=== PATIENT | female | born 1935 | race Caucasian/White ===

== ENCOUNTER → 2018-02-06 07:14 | Outpatient (CLI) | payer MEDICARE, OTHER, SELFPAY ==
[2018-02-06 07:35] LABS: CREATININE FINGERSTICK 0.9 mg/dL (0.55-1.02); EGFR FINGERSTICK > 60.0000 mL/min (>60)
== END ==
PROVIDERS: Family Provider Student in an Organized Health Care Education/Training Program; PCP Student in an Organized Health Care Education/Training Program; Visit Provider Nurse Practitioner Family
DX: R07.9 Chest pain, unspecified (principal)
CPT/HCPCS: 71260; Q9967; A4216

== ENCOUNTER 2018-02-06 08:28 | Inpatient (IN) | payer MEDICARE, OTHER, SELFPAY ==
[2018-02-06] VITALS (12 sets, daily range): BP systolic 134–181; BP diastolic 58–95; PULSE 56–66; RESP 16–18; TEMP 36.1–36.7; O2SAT 94–98; BMI 30.3; BMI 29.9
--- NOTE | 2018-02-06 08:40 | EKG12_ITS ---
Test Reason : SOB Blood Pressure : / mmHG Vent. Rate : 064 BPM Atrial Rate : 064 BPM P-R Int : 160 ms QRS Dur : 078 ms QT Int : 426 ms P-R-T Axes : -59 036 056 degrees QTc Int : 439 ms Normal sinus rhythm Nonspecific ST and T wave abnormality Abnormal ECG Confirmed by SABINE ORTIZ ([id number]), science editor DOMINGA CURRAN ([id number] on 02/12/2018 1:52:58 PM Referred By: Jamal Elena Confirmed By:SABINE ORTIZ
[2018-02-06 09:02] LABS: Absolute Lymphocyte Count 1.21 X10^3/ul (0.83-4.51); Absolute Neutrophil Count 2.7 X10^3/uL (2.0-7.7); Basophil# 0.01 X10^3/uL; Basophil% 0.2 % (0-1); Eosinophil# 0.19 X10^3/uL; Eosinophils% 4.3 % (0-5); Hematocrit 39.3 % (37-47); Hemoglobin 12.3 g/dl (12.0-15.0); Lymphocyte # 1.21 X10^3/ul (4.0); Lymphocyte % 27.4 % (19-41); Mean Corp Hgb Conc 31.3 g/gl (32-36); Mean Corpuscular Hgb 28.1 pg (27.0-32.0); Mean Corpuscular Volume 89.7 fL (81-99); Mean Platelet Vol. 9.2 fl (6.2-12.0); Monocyte% 6.8 % (0-10); Neutrophil # 2.69 X10^3/uL (2.7-7.7); Neutrophil % 61.1 % (47-70); Platelet Count 160 K/mm3 (150-450); RBC Distribution Width CV 13.6 % (11.6-14.6); RBC Distribution Width SD 44.7 fl (35.1-43.9); Red Blood Count 4.38 M/mm3 (4.2-5.4); White Blood Count 4.4 K/mm3 (4.4-11.0)
[2018-02-06 09:04] LABS: POSITIVE COUNT NO; POSITIVE DIFFERENTIAL NO; POSITIVE MORPHOLOGY NO
[2018-02-06] MEDS: Aspirin 81 MG TAB.CHEW 324 MG PO (09:04)
[2018-02-06 09:20] LABS: Anion Gap 9 (5-15); BUN 17 mg/dL (7-18); BUN/Creat Ratio 16.3 RATIO (10-20); Calcium,Total 8.7 mg/dL (8.5-10.1); Chloride 106 mmol/L (98-107); Creatinine, Serum 1.04 mg/dL (0.55-1.02); EST Glomerular Filtration Rate 54 mL/min (>60); Est Glom Filt Rate - Afr Amer 65 mL/min (>60); Estimated Creatinine Clearance 34.12 ml/min; Glucose 89 mg/dL (74-106); Sodium Level 144 mmol/L (136-145)
--- NOTE | 2018-02-06 09:21 | ED.RN ---
LAB RESULTED TROP 3.410. PHYSICIAN NOTIFIED
--- NOTE | 2018-02-06 09:54 | NURSING ---
DR TL ZUNIGA
--- NOTE | 2018-02-06 09:58 | ED.VISSUMM ---
- ER Visit Summary Date of Service: 02/06/18 Chief Complaint: Abnormal CT History of Present Illness: The patient is a 82 F presenting from CAT scan with abnormal CT results. Patient states 2 nights ago she woke up with shortness of breath and diaphoresis. She denied chest pain. She went to see her master dyer today. She was sent for CT scan to check her aortic repair which was done in 2006. CT was found CT showed bilateral PE and she was sent to the ED for further evaluation. Physical Examination: Vitals are stable. Patient is afebrile. Alert no acute distress. HEENT exam is unremarkable. Neck is supple. Lungs are clear and equal bilaterally. Heart is regular rate and rhythm. Abdomen is soft nontender nondistended. Extremities are unremarkable. Skin is warm and dry. No focal neurologic deficit. Remainder of exam is unremarkable. Emergency Department Course and Treatment: EKG is sinus T-wave inverted in V2 is changed from previous EKG 2010. CT chest was reviewed and shows small bilateral PE. Essentially stable appearance of the thoracic aorta. CBC unremarkable. Creatinine 1.04. Troponin is 3.410. Discussed with Dr. Guzman who recommends IV heparin and admission for echocardiogram. Heparin was ordered. Discussed with Dr. Black for admission. Disposition: Admission Impression: Bilateral PE, elevated troponin This note was generated with Voxel dictation software. It may contain incorrect words, spelling, and punctuation that were not noted in review of the chart prior to signing ED Disposition - Plan for ED Patient: Chief Complaint: Shortness of Breath Referrals: Yohannes Acosta DO [Primary Care Provider] -
[2018-02-06] MEDS: Enoxaparin 80 MG/0.8 ML Syringe SC ×2 (12:41→22:15)
[2018-02-06] MEDS: Lisinopril 20 MG Tablet PO (12:42)
[2018-02-06] MEDS: Metoprolol(XL)Succ 100 MG Tablet PO (12:42)
--- NOTE | 2018-02-06 14:27 | NURSING ---
Read and reviewed SN Documentation
--- NOTE | 2018-02-06 16:17 | PCM.HP.STD ---
Problem List (1) Pulmonary emboli Status: Acute Qualifiers: Pulmonary embolism type: other Chronicity: acute (2) NSTEMI (non-ST elevated myocardial infarction) Status: Acute (3) Thyroid nodule Status: Acute (4) Aortic mural thrombus Status: Acute History of Present Illness Date of Admission: 02/06/18 Chief Complaint: shortness of breath. 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 The CAT scan showed a mass in the right thyroid measuring 2.2 x 2.7 cm, multiple small lymph nodes in the mediastinum, several nonobstructive intraluminal filling defects bilaterally consistent with pulmonary emboli. Also noted to have a mural thrombus seen in the proximal abdominal aorta. Patient states that she has had blood clots previously in her neck stent was on Coumadin. 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) Type 1 diabetes mellitus without complications (Chronic) Nonspecific abnormal unspecified cardiovascular function study (Chronic) Palpitations (Chronic) Atrial premature depolarization (Chronic) Ventricular premature depolarization (Chronic) Medical History: Medical History (Last Reviewed 02/06/18 @ 16:24 by Scottie Black DO) Hyperlipidemia (Chronic) E78.5 Hypertension (Chronic) I10 Atherosclerotic heart disease of [place] coronary artery without angina pectoris (Chronic) I25.10 half-way use of drug (Chronic) Z79.899 Type 1 diabetes mellitus without complications (Chronic) E10.9 Nonspecific abnormal unspecified cardiovascular function study (Chronic) R94.30 Palpitations (Chronic) R00.2 Atrial premature depolarization (Chronic) I49.1 Ventricular premature depolarization (Chronic) I49.3 Dizziness and giddiness R42 Precordial chest pain R07.2 Allergies paroxetine HCl [From Paxil] Allergy (Verified 02/06/18 08:30) Nausea rosuvastatin calcium [From Crestor] Allergy (Verified 02/06/18 08:30) Nausea simvastatin [From Zocor] Allergy (Verified 02/06/18 08:30) Nausea Home Medications: Ambulatory Orders Medication Instructions Recorded Aspirin [Aspirin, Baby] 81 mg PO DAILY@0800 10/01/14 Lisinopril [Zestril] 20 mg PO DAILY 10/01/14 Metoprolol(XL)Succ [Toprol Xl 100 mg PO DAILY 10/01/14 (Beta Lazara)] Oxycodone HCl/Acetaminophen 1 - 2 tab PO Q4H PRN PRN #30 tab 10/08/14 [Percocet 5/325] nitroglycerin 0.4 mg sublingual 0.4 mg SUBLINGUAL Q5M PRN 08/21/17 tablet Surgical History: Surgical History (Last Reviewed 02/06/18 @ 16:24 by Scottie Black DO) History of aortic aneurysm repair (Chronic) Onset Date: ~2008 Z98.890, Z86.79 History of bladder suspension procedure Z98.890, Z87.448 History of hernia repair Z98.890, Z87.19 History of partial hysterectomy Z90.711 Smoking Status: Never smoker Tobacco Use: Non-smoker Alcohol: None Drugs: None - *Family History Maternal Family History: Family History (Last Reviewed 02/06/18 @ 16:24 by Scottie Black DO) Brother Heart disease Father Myocardial infarction Review of Systems Constitutional: Denies: Anorexia, Chills, Fever Eyes: Denies: Blurred vision, Double vision HEENT: Denies: Head Aches, Sinus Congestion, Sinus Drainage Cardiovascular: Reports: Chest Pain. Denies: Edema Respiratory: Reports: Shortness of Breath. Denies: Cough Gastrointestinal: Denies: Abdominal Pain, Nausea, Vomiting Genitourinary: Denies: Dysuria Gynecological: Denies: Breast symptoms Musculoskeletal: Denies: Joint Pain, Joint Tenderness Skin: Denies: Rash, Wounds Neurological: Denies: Numbness, Tingling, Focal weakness Psychiatric: Denies: Anxiety, Depression Hematologic/ Lymphatic: Reports: Hx of blood clot. Denies: Easy Bruising, Easy Bleeding Comment: All review of systems are negative except as mentioned in the history of present illness and the other review of systems. VTE Information - Inpt Only VTE Present on Admission: No VTE Pharm Prophylaxis ordered?: Yes Patient Problems: Active and Suspected Problems (Last Updated 08/21/17 @ 11:08 by Diana Caballero) Pulmonary emboli (Acute) NSTEMI (non-ST elevated myocardial infarction) (Acute) Thyroid nodule (Acute) Aortic mural thrombus (Acute) - Physical Exam General: Alert, Cooperative, No apparent distress HEENT: Atraumatic, Normocephalic Oral: Moist Mucosa, No Gingival or Mucosal Lesions/ Ulcerations Neck: No Nodes, Thyroid Normal Size and Texture Lungs: Clear to auscultation, Normal air movement, No rhonchi, No wheeze Cardiovascular: Regular rate, Regular Rhythm, Normal S1, Normal S2, No murmurs Abdomen: Bowel Sounds Present, Soft, Non Tender, Non-Distended, No Hepato-splenomegaly Extremities: No edema, No Calf Tenderness Skin: No rashes, No breakdown Musculoskeletal: No Tenderness to Palpation of Joints or Extremities, No Muscle Wasting Neurological: Sensory exam intact to light touch and pain, - - No clonus. Psych/Mental Status: Normal Affect, Appropriate Vital Signs Temp Pulse Resp BP Pulse Ox 36.7 C 58 L 16 169/69 H 96 02/06/18 10:55 02/06/18 15:30 02/06/18 10:55 02/06/18 10:55 02/06/18 10:55 Oxygen Delivery Method Room Air Weight: 74.4 kg Body Mass Index (BMI) 29.9 Intake and Output for Last 24 Hours 02/04/18 02/05/18 02/06/18 23:59 23:59 23:59 Intake Total 240 / 240 Balance 240 / 240 Laboratory Tests Past 24 Hrs 02/06/18 02/06/18 12:00 14:45 Troponin I 3.220 H* 2.810 H* CT chest:There is inhomogeneous enlargement of the right lobe of the thyroid. There is a 2.2 cm x 2.7 cm low density mass in the its inferior pole. Minimal increased markings at the lung bases suggestive of scarring. There is no demonstrated pleural abnormality. Sternal cerclage wires are present from a prior sternotomy. There are multiple small lymph nodes within the mediastinum, which are normal in size and morphology most compatible with reactive lymph hyperplasia. Normal hilar regions. There are several nonobstructive intraluminal filling defects in the left intervertebral bore pulmonary artery and the branches in the left lower lobe. Small filling defects are also seen in branches of the right lower lobe pulmonary arteries as well as the right upper lobe pulmonary arteries. This is in keeping with the pulmonary embolism. They a descending thoracic aorta as a transverse dimension of 3.5 cm. Stable appearance of the descending thoracic aorta with evidence of ectasia and tortuosity at the diaphragmatic hiatus. Mural thrombus is seen in the proximal abdominal aorta. The transverse dimension of the proximal descending thoracic aorta just distal to the aortic arch measures 3.3 cm. There are multi-level degenerative changes of the thoracic spine. There is no demonstrated abnormality of the visualized upper abdomen. Assessment/Plan All Active Problems (Last Updated 08/21/17 @ 11:08 by Diana Caballero) Pulmonary emboli (Acute) NSTEMI (non-ST elevated myocardial infarction) (Acute) Thyroid nodule (Acute) Aortic mural thrombus (Acute) 1. Bilateral pulmonary emboli Suspect coming from the legs with patient is noted to have an abdominal aortic mural thrombus that could have been the source Currently on Lovenox, will plan is to change management administrator to oral agents on the I discussed the patient about the novel anticoagulants and Coumadin. Recommended the novel anticoagulants over Coumadin. Patient agrees. We will likely initiate on February 07. Will check echocardiogram to evaluate for RV strain Duplex of the lower extremities is not necessary as it will not change the patient's management Patient will need to be on anticoagulation for at least 6 months but it may be lifelong as this is an provoked clot and patient has a reported history of clots in her neck but I am not sure if those were DVTs or peripheral arterial disease 2. Non-STEMI Presumably type II due to RV strain from the pulmonary emboli However, on review of the images the clot burden is lower than I would expect with this kind of elevation of troponins Will consult cardiology for further input 3. Thyroid mass/nodule Measures 2.2 x 2.7 cm Will check TSH and thyroid ultrasound 4. Aortic mural thrombus Incidental finding on the CAT scan Patient be on anticoagulation Patient's son at bedside and all questions answered. Code Visit Inpatient E&M: 95033 Init Hosp L3
--- NOTE | 2018-02-06 19:12 | PCM.CONS.C ---
Problem List (1) Abnormal cardiac enzyme level Status: Acute (2) NSTEMI (non-ST elevated myocardial infarction) Status: Acute (3) Pulmonary emboli Status: Acute Qualifiers: Pulmonary embolism type: other Chronicity: acute (4) History of aortic aneurysm repair Status: Chronic (5) Atherosclerotic heart disease of [place] coronary artery without angina pectoris Status: Chronic Qualifiers: [place] vs. transplanted heart: three affiliated heart Qualified Code(s): I25.10 - Atherosclerotic heart disease of [place] coronary artery without angina pectoris (6) Hyperlipidemia Status: Chronic Qualifiers: Hyperlipidemia type: pure hypercholesterolemia Qualified Code(s): E78.00 - Pure hypercholesterolemia, unspecified; E78.0 - Pure hypercholesterolemia (7) Hypertension Status: Chronic Qualifiers: Hypertension type: essential hypertension Qualified Code(s): I10 - Essential (primary) hypertension Reason for Consult Date of Consultation: 02/06/18 History of Present Illness: The patient is a 82 year old white female with a past medical history which has included underlying thoracic aortic aneurysm status post repair-2006, [id number] significant, hyperlipidemia and hypertension who presents for evaluation of abnormal cardiac enzymes in the setting of acute pulmonary emboli. The patient states for several months now she has not felt well. However more recently she has noted concerns of shortness of breath and dyspnea associated with chest discomfort. These symptoms have waxed and waned. She has denied ongoing orthopnea or PND or peripheral pitting edema. There has been no clear-cut near syncopal or syncopal event that she admits to at this time. She was further evaluated by the outpatient staff with a follow-up chest CT scan. She was noted to have evidence on her report of a stable thoracic aortic repair and bilateral pulmonary emboli. She was evaluated in the emergency department for the aforementioned concerns. There she was found to have an abnormal troponin I level which has subsequently decreased. An ECG was reported which was reported as demonstrating sinus rhythm with a T-wave abnormality in lead V2 reportedly unchanged from prior ECG from 2010. (The ECG of today is currently unavailable at this time for review). The patient was subsequently placed in the PCU for further evaluation care and medical management including anticoagulant therapy. At the present time she states she is resting comfortably. She has had no obvious acute symptoms. She states she has not noted an elevated heart rate or elevated respiratory rate. She denies any recent history of prolonged immobility. She denies any recent surgical procedures. [] Past Medical History Allergies/Adverse Reactions: Allergies paroxetine HCl [From Paxil] Allergy (Verified 02/06/18 08:30) Nausea rosuvastatin calcium [From Crestor] Allergy (Verified 02/06/18 08:30) Nausea simvastatin [From Zocor] Allergy (Verified 02/06/18 08:30) Nausea Home Medications: Ambulatory Orders Medication Instructions Recorded Aspirin [Aspirin, Baby] 81 mg PO DAILY@0800 10/01/14 Lisinopril [Zestril] 20 mg PO DAILY 10/01/14 Metoprolol(XL)Succ [Toprol Xl 100 mg PO DAILY 10/01/14 (Beta Lazara)] Oxycodone HCl/Acetaminophen 1 - 2 tab PO Q4H PRN PRN #30 tab 10/08/14 [Percocet 5/325] nitroglycerin 0.4 mg sublingual 0.4 mg SUBLINGUAL Q5M PRN 08/21/17 tablet Past Medical History (Chronic Problems): Chronic Problems (Last Reviewed 02/06/18 @ 16:24 by Scottie Black DO) History of aortic aneurysm repair (Chronic ~2008) Hyperlipidemia (Chronic) Hypertension (Chronic) Atherosclerotic heart disease of [place] coronary artery without angina pectoris (Chronic) 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) Type 1 diabetes mellitus without complications (Chronic) Nonspecific abnormal unspecified cardiovascular function study (Chronic) Palpitations (Chronic) Atrial premature depolarization (Chronic) Ventricular premature depolarization (Chronic) - *Family History Maternal Family History: Family History (Last Reviewed 02/06/18 @ 16:24 by Scottie Black DO) Brother Heart disease Father Myocardial infarction Smoking Status: Never smoker Tobacco Use: Non-smoker Alcohol: None Drugs: None Review of Systems - Review of Systems General: Denies: Fever, Night Sweats, Fatigue Cardiovascular: Reports: Chest Discomfort, Shortness of Breath. Denies: Orthopnea, PND, Peripheral Edema, Palpitations, Lightheadedness, Dizziness, Near Syncope, Syncope Respiratory: Reports: Shortness of Breath. Denies: Cough, Sputum Production, Hemoptysis Gastrointestinal: Denies: Hematemesis, Hematochezia, Melena Genitourinary: Denies: Dysuria, Hematuria Skin: Denies: Rash Subjectve: This is an 82-year-old white female who appears to be resting comfortably at the moment in no acute distress. Objective: Vital Signs Temp Pulse Resp BP Pulse Ox 98.1 F 65 16 135/63 H 98 02/06/18 16:55 02/06/18 16:55 02/06/18 16:55 02/06/18 16:55 02/06/18 16:55 Oxygen Delivery Method Room Air Weight: 164 lb 0.383 oz Body Mass Index (BMI) 29.9 Intake and Output for Last 24 Hours 02/04/18 02/05/18 02/06/18 23:59 23:59 23:59 Intake Total 600 / 600 Balance 600 / 600 General: Awake, Alert, Oriented x 3, Cooperative, No Acute Distress HEENT: Atraumatic, Normocephalic, PERRL, EOMI, Sclera Non Icteric Oral: Moist Mucosa Neck: Supple, Good ROM, No JVD Lungs: Clear to auscultation Cardiovascular: Regular Rhythm, Normal S1, Physiologically Split S2 Vascular: No Carotid Bruits Abdomen: Bowel Sounds Present, Soft, Non Tender Extremities: No Cyanosis, No Clubbing, No edema Lymphatic: No Lymph Node Enlargement Neurological: No Focal Motor or Sensory Deficit Psych/Mental Status: Appropriate, Normal Affect 02/06/18 12:00: Troponin I 3.220 H* 02/06/18 14:45: Troponin I 2.810 H* Rhythm: Sinus rhythm EKG: As noted above ECHO: 09/15/2014: Left ventricle: Normal with an LVEF of 60%; mild MR; mild TR; mild TR; estimated RV systolic pressure of 34 mmHg Cardiac Cath: 06/06/2006: [facility]: Left ventricle normal with an LVEF 60%; left main coronary artery normal; LAD status post first diagonal branch with a an eccentric 25% stenosis; diagonal branch system with 10% stenosis; LCx with diffuse 10-25% stenosis; RCA with proximal 25% smooth eccentric appearing stenosis; aortic root aneurysmal CT Surgery: 06/22/2006: [facility]: Graft wrapping of the distal aortic suture line with the graft being a 33 mm tube graft Chest CT Scan: As noted above: Please see official report Assessment/Plan 1. Chest pain/shortness of breath The patient presents with chest pain/shortness of breath. There is concern this may be related to her underlying pulmonary emboli. However she has been found to have abnormal cardiac enzymes which may be related to her pulmonary emboli and right ventricular strain and a type II supply demand mismatch non-ST segment elevation ID type event. She is being monitored. Her cardiac enzymes are being followed and are decreasing. Her ECG will be followed. A transthoracic echocardiogram has been requested to evaluate her right and left ventricular size, wall motion, and systolic function. In the interim she is being treated with medical management. This has included anticoagulant therapy. 2. Abnormal cardiac enzymes Again she has abnormal cardiac enzymes. These may be related to her pulmonary emboli as described above. However she is also being evaluated for any obvious separate primary cardiovascular involvement. This will include her follow-up ECGs, echocardiogram, and she may need additional noninvasive or invasive studies as deemed appropriate. 3. Non-ST segment elevation ID At the present time the concern is her findings compatible with a non-ST segment elevation ID are compatible to her PE with right ventricular strain and supply demand mismatch. However she will be further evaluated. Her echocardiogram will be assessed for any obvious wall motion abnormalities that would suggest underlying progression of CAD and a separate myocardial related event. She may also need additional noninvasive or invasive studies to screen for or further dealing made any concerns of ongoing CAD/myocardial ischemia, etc. related events. In the interim she will continue medical management. This has included her history of antiplatelet therapy, nitrates as needed, her beta-blockers, her afterload reducing agents, lipid-lowering agents, etc. 4. Thoracic aortic aneurysm status post repair-remote The CT scan would suggest that this is stable with no acute findings 5. CAD In the past she has had non-angiographically significant CAD. She has not required repeat invasive study. Based upon the ongoing concerns she will undergo further evaluation care as described above. 6. Hyperlipidemia He should continue risk factor evaluation care as deemed appropriate. 7. Hypertension She will continue medical management as deemed appropriate. 8. Thoracic aortic aneurysm status post repair-remote CT scan would suggest that this is stable with no acute findings Comment: The above was discussed and reviewed with the patient and her family members present. The patient's case is also been previously discussed with the [facility] emergency department staff. This note was generated with transOMICation software. It may contain incorrect words, spelling, and punctuation that were not noted in checking the note before signing.
[2018-02-06] MEDS: 0.9% NaCl Peripheral Flush Adult/Peds IV (22:07)
[2018-02-07 03:00] VITALS: PULSE 59
[2018-02-07 04:00] VITALS: BP 158/58; PULSE 58; RESP 18; TEMP 36.7; O2SAT 95
[2018-02-07 05:06] LABS: Absolute Lymphocyte Count 1.38 X10^3/ul (0.83-4.51); Absolute Neutrophil Count 2.3 X10^3/uL (2.0-7.7); Basophil# 0.03 X10^3/uL; Basophil% 0.7 % (0-1); Eosinophil# 0.22 X10^3/uL; Hematocrit 38.5 % (37-47); Hemoglobin 12.1 g/dl (12.0-15.0); Lymphocyte # 1.38 X10^3/ul (4.0); Lymphocyte % 31.5 % (19-41); Mean Corp Hgb Conc 31.4 g/gl (32-36); Mean Corpuscular Volume 89.1 fL (81-99); Mean Platelet Vol. 9.4 fl (6.2-12.0); Monocyte% 9.1 % (0-10); Neutrophil # 2.34 X10^3/uL (2.7-7.7); Neutrophil % 53.5 % (47-70); Platelet Count 163 K/mm3 (150-450); RBC Distribution Width CV 13.4 % (11.6-14.6); RBC Distribution Width SD 43.6 fl (35.1-43.9); Red Blood Count 4.32 M/mm3 (4.2-5.4); White Blood Count 4.4 K/mm3 (4.4-11.0)
[2018-02-07 05:12] LABS: International Normalized Ratio 1.1
[2018-02-07 05:13] LABS: Partial Thromboplast Time 37.5 Seconds (24.1-36.2)
[2018-02-07 05:18] LABS: Anion Gap 8 (5-15); BUN 17 mg/dL (7-18); BUN/Creat Ratio 18.1 RATIO (10-20); Calcium,Total 8.7 mg/dL (8.5-10.1); Chloride 110 mmol/L (98-107); Creatinine, Serum 0.94 mg/dL (0.55-1.02); EST Glomerular Filtration Rate 61 mL/min (>60); Est Glom Filt Rate - Afr Amer 74 mL/min (>60); Estimated Creatinine Clearance 37.75 ml/min; Glucose 97 mg/dL (74-106); Sodium Level 145 mmol/L (136-145)
[2018-02-07 05:29] LABS: POSITIVE COUNT NO; POSITIVE DIFFERENTIAL NO; POSITIVE MORPHOLOGY NO
[2018-02-07 05:37] VITALS: BP 132/57; PULSE 56; RESP 18; TEMP 36.6; O2SAT 96
[2018-02-07] MEDS: Aspirin 81 MG TAB.CHEW PO (05:38)
[2018-02-07] MEDS: Lisinopril 20 MG Tablet PO (05:39)
[2018-02-07 05:45] LABS: Cholesterol 224 mg/dL (200); High Density Lipoprotein 36 mg/dL; Thyroid Stim Hormone (TSH) 0.67 uIU/mL (0.358-3.74); Triglycerides 134 mg/dL; Very Low Density Lipoprotein 27 mg/dL (5-40)
--- NOTE | 2018-02-07 05:55 | EKG12_ITS ---
Test Reason : AM EKG Blood Pressure : / mmHG Vent. Rate : 064 BPM Atrial Rate : 064 BPM P-R Int : 156 ms QRS Dur : 082 ms QT Int : 442 ms P-R-T Axes : 002 061 080 degrees QTc Int : 455 ms Normal sinus rhythm Nonspecific ST and T wave abnormality Abnormal ECG When compared with ECG of 06-FEB-2018 09:05, MANUAL COMPARISON REQUIRED, DATA IS UNCONFIRMED Confirmed by SABINE ORTIZ ([id number]), book or script editor DOMINGA CURRAN ([id number]) on 02/12/2018 3:16:43 PM Referred By: Jamal Elena Confirmed By:SABINE ORTIZ
--- NOTE | 2018-02-07 09:23 | STRESSREP ---
Stress Test Report Date: 02/07/2018 Procedure: Pharmacologic stress nuclear imaging study Indications: Chest pain; shortness of breath; abnormal cardiac enzymes; status post thoracic aortic aneurysm repair; bilateral pulmonary emboli Consent: Per the patient Procedure: The patient underwent pharmacologic (Regadenoson) evaluation with a peak heart rate of 83 beats per minute (59 predicted maximal heart rate) and a peak blood pressure of 130/76 mmHg. The baseline ECG demonstrated sinus bradycardia: Nonspecific T-wave abnormality. The peak pharmacologic ECG demonstrated no obvious ECG changes. There were no cardiac dysrhythmias pretest, during pharmacologic infusion, or recovery. There was no complaint of chest discomfort during pharmacologic infusion or recovery. The examination was discontinued secondary to completion of protocol. Impression: 1. Pharmacologic (Regadenoson) evaluation 2. Peak pharmacologic ECG with with continued nonspecific T-wave abnormality with no obvious ECG changes. 3. There were no cardiac dysrhythmias pretest, during pharmacologic infusion, or recovery 4. Nuclear images pending Myocardial perfusion imaging study: Technique: The patient was injected with 11.2 millicuries of technetium 99m Cardiolite and subsequently rest SPECT Cardiolite nuclear imaging was obtained in the horizontal long, vertical long, and short axis views. The patient underwent pharmacologic (Regadenoson) evaluation with a peak heart rate of 83 beats per minute (59 % percent predicted maximal heart rate) and a peak blood pressure of 130/76 mmHg. The patient was injected with 33.1 millicuries of technetium 99m Cardiolite and subsequently stress SPECT Cardiolite nuclear imaging was obtained in the horizontal long, vertical long, and short axis views. A gated Cardiolite study at peak stress was obtained. Interpretation: Rest and stress SPECT Cardiolite nuclear imaging status post realignment, normalization, and attenuation correction demonstrate relative uniform tracer uptake and myocardial perfusion appearing within normal limits. There is end systolic thickening and brightening. The gated Cardiolite study demonstrates myocardial thickening and inward wall motion. The reported LVEF is 69 %. Impression: 1. Rest and stress SPECT Cardiolite nuclear imaging demonstrate relative uniform tracer uptake and myocardial perfusion appearing within normal limits. 2. The gated Cardiolite study reports an LVEF of 69 %. This note was generated with KS12ation software. It may contain incorrect words, spelling, and punctuation that were not noted in checking the note before signing.
[2018-02-07 09:32] VITALS: BP 125/64; PULSE 65; RESP 16; TEMP 36.7; O2SAT 93
[2018-02-07 09:39] VITALS: PULSE 65
[2018-02-07] MEDS: Enoxaparin 80 MG/0.8 ML Syringe SC (09:39)
[2018-02-07] MEDS: Metoprolol(XL)Succ 100 MG Tablet PO (09:39)
[2018-02-07 11:00] VITALS: PULSE 68
--- NOTE | 2018-02-07 12:47 | CASEMGMT ---
RN CM Assessment complete. See Link. -Pt denies any dc needs. States she drives, is independent, no needs identified. Jhonatan HAZELN RN ACM
--- NOTE | 2018-02-07 13:22 | CASEMGMT ---
Social Work Met with patient in room as RN CM indicated that patient was interested in completing advance directives. This SW spent much time discussing/explaining advance directive documents. Patient would like to discuss this with her family before she completes the documents. This SW provided patient with advance directives forms and this SW card to take in case questions arise. SW to be available if additional needs/questions arise. SHWETA Dodge
--- NOTE | 2018-02-07 13:35 | PCM.DC ---
- Discharge Diagnoses Current Active Problems: Current Active and Chronic Problems (Last Reviewed 02/06/18 @ 16:24 by Scottie Black DO) Pulmonary emboli (Acute) NSTEMI (non-ST elevated myocardial infarction) (Acute) Thyroid nodule (Acute) Aortic mural thrombus (Acute) Abnormal cardiac enzyme level (Acute) You will use the following diet at home:: Cardiac - low cholesterol, low sodium Your food should be the consistency of: Regular Your liquids should be the consistency of: Regular/Thin Discharge Activity: Return to Normal Activity Additional Instructions: Please discuss the findings of your thyroid ulstrasound with your PCP. Allergies/Adverse Reactions: Allergies paroxetine HCl [From Paxil] Allergy (Verified 02/06/18 08:30) Nausea rosuvastatin calcium [From Crestor] Allergy (Verified 02/06/18 08:30) Nausea simvastatin [From Zocor] Allergy (Verified 02/06/18 08:30) Nausea Medications to take at Discharge Aspirin [Aspirin, Baby] 81 mg PO DAILY@0800 10/01/14 Lisinopril [Zestril] 20 mg PO DAILY 10/01/14 Metoprolol(XL)Succ [Toprol Xl (Beta Lazara)] 100 mg PO DAILY 10/01/14 Oxycodone HCl/Acetaminophen [Percocet 5-325] 1 - 2 tab PO Q4H PRN PRN #30 tab 10/08/14 nitroglycerin 0.4 mg sublingual tablet 0.4 mg SUBLINGUAL Q5M PRN 08/21/17 Rivaroxaban [Xarelto] 15 mg PO BID #42 tab 02/07/18 Rivaroxaban [Xarelto] 20 mg PO DAILY #30 tab 02/07/18 The following prescriptions were given: Rivaroxaban [Xarelto] 15 mg PO BID #42 tab Rivaroxaban [Xarelto] 20 mg PO DAILY #30 tab Primary Care Physician: Yohannes Acosta DO [Primary Care Provider] - Please follow up with your Primary Care Physician in: 1 week Test Results: Test results from this visit will be discussed in further detail at your follow-up appointment, if applicable. Proposed Discharge Date: 02/07/18
--- NOTE | 2018-02-07 14:31 | CASEMGMT ---
Per Magdaleno WINKLER, pt to be sent home on Xarelto and med was e-scribed to [facility] previously. Per pharmacist, pt's initial co-pay for the Xarelto 15mg twice daily will be $320 and the Xarelto 20mg daily will then be $47.00. Pt updated on all at this time and provided with Xarelto 30 free co-pay card at this time, voices understanding. Advised pt that she could also place call to [email or web address] to check on any discounts directly from them after using the coupon card, voices understanding. Advised pt to f/u with Cardiology and if there are future concerns with the bo of Xarelto to contact [facility], voices understanding. George DAIGEL CM
--- NOTE | 2018-02-07 15:32 | PCM.DC.SUM ---
<Reid Brothers - Last Filed: 02/07/18 15:32> Discharge Date and Diagnosis Date of Admission: 02/06/18 Date of Discharge: 02/07/18 - Primary Discharge Diagnosis Acute pulmonary emboli NSTEMI 2/2 above BL thyroid masses Hx aortic aneurysm repair HLD HTN - Secondary Discharge Diagnosis Chronic Problems (Last Reviewed 02/06/18 @ 16:24 by Scottie Black DO) History of aortic aneurysm repair (Chronic ~2008) Hyperlipidemia (Chronic) Hypertension (Chronic) Atherosclerotic heart disease of [place] coronary artery without angina pectoris (Chronic) care home use of drug (Chronic) Type 1 diabetes mellitus without complications (Chronic) Nonspecific abnormal unspecified cardiovascular function study (Chronic) Palpitations (Chronic) Atrial premature depolarization (Chronic) Ventricular premature depolarization (Chronic) Hospital Course and Treatment Imaging Results: Echo: Interpretation Summary The study was technically difficult. Left ventricular systolic function is normal. The estimated ejection fraction is 55 %. The left atrium is mildly enlarged. The right atrium is mildly enlarged. Mild (1+) mitral valve insufficiency. Mild to moderate (1-2+) tricuspid valve insufficiency. Mild (1+) pulmonic valve insufficiency. Epicardial fat. Right ventricular systolic pressure estimated to be 42 mmHg. Transmitral diastolic flow velocities suggest diastolic dysfunction (pseudonormal pattern). Stress Test: Impression: 1. Rest and stress SPECT Cardiolite nuclear imaging demonstrate relative uniform tracer uptake and myocardial perfusion appearing within normal limits. 2. The gated Cardiolite study reports an LVEF of 69 %. US/Thyroid IMPRESSION: Bilateral thyroid masses. Mildly prominent thyroid gland. Consults: [facility] - cardiology Operations: None Procedures: 2-D Echocardiogram, Stress test Summary of Care Provided: Physical exam on day of discharge: General: Resting comfortably NAD Psych: A/Ox3 normal affect HEENT: PEARRLA AT NC Neck: Supple NT CV: RRR no m/t/r/g/h Resp: CTA Abd: [id number] Soft NT no guarding or rigidity Ext: DP2+= no edema Skin: W/D normal turgor Lymph/Heme: No active bleeding or adenopathy Neuro: CN2-12 intact Hospital course: The patient is a 82 year old F with a history of blood clots in her neck, history of aortic aneurysm repair, hyperlipidemia, bilateral thyroid masses, hypertension, who presented to the emergency room with chief complaint of shortness of breath progressively worsening for several weeks. She had reported to her cardiology office and had a CT of the chest performed demonstrating a mass in the right thyroid measuring 2.2 x 2.7 cm, multiple small lymph nodes in the mediastinum, filling defects consistent with pulmonary emboli, and was sent to the hospital for admission. She had previously been on Coumadin for the clots in her neck, and their etiology is unclear. She was started on Xarelto. She is maintained on telemetry. She underwent a thyroid ultrasound which demonstrated 2 large thyroid masses however the patient stated that she was aware of these and had foregone biopsy in the past. TSH was normal. Echocardiogram was performed which demonstrated an EF of 55%, mild to moderate 1-2+ tricuspid valve insufficiency, RVSP of 42 mmHg, diastolic dysfunction. She does not require oxygen. She had markedly elevated cardiac enzymes with a troponin of 3.410 which trended down to 2.810 was felt to have non-ST segment elevation myocardial infarction secondary to demand ischemia from the PE. Cardiology was consulted and she underwent a stress test which was negative. LDL was checked and was elevated at 161 with an elevated total cholesterol 224, however the patient is statin intolerant. I advised a low-cholesterol diet and follow-up. I also advised her to discuss the findings of her thyroid ultrasound with her PCP to decide if there will be further work up. She was discharged home to continue Xarelto for her PEs. She will require follow-up with her PCP in 1-2 weeks. This patient was seen by Reid Brothers PA-C under the supervision of Doctor Wayne. [] Discharge Diet: Low fat/ Low Cholesterol, 2000 mg Sodium Diet Discharge Activity: Return to Normal Activity Home Medications: Medications to take at Discharge Aspirin [Aspirin, Baby] 81 mg PO DAILY@0800 10/01/14 Lisinopril [Zestril] 20 mg PO DAILY 10/01/14 Metoprolol(XL)Succ [Toprol Xl (Beta Lazara)] 100 mg PO DAILY 10/01/14 Oxycodone HCl/Acetaminophen [Percocet 5-325] 1 - 2 tab PO Q4H PRN PRN #30 tab 10/08/14 nitroglycerin 0.4 mg sublingual tablet 0.4 mg SUBLINGUAL Q5M PRN 08/21/17 Rivaroxaban [Xarelto] 15 mg PO BID #42 tab 02/07/18 Rivaroxaban [Xarelto] 20 mg PO DAILY #30 tab 02/07/18 Following Prescrptions Were Given to Patient: Rivaroxaban [Xarelto] 15 mg PO BID #42 tab Rivaroxaban [Xarelto] 20 mg PO DAILY #30 tab Primary Care Physician: Yohannes Acosta DO [Primary Care Provider] - Please follow up with your Primary Care Physician in: 1 week Disposition: Home Minutes spent on discharge:: 35 Patient Condition:: Stable Medical Necessity - Tobacco Use Smoking Status: Never smoker Tobacco Use: Non-smoker Meaningful Use Info Meaningful Use Diagnoses (Choose all that apply): None applicable <Scottie Black - Last Filed: 02/07/18 16:29> Discharge Date and Diagnosis - Secondary Discharge Diagnosis Chronic Problems (Last Reviewed 02/06/18 @ 16:24 by Scottie Black DO) History of aortic aneurysm repair (Chronic ~2008) Hyperlipidemia (Chronic) Hypertension (Chronic) Atherosclerotic heart disease of [place] coronary artery without angina pectoris (Chronic) care home use of drug (Chronic) Type 1 diabetes mellitus without complications (Chronic) Nonspecific abnormal unspecified cardiovascular function study (Chronic) Palpitations (Chronic) Atrial premature depolarization (Chronic) Ventricular premature depolarization (Chronic) Hospital Course and Treatment Operations: None Procedures: 2-D Echocardiogram, Stress test Summary of Care Provided: Patient seen and examined independently. Data reviewed. I agree with the above note by the physician educational assistant teacher. The patient is a 82 year old F presents with shortness of breath. Patient was found to have bilateral PE. Additionally patient did have a non-ST elevation myocardial infarction based on her cardiac enzymes. Patient was seen by cardiology and underwent an echocardiogram as well as a stress test. Stress test was normal. The non-ST vision myocardial infarction is a type II event related with the heart strain given the pulmonary emboli. Patient will continue with Xarelto. Patient will be on Xarelto for at least 6 months. Patient to follow-up with hematology in the interim to see if she may require lifelong anticoagulation. Additionally, patient was noted to have a thyroid masses in both lobes of her thyroid with the right being greater than the left. This was addressed to the patient and she expressed knowledge of this seen at the been present there for about 10 years. She does not know the size stated that about 10 years ago the were going to have a biopsy but she was simply found to have a carotid stenosis and that I did not occur at that time and it is unclear but may just been lost to follow-up as subsequently. It is unclear if these have increased in size over this time but I would further defer in regards to the patient getting a biopsy for her primary care physician. To review prior ultrasounds to see if there has been a change or not. If there is no change in the chance of this being malignancy is very low but if there has been subsequent change then biopsy would be recommended as the size is greater than 3 cm on the right. The report does not mention that they are cystic in nature. [] Discharge Diet: Low fat/ Low Cholesterol, 2000 mg Sodium Diet Discharge Activity: Return to Normal Activity Disposition: Home Minutes spent on discharge:: 35 Patient Condition:: Stable Meaningful Use Info Meaningful Use Diagnoses (Choose all that apply): VTE - VTE Anticoag overlap given w/in hospital stay or rx'd at dc?: No Pt receive overlap for 5 days?: No Reason overlap not ordered, prescribed, or given for 5 days: Procedure Not Indicated Code Visit OBSV E&M: 22338 Observation care discharge
--- NOTE | 2018-02-07 16:58 | PCM.PN.CARD ---
Subjectve: The patient was evaluated earlier this day. She appeared to be without acute symptoms or adverse events. Objective: Vital Signs Temp Pulse Resp BP Pulse Ox 98.0 F 68 16 125/64 H 93 02/07/18 09:32 02/07/18 11:00 02/07/18 09:32 02/07/18 09:32 02/07/18 09:32 Oxygen Delivery Method Room Air Weight: 164 lb 0.383 oz Body Mass Index (BMI) 29.9 Intake and Output for Last 24 Hours 02/05/18 02/06/18 02/07/18 23:59 23:59 23:59 Intake Total 600 / 600 620 / 620 Balance 600 / 600 620 / 620 General: Awake, Alert, Oriented x 3, Cooperative, No Acute Distress HEENT: Atraumatic, Normocephalic, PERRL, EOMI, Sclera Non Icteric Oral: Moist Mucosa Neck: Supple, Good ROM, No JVD Lungs: Clear to auscultation Cardiovascular: Regular Rhythm, Normal S1, Normal S2 Abdomen: Bowel Sounds Present, Soft, Non Tender Extremities: No Cyanosis, No Clubbing, No edema Neurological: No Focal Motor or Sensory Deficit Psych/Mental Status: Appropriate, Normal Affect 02/07/18 04:50: Triglycerides 134, Cholesterol 224 H, LDL Cholesterol 161 H, VLDL Cholesterol 27, HDL Cholesterol 36 L 02/07/18 04:50: WBC 4.4, RBC 4.32, Hgb 12.1, Hct 38.5, MCV 89.1, MCH 28.0, MCHC 31.4 L, RDW 13.4, RDW Differential 43.6, Plt Count 163, MPV 9.4, Immature Gran % (Auto) 0.200, Neut % (Auto) 53.5, Lymph % (Auto) 31.5, [place] % (Auto) 9.1, Eos % (Auto) 5.0, Baso % (Auto) 0.7, Absolute Neuts (auto) 2.3, Total Counted Not Reportable 02/07/18 04:50: PT 14.0, INR 1.1, APTT 37.5 H 02/07/18 04:50: Sodium 145, Potassium 4.0, Chloride 110 H, Carbon Dioxide 27.0, Anion Gap 8, BUN 17, Creatinine 0.94, Est GFR (MDRD) Af Amer 74, Est GFR (MDRD) Non-Af 61, BUN/Creatinine Ratio 18.1, Glucose 97, Calcium 8.7 Rhythm: Sinus rhythm ECHO: See official report Stress Test: See official report Medical Necessity - Tobacco Use Smoking Status: Never smoker Tobacco Use: Non-smoker Assessment/Plan 1. Chest pain/shortness of breath The patient presents with chest pain/shortness of breath. There is concern this may be related to her underlying pulmonary emboli. However she has been found to have abnormal cardiac enzymes which may be related to her pulmonary emboli and right ventricular strain and a type II supply demand mismatch non-ST segment elevation HI type event. Her cardiac enzymes are being followed and are decreasing. Her transthoracic echocardiogram demonstrated overall preserved left ventricular wall motion and systolic function. Her pharmacologic stress nuclear imaging study demonstrated myocardial perfusion appearing within normal limits. Thus it does not appear she has evidence for underlying acute coronary syndrome with respect to a type I event with ongoing myocardial ischemia or injury. Hopefully the studies are reassuring that her abnormal cardiac enzymes are related to her pulmonary emboli and right ventricular strain and a type II supply demand mismatch non-ST segment elevation HI event. 2. Abnormal cardiac enzymes Again she has abnormal cardiac enzymes. These may be related to her pulmonary emboli as described above. He has undergone evaluation and care as noted above. She will continue noncardiac evaluation and care of her pulmonary emboli. 3. Non-ST segment elevation HI At the present time the concern is her findings compatible with a non-ST segment elevation HI are compatible to her PE with right ventricular strain and supply demand mismatch. She has been assessed as noted above. The present time she will continue risk factor modification medical therapy as deemed appropriate and care for her pulmonary emboli. 4. Thoracic aortic aneurysm status post repair-remote The CT scan would suggest that this is stable with no acute findings 5. CAD In the past she has had non-angiographically significant CAD. She has not required repeat invasive study. 6. Hyperlipidemia He should continue risk factor evaluation care as deemed appropriate. 7. Hypertension She will continue medical management as deemed appropriate. 8. Thoracic aortic aneurysm status post repair-remote CT scan would suggest that this is stable with no acute findings Comment: The above was discussed and reviewed with the patient and her family members present. This note was generated with [employer] software. It may contain incorrect words, spelling, and punctuation that were not noted in checking the note before signing.
== END 2018-02-07 14:42 | disposition home or self-care (01) | DRG 175 ==
LOC: ED 08:53 → PCU 10:16
PROVIDERS: Internal Medicine Cardiovascular Disease; Emergency Provider Emergency Medicine; Family Provider Student in an Organized Health Care Education/Training Program; PCP Student in an Organized Health Care Education/Training Program
DX: I26.99 Other pulmonary embolism without acute cor pulmonale (principal); I21.A1 Myocardial infarction type 2; I25.10 Atherosclerotic heart disease of native coronary artery without angina pectoris; Z86.79 Personal history of other diseases of the circulatory system; E07.9 Disorder of thyroid, unspecified; Z79.899 Other long term (current) drug therapy; E78.5 Hyperlipidemia, unspecified; I10 Essential (primary) hypertension
CPT/HCPCS: 36415; 71260; 76536; 78452; 80048; 80061; 84443; 84484; 85025; 85610; 85730; 93005; 93017; 93306; 99285; A9500; Q9967; A4216; J2785

== ENCOUNTER → 2018-09-20 | Outpatient (CLI) | payer MEDICARE, OTHER, SELFPAY ==
[2018-09-02 11:18] VITALS: BMI 29.7
[2018-09-20 15:42] LABS: International Normalized Ratio 1.1; Prothrombin Time (Protime)PT. 13.8 SECONDS (11.7-14.9)
== END | disposition home or self-care (01) ==
LOC: LAB.FUTURE 13:26
PROVIDERS: Family Provider Student in an Organized Health Care Education/Training Program; PCP Student in an Organized Health Care Education/Training Program; Referring Provider Internal Medicine Cardiovascular Disease; Visit Provider Internal Medicine Cardiovascular Disease
DX: I26.99 Other pulmonary embolism without acute cor pulmonale (principal); I74.10 Embolism and thrombosis of unspecified parts of aorta; Z79.01 Long term (current) use of anticoagulants
CPT/HCPCS: 36415; 85610

== ENCOUNTER 2018-09-28 09:01 | Outpatient (RCR) | payer MEDICARE, OTHER, SELFPAY ==
[2018-09-02 11:18] VITALS: BMI 29.7
[2018-09-28 09:49] LABS: International Normalized Ratio 3.1; Prothrombin Time (Protime)PT. 32.4 SECONDS (11.7-14.9)
== END 2018-10-01 16:00 | disposition home or self-care (01) ==
LOC: LAB 09:01
PROVIDERS: Family Provider Student in an Organized Health Care Education/Training Program; PCP Student in an Organized Health Care Education/Training Program; Referring Provider Internal Medicine Cardiovascular Disease; Visit Provider Internal Medicine Cardiovascular Disease
DX: I26.99 Other pulmonary embolism without acute cor pulmonale (principal); I74.10 Embolism and thrombosis of unspecified parts of aorta; Z79.01 Long term (current) use of anticoagulants
CPT/HCPCS: 36415; 85610

== ENCOUNTER → 2018-10-04 | Outpatient (CLI) | payer MEDICARE, OTHER, SELFPAY ==
[2018-09-02 11:18] VITALS: BMI 29.7
--- NOTE | 2018-10-04 10:42 | BI_ITS ---
MAMMOGRAPHY - BILATERAL SCREENING 3-D TOMOSYNTHESIS REASON FOR EXAM: Female, 83 years old. Bilateral Screening 3-D tomosynthesis PERTINENT HISTORY: No significant family history. TECHNIQUE: 2-D mammograms and 3-D Tomosynthesis of the breast (s) were performed. CAD was performed. COMPARISON: July 31, 2016. FINDINGS: The breast composition is composed of scattered fibroglandular density. Scattered benign calcifications are seen. No dense spiculated masses or suspicious microcalcifications are identified. No architectural distortion is identified. There is no skin thickening or retraction. There has been no significant change since the prior study. BI/SCREEN MAMM (CAD) W/HELIO BILAT IMPRESSION: No mammographic signs of malignancy. Routine yearly mammograms recommended. ASSESSMENT CATEGORY: BIRADS Category 1: Negative. A letter regarding these results will be sent to the patient by the facility within 30 days. FOLLOW UP RECOMMENDATION: Yearly follow up mammogram recommended. (A) Approximately 10% of breast cancers are not detected by mammography. A normal mammogram should not delay biopsy of a clinically suspicious abnormality. Electronically Signed: Conrad Mosqueda MD at 13:26 EDT , Service support ,
== END | disposition home or self-care (01) ==
LOC: OPBI 10:37
PROVIDERS: Family Provider Student in an Organized Health Care Education/Training Program; PCP Student in an Organized Health Care Education/Training Program; Referring Provider Internal Medicine Hematology & Oncology; Visit Provider Internal Medicine Hematology & Oncology
DX: Z12.31 Encounter for screening mammogram for malignant neoplasm of breast (principal)
CPT/HCPCS: 77063; 77067

== ENCOUNTER 2018-10-29 13:21 | Outpatient (RCR) | payer MEDICARE, OTHER, SELFPAY ==
[2018-09-02 11:18] VITALS: BMI 29.7
[2018-10-07 11:59] LABS: Prothrombin Time (Protime)PT. 49.4 SECONDS (11.7-14.9)
[2018-10-07 12:06] LABS: International Normalized Ratio 5.3
[2018-10-09 14:10] LABS: International Normalized Ratio 2.9; Prothrombin Time (Protime)PT. 30.5 SECONDS (11.7-14.9)
[2018-10-16 16:45] LABS: International Normalized Ratio 2.8
[2018-10-29 14:04] LABS: International Normalized Ratio 2.3; Prothrombin Time (Protime)PT. 24.9 SECONDS (11.7-14.9)
== END 2018-10-29 14:21 | disposition home or self-care (01) ==
LOC: LAB 13:21
PROVIDERS: Family Provider Student in an Organized Health Care Education/Training Program; PCP Student in an Organized Health Care Education/Training Program; Referring Provider Internal Medicine Cardiovascular Disease; Visit Provider Internal Medicine Cardiovascular Disease
DX: I26.99 Other pulmonary embolism without acute cor pulmonale (principal); I74.10 Embolism and thrombosis of unspecified parts of aorta; Z79.01 Long term (current) use of anticoagulants
CPT/HCPCS: 36415; 85610

== ENCOUNTER 2018-11-11 15:59 | Outpatient (RCR) | payer MEDICARE, OTHER, SELFPAY ==
[2018-09-02 11:18] VITALS: BMI 29.7
[2018-11-04 13:48] VITALS: BMI 30.3
[2018-11-11 17:03] LABS: International Normalized Ratio 2.3; Prothrombin Time (Protime)PT. 25.7 SECONDS (11.7-14.9)
== END 2018-11-11 16:00 | disposition home or self-care (01) ==
LOC: LAB 15:59
PROVIDERS: Family Provider Student in an Organized Health Care Education/Training Program; PCP Student in an Organized Health Care Education/Training Program; Referring Provider Internal Medicine Cardiovascular Disease; Visit Provider Internal Medicine Cardiovascular Disease
DX: I26.99 Other pulmonary embolism without acute cor pulmonale (principal); I74.10 Embolism and thrombosis of unspecified parts of aorta; Z79.01 Long term (current) use of anticoagulants
CPT/HCPCS: 36415; 85610

== ENCOUNTER 2018-12-17 11:53 | Outpatient (RCR) | payer MEDICARE, OTHER, SELFPAY ==
[2018-11-26 12:49] VITALS: BMI 30.2
[2018-12-17 12:37] LABS: International Normalized Ratio 1.8; Prothrombin Time (Protime)PT. 21.1 SECONDS (11.7-14.9)
== END 2019-01-01 06:19 | disposition home or self-care (01) ==
LOC: LAB 11:53
PROVIDERS: Family Provider Student in an Organized Health Care Education/Training Program; PCP Student in an Organized Health Care Education/Training Program; Referring Provider Internal Medicine Cardiovascular Disease; Visit Provider Internal Medicine Cardiovascular Disease
DX: I26.99 Other pulmonary embolism without acute cor pulmonale (principal); I74.10 Embolism and thrombosis of unspecified parts of aorta; Z79.01 Long term (current) use of anticoagulants
CPT/HCPCS: 36415; 85610

== ENCOUNTER → 2018-12-17 | Outpatient (CLI) | payer MEDICARE, OTHER, SELFPAY ==
[2018-11-26 12:49] VITALS: BMI 30.2
--- NOTE | 2018-12-17 10:39 | CDU_ITS ---
Reason For Study: dizziness, TIA Rt. Velocities/BP Lt. Velocities/BP Prox CCA 61.7/14.7 cm/sec. Prox CCA 81.4/19.5 cm/sec. Mid CCA 60.4/14.7 cm/sec. Mid CCA 67.4/19.5. cm/sec. Dist CCA 63.0/14.7 cm/sec. Dist CCA 68.3/19.5 cm/sec. Prox ICA 57.8/14.7 cm/sec. Prox ICA 65.5/20.1 cm/sec. Mid ICA 73.4/23.9 cm/sec. Mid ICA 77.8/24.8 cm/sec. Dist ICA 83.8/21.3. cm/sec. Dist ICA 72.9/24.5 cm/sec. Rt. ICA/CCA = 1.4. Lt. ICA/CCA = 1.2. Prox ECA 90.4/10.8 cm/sec. Prox ECA 74.0/10.4 cm/sec. Rt. Vert. 30.8/8.1 cm/sec. Lt. Vert. 46.5/12.4 cm/sec. Right Extracranial There is homogeneous, smooth atherosclerotic plaque noted in the right common carotid artery. There is heterogeneous, irregular atherosclerotic plaque noted in the right internal carotid artery. There is homogeneous, smooth atherosclerotic plaque noted in the right external carotid artery. Antegrade flow is noted in the right vertebral artery. Left Extracranial There is homogeneous, smooth atherosclerotic plaque noted in the left common carotid artery. There is heterogeneous, irregular atherosclerotic plaque noted in the left internal carotid artery. There is intimal thickening but no significant atherosclerotic plaque noted in the left external carotid artery. Antegrade flow is noted in the left vertebral artery. Procedure Carotid Duplex [id number]. The exam was diagnostic. Exam performed in department. Interpretation Summary Minimal irregular plague at the proximal right internal carotid with <50% stenosis Smooth plague at the proximal right external carotid with <50% stenosis Minimal irregular plague at the proximal left internal carotid with <50% stenosis. Intimal thickening of the proximal left external carotid with <50% stenosis. Patent and antegrade bilateral vertebrals. Ordering Physician: Jamal Elena Performed By: Prieto Murrell RVT
== END | disposition home or self-care (01) ==
LOC: CVS 10:37
PROVIDERS: Family Provider Student in an Organized Health Care Education/Training Program; PCP Student in an Organized Health Care Education/Training Program; Referring Provider Nurse Practitioner Family; Visit Provider Nurse Practitioner Family
DX: I65.22 Occlusion and stenosis of left carotid artery (principal); R42 Dizziness and giddiness; I26.99 Other pulmonary embolism without acute cor pulmonale; I74.10 Embolism and thrombosis of unspecified parts of aorta; Z79.01 Long term (current) use of anticoagulants
CPT/HCPCS: 36415; 85610; 93880

== ENCOUNTER 2019-01-10 13:47 | Outpatient (RCR) | payer MEDICARE, OTHER, SELFPAY ==
[2018-11-26 12:49] VITALS: BMI 30.2
[2019-01-10 14:52] LABS: International Normalized Ratio 3.3; Prothrombin Time (Protime)PT. 34.1 SECONDS (11.7-14.9)
== END 2019-01-10 16:00 | disposition home or self-care (01) ==
LOC: LAB 13:47
PROVIDERS: Family Provider Student in an Organized Health Care Education/Training Program; PCP Student in an Organized Health Care Education/Training Program; Referring Provider Internal Medicine Cardiovascular Disease; Visit Provider Internal Medicine Cardiovascular Disease
DX: I26.99 Other pulmonary embolism without acute cor pulmonale (principal); I74.10 Embolism and thrombosis of unspecified parts of aorta; Z79.01 Long term (current) use of anticoagulants
CPT/HCPCS: 36415; 85610

== ENCOUNTER 2019-02-10 16:48 | Outpatient (RCR) | payer MEDICARE, OTHER, SELFPAY ==
[2018-11-26 12:49] VITALS: BMI 30.2
[2019-02-10 17:26] LABS: International Normalized Ratio 2.8; Prothrombin Time (Protime)PT. 29.7 SECONDS (11.7-14.9)
== END 2019-02-10 18:00 | disposition home or self-care (01) ==
LOC: LAB 16:48
PROVIDERS: Family Provider Student in an Organized Health Care Education/Training Program; PCP Student in an Organized Health Care Education/Training Program; Referring Provider Internal Medicine Cardiovascular Disease; Visit Provider Internal Medicine Cardiovascular Disease
DX: I26.99 Other pulmonary embolism without acute cor pulmonale (principal); I74.10 Embolism and thrombosis of unspecified parts of aorta; Z79.01 Long term (current) use of anticoagulants
CPT/HCPCS: 36415; 85610

== ENCOUNTER 2019-03-07 11:49 | Outpatient (RCR) | payer MEDICARE, OTHER, SELFPAY ==
[2018-11-26 12:49] VITALS: BMI 30.2
[2019-03-07 13:03] LABS: International Normalized Ratio 2.8; Prothrombin Time (Protime)PT. 29.4 SECONDS (11.7-14.9)
== END 2019-03-07 18:00 | disposition home or self-care (01) ==
LOC: LAB 11:49
PROVIDERS: Family Provider Student in an Organized Health Care Education/Training Program; PCP Student in an Organized Health Care Education/Training Program; Referring Provider Internal Medicine Cardiovascular Disease; Visit Provider Internal Medicine Cardiovascular Disease
DX: I26.99 Other pulmonary embolism without acute cor pulmonale (principal); I74.10 Embolism and thrombosis of unspecified parts of aorta; Z79.01 Long term (current) use of anticoagulants
CPT/HCPCS: 36415; 85610

== ENCOUNTER 2019-04-07 09:08 | Outpatient (RCR) | payer MEDICARE, OTHER, SELFPAY ==
[2019-03-24 10:50] VITALS: BMI 30.2
[2019-04-07 10:44] LABS: International Normalized Ratio 2.7; Prothrombin Time (Protime)PT. 28.8 SECONDS (11.7-14.9)
[2019-04-07 11:04] LABS: AST(SGOT) 22 U/L (15-37); Alanine Aminotransfer ALT/SGPT 20 U/L (13-56); Albumin, Serum 3.6 g/dL (3.2-5.0); Alkaline Phosphatase 75 U/L (45-117); Bilirubin, Direct 0.09 mg/dL (0.00-0.30); Cholesterol 257 mg/dL (200); Globulin 3.6 g/dL (2.2-4.2); High Density Lipoprotein 41 mg/dL; Protein, Total 7.2 g/dL (6.4-8.2); Triglycerides 163 mg/dL; Very Low Density Lipoprotein 33 mg/dL (5-40)
== END 2019-04-07 18:00 | disposition home or self-care (01) ==
LOC: LAB 09:08
PROVIDERS: Family Provider Student in an Organized Health Care Education/Training Program; PCP Student in an Organized Health Care Education/Training Program; Referring Provider Internal Medicine Cardiovascular Disease; Visit Provider Internal Medicine Cardiovascular Disease
DX: E78.00 Pure hypercholesterolemia, unspecified (principal); Z79.01 Long term (current) use of anticoagulants; Z86.711 Personal history of pulmonary embolism; Z86.718 Personal history of other venous thrombosis and embolism
CPT/HCPCS: 36415; 80061; 80076; 85610

== ENCOUNTER 2019-05-30 15:01 | Outpatient (RCR) | payer MEDICARE, OTHER, SELFPAY ==
[2019-03-24 10:50] VITALS: BMI 30.2
[2019-05-22 15:56] LABS: International Normalized Ratio 3.2; Prothrombin Time (Protime)PT. 32.9 SECONDS (11.7-14.9)
[2019-05-30 15:53] LABS: International Normalized Ratio 2.9; Prothrombin Time (Protime)PT. 30.5 SECONDS (11.7-14.9)
== END 2019-05-30 18:00 | disposition home or self-care (01) ==
LOC: LAB 15:01
PROVIDERS: Family Provider Student in an Organized Health Care Education/Training Program; PCP Student in an Organized Health Care Education/Training Program; Referring Provider Internal Medicine Cardiovascular Disease; Visit Provider Internal Medicine Cardiovascular Disease
DX: I26.99 Other pulmonary embolism without acute cor pulmonale (principal); I74.10 Embolism and thrombosis of unspecified parts of aorta; Z79.01 Long term (current) use of anticoagulants
CPT/HCPCS: 36415; 85610

== ENCOUNTER → 2019-10-07 | Outpatient (CLI) | payer MEDICARE, OTHER, SELFPAY ==
[2019-03-24 10:50] VITALS: BMI 30.2
[2019-10-01 13:59] VITALS: BMI 30.2
--- NOTE | 2019-10-07 10:11 | BI_ITS ---
MAMMOGRAPHY - BILATERAL SCREENING REASON FOR EXAM: Female, 84 years old. Routine annual screening examination. PERTINENT HISTORY: Non-contributory. Remote left excisional breast biopsy. TECHNIQUE: Digital bilateral breast helio (3D mammographic acquisition) in the CC and MLO projections. 2-D mediolateral oblique (MLO) and craniocaudad (CC) views of both breasts were obtained. CAD: Full Field Digital Mammography with Computer Added Detection was performed. COMPARISON: Comparison is made with prior study dated October 04, 2018. FINDINGS: Breast Composition: There are scattered areas of fibroglandular density. There are no dominant masses or suspicious calcifications. No other significant abnormalities are identified. There has been no significant change since the prior study. BI/SCREEN MAMM (CAD) W/HELIO BILAT IMPRESSION: Stable bilateral screening mammogram. Yearly follow-up mammogram recommended. (A) ASSESSMENT CATEGORY: BIRADS Category 1: Negative. A letter regarding these results will be sent to the patient by the facility within 30 days. Approximately 10% of breast cancers are not detected by mammography. A normal mammogram should not delay biopsy of a clinically suspicious abnormality. [id number] Electronically Signed: Compa Roach, at 12:05 EDT , Service support ,
== END | disposition home or self-care (01) ==
LOC: OPBI 10:11
PROVIDERS: PCP Student in an Organized Health Care Education/Training Program; Visit Provider Internal Medicine Hematology & Oncology
DX: Z12.31 Encounter for screening mammogram for malignant neoplasm of breast (principal)
CPT/HCPCS: 77063; 77067

== ENCOUNTER 2019-11-04 13:21 | Outpatient (RCR) | payer MEDICARE, OTHER, SELFPAY ==
[2019-03-24 10:50] VITALS: BMI 30.2
[2019-10-13 12:56] VITALS: BMI 28.5
[2019-11-04 13:57] LABS: Prothrombin Time (Protime)PT. 22.1 SECONDS (11.7-14.9)
[2019-11-04 14:13] LABS: AST(SGOT) 23 U/L (15-37); Alanine Aminotransfer ALT/SGPT 22 U/L (13-56); Albumin, Serum 3.6 g/dL (3.2-5.0); Alkaline Phosphatase 70 U/L (45-117); Bilirubin, Direct 0.14 mg/dL (0.00-0.30); Cholesterol 171 mg/dL (200); Globulin 3.5 g/dL (2.2-4.2); High Density Lipoprotein 39 mg/dL; Protein, Total 7.1 g/dL (6.4-8.2); Triglycerides 138 mg/dL; Very Low Density Lipoprotein 28 mg/dL (5-40)
== END 2019-11-04 18:00 | disposition home or self-care (01) ==
LOC: LAB 13:21
PROVIDERS: Family Provider Student in an Organized Health Care Education/Training Program; PCP Student in an Organized Health Care Education/Training Program; Referring Provider Internal Medicine Cardiovascular Disease; Visit Provider Internal Medicine Cardiovascular Disease
DX: I74.10 Embolism and thrombosis of unspecified parts of aorta (principal); Z79.01 Long term (current) use of anticoagulants
CPT/HCPCS: 36415; 80061; 80076; 85610

== ENCOUNTER 2019-12-04 18:05 | Observation (INO) | payer MEDICARE, OTHER, SELFPAY ==
[2019-10-13 12:56] VITALS: BMI 28.5
[2019-12-04] VITALS (8 sets, daily range): BP systolic 138–154; BP diastolic 61–98; PULSE 62–73; RESP 15–18; TEMP 36.5–36.9; O2SAT 97–99; BMI 28.8; BMI 28.6; BMI 28.7
--- NOTE | 2019-12-04 18:25 | EKG12_ITS ---
Test Reason : CP Blood Pressure : / mmHG Vent. Rate : 072 BPM Atrial Rate : 072 BPM P-R Int : 134 ms QRS Dur : 084 ms QT Int : 396 ms P-R-T Axes : -13 053 065 degrees QTc Int : 433 ms Normal sinus rhythm Nonspecific ST and T wave abnormality Abnormal ECG Confirmed by SABINE ORTIZ ([id number]), makeup editor LEANDRO BARCENAS ([id number]) on 12/08/2019 2:20:22 PM Referred By: KATERIN/TL Confirmed By:SABINE ORTIZ
--- NOTE | 2019-12-04 19:00 | RAD_ITS ---
STUDY: X-RAY - RIGHT SHOULDER REASON FOR EXAM: Female, 84 years old. FALL ONE MONTH AGO WITH EXTENSIVE BRUISING. PT STATES PAIN IN RIGHT SHOULDER WELL PAIN IN CHEST, UNSURE IF RELATED TO FALL. HX OF RT SHOULDER DISLOCATION. TECHNIQUE: 3 view(s) of the shoulder. COMPARISON: July 20, 2010 FINDINGS: The right shoulder is intact and located with chronic healed deformity of the right humeral head. Mineralization is diffusely decreased. Visualized upper ribs are intact. RAD/Shoulder min 2 Views IMPRESSION: No acute osseous injury. Remote healed trauma of the humeral head. Osteoporosis. Electronically Signed: Mitchell Gold, at 19:33 EDT Tel , Service support ,
--- NOTE | 2019-12-04 19:00 | RAD_ITS ---
STUDY: X-RAY CHEST REASON FOR EXAM: Female, 84 years old. FALL ONE MONTH AGO WITH EXTENSIVE BRUISING. PT STATES PAIN IN RIGHT SHOULDER WELL PAIN IN CHEST, UNSURE IF RELATED TO FALL. TECHNIQUE: Frontal view of the chest COMPARISON: February 06, 2018 FINDINGS: Sternotomy wires and coronary bypass clips are present. The lungs are clear and expanded. There is no demonstrated pleural abnormality. Normal size heart. Normal mediastinum and jonatan. Normal visualized pulmonary arteries. Normal visualized aortic arch and descending thoracic aorta. Normal visualized thoracic spine. Normal visualized ribs, clavicles, and shoulders. There is no demonstrated abnormality of the visualized soft tissue structures of the upper abdomen. RAD/Chest 1 View (Portable) IMPRESSION: Normal x-ray examination of the chest. Electronically Signed: Mitchell Gold, at 19:32 EDT Tel , Service support ,
[2019-12-04 19:06] LABS: Absolute Lymphocyte Count 1.43 X10^3/uL (0.83-4.51); Absolute Neutrophil Count 3.1 X10^3/uL (2.0-7.7); Basophil# 0.03 X10^3/uL; Basophil% 0.6 % (0-1); Eosinophil# 0.29 X10^3/uL; Eosinophils% 5.4 % (0-5); Hemoglobin 10.9 g/dL (12.0-15.0); Lymphocyte # 1.43 X10^3/ul (4.0); Lymphocyte % 26.7 % (19-41); Mean Corp Hgb Conc 32.1 g/dL (32-36); Mean Corpuscular Hgb 29.7 pg (27.0-32.0); Mean Corpuscular Volume 92.6 fL (81-99); Mean Platelet Vol. 9.8 fl (6.2-12.0); Monocyte# 0.45 X10^3/uL; Monocyte% 8.4 % (0-10); NRBC Flagged by Analyzer 0 % (0-5); Neutrophil # 3.13 X10^3/uL (2.7-7.7); Neutrophil % 58.5 % (47-70); Platelet Count 196 K/mm3 (150-450); RBC Distribution Width CV 13.1 % (11.6-14.6); RBC Distribution Width SD 44.2 fl (35.1-43.9); Red Blood Count 3.67 M/mm3 (4.2-5.4); White Blood Count 5.4 K/mm3 (4.4-11.0)
[2019-12-04 19:21] LABS: International Normalized Ratio 1.9; Prothrombin Time (Protime)PT. 20.8 SECONDS (11.7-14.9)
[2019-12-04 19:30] LABS: Anion Gap 1 (5-15); BUN 27 mg/dL (7-18); Calcium,Total 8.8 mg/dL (8.5-10.1); Chloride 109 mmol/L (98-107); Creatinine, Serum 1.23 mg/dL (0.55-1.02); EST Glomerular Filtration Rate 44 mL/min (>60); Est Glom Filt Rate - Afr Amer 54 mL/min (>60); Estimated Creatinine Clearance 27.89 ml/min; Glucose 102 mg/dL (74-106); Potassium 4.3 mmol/L (3.5-5.1); Sodium Level 141 mmol/L (136-145)
--- NOTE | 2019-12-04 19:56 | HP.PCM_ITS ---
Problem List (1) Chest pain Status: Acute (2) Elevated troponin Status: Acute (3) Contusion of right shoulder Status: Acute (4) History of thoracic aortic aneurysm repair Status: Chronic Comment: Graft wrapping of the distal aortic suture line with the graft being 33mm tube graft 06/22/06 (5) Essential hypertension Status: Chronic (6) penitentiary current use of anticoagulant Status: Chronic (7) Pulmonary emboli Status: Chronic Qualifiers: Pulmonary embolism type: unspecified Chronicity: unspecified Acute cor pulmonale presence: without acute cor pulmonale Qualified Code(s): I26.99 - Other pulmonary embolism without acute cor pulmonale (8) Thyroid nodule Status: Chronic (9) Aortic mural thrombus Status: Chronic (10) Hyperlipidemia Status: Chronic Qualifiers: Hyperlipidemia type: unspecified Qualified Code(s): E78.5 - Hyperlipidemia, unspecified (11) 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 (13) Type 1 diabetes mellitus without complications Status: Chronic (14) Nonspecific abnormal unspecified cardiovascular function study Status: Chronic (15) Palpitations Status: Chronic (16) Atrial premature depolarization Status: Chronic (17) Ventricular premature depolarization Status: Chronic History of Present Illness Date of Admission: 12/04/19 Chief Complaint: chest pain The patient is a 84 year old F with a significant history of aortic aneurysm status post repair; aortic mural thrombosis; pulmonary embolism; and thrombus in neck vessel who presents to emergency department with 2 weeks of episodic chest pain at night. She describes her pain as twitches and sharp. The pain lasts for about 2 seconds. She has about 2 episodes of this chest pain per nights. She denies any aggravating or ameliorating factors to the pain. The pain severity is 4 out of 10. She denies any associated nausea, vomiting, shortness of breath or diaphoresis. The last time she had this pain was the night before presentation. Patient was supposed to follow-up with a PCP because of pain in her right shoulder from a fall. Patient mentioned chest pain to her PCP and patient was instructed to come to the emergency department. In regard to her right shoulder pain, patient reports falling about a month ago and thereafter developing pain in her right shoulder. The pain at her right shoulder began about a week after her fall. She described the right shoulder pain as of severity 5 out of 10. The pain is dull and it radiates to her right neck. The shoulder pain and neck pain pain does not increase in intensity when she is having her chest pain. Past Medical History Past Medical History (Chronic Problems): Chronic Problems (Last Reviewed 12/04/19 @ 20:[address] Joni Slater MD) History of thoracic aortic aneurysm repair (Chronic ~06/22/06) Graft wrapping of the distal aortic suture line with the graft being 33mm tube graft 06/22/06 Essential hypertension (Chronic) penitentiary current use of anticoagulant (Chronic) Pulmonary emboli (Chronic) Thyroid nodule (Chronic) Aortic mural thrombus (Chronic) Hyperlipidemia (Chronic) Atherosclerotic heart disease of teller coronary artery without angina pectoris (Chronic) penitentiary use of drug (Chronic) Type 1 diabetes mellitus without complications (Chronic) Nonspecific abnormal unspecified cardiovascular function study (Chronic) Palpitations (Chronic) Atrial premature depolarization (Chronic) Ventricular premature depolarization (Chronic) Medical History: Medical History (Last Reviewed 12/04/19 @ 21:[address] Joni Slater MD) Essential hypertension (Chronic) I10 Old myocardial infarction (Inactive) I25.2 penitentiary current use of anticoagulant (Chronic) Z79.01 Pulmonary emboli (Chronic) I26.99 Thyroid nodule (Chronic) E04.1 Aortic mural thrombus (Chronic) I74.10 Hyperlipidemia (Chronic) E78.5 Atherosclerotic heart disease of teller coronary artery without angina pectoris (Chronic) I25.10 penitentiary use of drug (Chronic) Z79.899 Type 1 diabetes mellitus without complications (Chronic) E10.9 Nonspecific abnormal unspecified cardiovascular function study (Chronic) R94.30 Palpitations (Chronic) R00.2 Atrial premature depolarization (Chronic) I49.1 Ventricular premature depolarization (Chronic) I49.3 Dizziness and giddiness R42 NSTEMI (non-ST elevated myocardial infarction) I21.4 Precordial chest pain R07.2 Abnormal cardiac enzyme level R74.8 Allergies paroxetine HCl [From Paxil] Adverse Reaction (Mild, Verified 12/04/19 18:09) Nausea rosuvastatin calcium [From Crestor] Adverse Reaction (Mild, Verified 12/04/19 18:09) Nausea simvastatin [From Zocor] Adverse Reaction (Mild, Verified 12/04/19 18:09) Nausea Home Medications: Ambulatory Orders Medication Instructions Recorded Aspirin [Aspirin, Baby] 81 mg PO DAILY@0800 10/01/14 Calcium Carbonate [Calcium] 600 mg PO DAILY 09/02/18 Multivitamin [One Daily 1 ea PO DAILY 09/02/18 Multivitamin] traMADol [Ultram (G)] 50 mg PO Q6H PRN PRN 09/02/18 metoprolol succinate 50 mg 50 mg PO BID 11/04/18 tablet,extended release 24 hr lisinopril 20 mg tablet 20 mg PO BID #180 tab 03/24/19 pravastatin 20 mg tablet 20 mg PO DAILY #90 tab 08/25/19 warfarin 4 mg tablet 4 mg PO DAILY #90 tab 10/02/19 Surgical History: Surgical History (Last Reviewed 12/04/19 @ 21:[address] Joni Slater MD) History of thoracic aortic aneurysm repair (Chronic) Onset Date: ~06/22/06 Z98.890, Z86.79 Graft wrapping of the distal aortic suture line with the graft being 33mm tube graft 06/22/06 History of bladder suspension procedure Z98.890, Z87.448 History of hernia repair Z98.890, Z87.19 History of partial hysterectomy Z90.711 Smoking Status: Never smoker - *Family History Maternal Family History: Family History (Last Reviewed 12/04/19 @ 20:[address] Joni Slater MD) Brother Heart disease Father Myocardial infarction Other Clotting disorder Review of Systems Constitutional: Denies: Chills, Fever, Weight Change HEENT: Denies: Head Aches, Sinus Congestion, Sinus Drainage Cardiovascular: Reports: Chest Pain. Denies: Palpitations Respiratory: Denies: Cough, Shortness of breath at rest, Sputum production Gastrointestinal: Denies: Abdominal Pain, Nausea, Vomiting Genitourinary: Denies: Dysuria Musculoskeletal: Reports: Neck Pain, Shoulder Pain. Denies: Joint Pain, Joint Tenderness Skin: Denies: Rash, Wounds Neurological: Denies: Numbness, Tingling, Focal weakness Psychiatric: Denies: Anxiety, Depression, Homicidal Ideations, Suicidal Ideations Hematologic/ Lymphatic: Denies: Easy Bruising, Easy Bleeding VTE Information - Inpt Only VTE Present on Admission: No VTE Mechan Device Prophylaxis: None VTE Pharm Prophylaxis ordered?: No Reason prophylaxis not ordered:: Treatment Not Indicated - On home Coumadin for multiple emboli. Started on heparin drip inpatient. Patient Problems: Active and Suspected Problems (Last Reviewed 12/04/19 @ 20:[address] Joni Slater MD) Chest pain (Acute) Elevated troponin (Acute) Contusion of right shoulder (Acute) - Physical Exam Vitals/I&O's: Vital Signs Temp Pulse Resp BP Pulse Ox 97.7 F L 73 18 148/78 H 97 12/04/19 18:07 12/04/19 18:07 12/04/19 18:07 12/04/19 18:07 12/04/19 18:07 Oxygen Flow Rate (L/min) 99 Oxygen Delivery Method Room Air Weight: 71.6 kg Body Mass Index (BMI) 28.8 General: Alert, Oriented x3, Cooperative HEENT: Atraumatic, PERRLA, EOMI, Normocephalic Neck: Supple, No JVD, Negative Carotid Bruits Lungs: Clear to auscultation, Normal air movement, No rhonchi, No wheeze, No rales Cardiovascular: Regular rate, Regular Rhythm, Normal S1, Normal S2, No murmurs Abdomen: Bowel Sounds Present, Soft, Non Tender Extremities: No edema, Capillary Refill Less than 3 Seconds, - - Strength in right upper extremity 4 out of 5. Strength in left upper extremity 5 out of 5. Skin: No rashes, No breakdown Musculoskeletal: No Tenderness to Palpation of Joints or Extremities Neurological: Cranial nerves II-XII grossly intact Psych/Mental Status: Normal Affect, Appropriate Laboratory Results 12/04/19 18:43: WBC 5.4, RBC 3.67 L, Hgb 10.9 L, Hct 34.0 L, MCV 92.6, MCH 29.7, MCHC 32.1, RDW Std Deviation 44.2 H, RDW Coeff of Beena 13.1, Plt Count 196, MPV 9.8, Immature Gran % (Auto) 0.400, Neut % (Auto) 58.5, Lymph % (Auto) 26.7, [place] % (Auto) 8.4, Eos % (Auto) 5.4 H, Baso % (Auto) 0.6, Absolute Neuts (auto) 3.1, Absolute Lymphs (auto) 1.43, Nucleated RBC % 0 12/04/19 18:43: Sodium 141, Potassium 4.3, Chloride 109 H, Carbon Dioxide 31.0, Anion Gap 1 L, BUN 27 H, Creatinine 1.23 H, Estim Creat Clear Calc 27.89, Est GFR (MDRD) Af Amer 54 L, Est GFR (MDRD) Non-Af 44 L, BUN/Creatinine Ratio 22.0 H , Glucose 102, Calcium 8.8, Troponin I 0.051 H 12/04/19 18:43: PT 20.8 H, INR 1.9 Assessment/Plan All Active Problems (Last Reviewed 12/04/19 @ 20:[address] Joni Slater MD) Chest pain (Acute) Elevated troponin (Acute) Contusion of right shoulder (Acute) The patient is a 84 year old F with a significant history of aortic aneurysm status post repair; aortic mural thrombosis; pulmonary embolism; and thrombus in neck vessel who presents to emergency department with 2 weeks of episodic chest pain at night. Chest pain Insert chest pain admission Place on a monitored bed at PCU Actual CXR image was independently visualized. No acute cardiopulmonary process was noted. Actual EKG tracing was independently visualized. EKG tracing was nonrevealing. Received aspirin 324 mg at emergency department. Daily baby aspirin continued. SL NTG 0.4 mg prn as needed for chest pain ordered Will check lipid panel. Initial cardiac enzymes was unremarkable. Serial cardiac enzymes ordered Stat EKG as needed for chest pain Stress test in the AM if the cardiac enzymes is stable In the setting of being on warfarin for history of multiple embolism and subtherapeutic INR will start patient on heparin drip. Review of old records shows that patient was admitted on 02/06/2018 and discharged on 02/07/2018. At that time patient had acute pulmonary emboli and found to have elevated troponin. Cardiac work-up was unremarkable. Elevated troponin was attributed to acute pulmonary emboli. Hypertension On presentation blood pressure was stable in regard to her age. Lisinopril and metoprolol continued Trend blood pressure and adjust blood pressure medications. PE/aortic mural thrombus/neck vein thrombus Patient on home warfarin. INR is subtherapeutic at 1.9. Hold warfarin for chest pain work-up. Start patient on heparin drip. Trend INR Right shoulder pain Shoulder x-ray showed remote healed trauma of the humeral head. Exercise with PT and OT while inpatient; and outpatient. Continue home tramadol. DVT prophylaxis Patient has been placed on heparin drip for history of PE and subtherapeutic INR. Coumadin on hold at this time. OBSV E&M: [id number] Initial observation care L3
[2019-12-04] MEDS: Aspirin 81 MG TAB.CHEW 324 MG PO (20:02)
--- NOTE | 2019-12-04 20:16 | ED.VIS.GEN ---
History of Present Illness Chief Complaint: Chest Pain Informant: Patient Onset: Weeks Narrative: Patient presents after discussing with her PCP today to come in ED for evaluation of intermittent chest pains for the past 2 weeks. States symptoms be sharp in nature when she gets ready for bed however goes away. No dyspnea. No cough. No history of NC. Stress test years ago. History of hypertension hypercholesterolemia. Denies tobacco history. No history of heart cath. Reports had a fall about a month ago there was significant right shoulder bruising that is improving however still mild pain in the right shoulder. She is on warfarin for history of PEs in the past. Denies head injury, denies any headache since the fall. She does not ambulate with any assistance. She lives at a nursing home. No nausea or vomiting. No lower extremity pain. No back or abdominal pain. Past Medical History - Allergies and Home Meds Allergies/Adverse Reactions: Allergies paroxetine HCl [From Paxil] Adverse Reaction (Mild, Verified 12/04/19 18:09) Nausea rosuvastatin calcium [From Crestor] Adverse Reaction (Mild, Verified 12/04/19 18:09) Nausea simvastatin [From Zocor] Adverse Reaction (Mild, Verified 12/04/19 18:09) Nausea Past Medical History: - - Hypertension, hyperlipidemia, PE Smoking Status: Never smoker Review of Systems General: Denies: Chills, Fever, Sweats Eyes: Denies: Visual changes - bilaterally, Diplopia ENT: Denies: Rhinorrhea, Sore throat Cardiovascular: Reports: Chest pain. Denies: Palpitations Respiratory: Denies: Dyspnea, Cough, Dyspnea on exertion Gastrointestinal: Denies: Abdominal pain, Nausea, Vomiting, Diarrhea, Melena, Hematochezia Genitourinary: Denies: Dysuria, Hematuria, Frequency Musculoskeletal: Reports: Arthralgias. Denies: Back pain, Extremity Pain Skin: Denies: Rash, Wounds Neurological: Denies: Headache, Weakness, Numbness Physical Exam Vital Signs/Narrative: Vital Signs Temp Pulse Resp BP Pulse Ox 12/04/19 20:02 66 15 138/61 H 97 12/04/19 18:07 97.7 F L 73 18 148/78 H 97 General: Well nourished, Well developed, No Acute Distress Head: Normocephalic, Atraumatic Eyes: Perrl, EOMI ENT: Moist mucous membranes, No rhinorrhea Neck: Supple, Nontender Cardiovascular: Regular rate, Regular rhythm, No murmurs Respiratory: No distress, CTA bilaterally, Chest nontender Abdomen: Soft, Nontender, Nondistended, Normal bowel sounds Back: Nontender, Normal Inspection Extremities: No edema, - - Right upper extremity mild pain proximal shoulder with no deformities. There is some healing ecchymosis arm and forearm, skin intact. No erythema. Neurovascular intact distally. Skin: No rash, - - See above Neurological: Alert, Oriented x3, Cranial nerves II-XII grossly intact, Normal Strength, Normal Sensation Psychological: Normal affect, Normal Mood Diagnostic/Tx/Re-eval Clinical Impression(s) from Imaging Studies Chest X-Ray 12/04/19 19:00 IMPRESSION: Normal x-ray examination of the chest. Electronically Signed: Mitchell Gold, at 19:32 EDT Tel , Service support , Shoulder X-Ray 12/04/19 19:00 IMPRESSION: No acute osseous injury. Remote healed trauma of the humeral head. Osteoporosis. Electronically Signed: Mitchell Gold, at 19:33 EDT Tel , Service support , Abnormal Lab Results 12/04/19 12/04/19 12/04/19 18:43 18:43 18:43 WBC 5.4 RBC 3.67 L Hgb 10.9 L Hct 34.0 L MCV 92.6 MCH 29.7 MCHC 32.1 RDW Std Deviation 44.2 H RDW Coeff of Beena 13.1 Plt Count 196 MPV 9.8 Immature Gran % (Auto) 0.400 Neut % (Auto) 58.5 Lymph % (Auto) 26.7 [place] % (Auto) 8.4 Eos % (Auto) 5.4 H Baso % (Auto) 0.6 Absolute Neuts (auto) 3.1 Absolute Lymphs (auto) 1.43 Nucleated RBC % 0 PT 20.8 H INR 1.9 Sodium 141 Potassium 4.3 Chloride 109 H Carbon Dioxide 31.0 Anion Gap 1 L BUN 27 H Creatinine 1.23 H Estim Creat Clear Calc 27.89 Est GFR (MDRD) Af Amer 54 L Est GFR (MDRD) Non-Af 44 L BUN/Creatinine Ratio 22.0 H Glucose 102 Calcium 8.8 Troponin I 0.051 H - EKG Initial EKG Interpretation: Sinus Rhythm - Sinus rate of 72, no ST or T wave changes. - Medical Decision Making EKG normal, patient currently symptom-free/symptoms was last evening. She is on warfarin, cardiac work-up normal chest x-ray, however troponin returned at 0.051. She remained symptom-free. Right shoulder x-ray due to injury shows remote fracture that is healed. INR at 1.9. Patient heart score is a 5. Discussed with hospitalist for admission. ED Disposition - Plan for ED Patient: Disposition: Acute Care [facility] Diagnosis: Chest pain, Elevated troponin, Contusion of right shoulder
--- NOTE | 2019-12-04 20:32 | EKG12_ITS ---
Test Reason : CP ADMISSION Blood Pressure : / mmHG Vent. Rate : 066 BPM Atrial Rate : 066 BPM P-R Int : 150 ms QRS Dur : 078 ms QT Int : 416 ms P-R-T Axes : 000 057 068 degrees QTc Int : 436 ms Normal sinus rhythm Confirmed by RISA NEWMAN, KINGS ([id number]), writer editor LISBETH PATEL ([id number]) on 12/10/2019 10:42:34 AM Referred By: SUMAN Confirmed By:KINGS LORD MD
[2019-12-04 21:34] LABS: Partial Thromboplast Time 35.5 Seconds (24.1-36.2)
[2019-12-04] MEDS: HEPARIN/D5w 25,000 UNITS 25,000 UNITS/250 ML IV.SOLN. 11 UNITS IV (22:10)
[2019-12-04] MEDS: Heparin Injection (Vial) 5,000 UNIT/ML VIAL 5000 UNIT IV (22:10)
[2019-12-04] MEDS: Metoprolol(XL)Succ 50 MG Tablet PO (22:16)
[2019-12-04] MEDS: Lisinopril 20 MG Tablet PO (22:17)
[2019-12-04] MEDS: Pravastatin 20 MG Tablet PO (22:17)
[2019-12-05 02:58] VITALS: PULSE 55
[2019-12-05 04:02] VITALS: BP 131/63; PULSE 57; RESP 17; TEMP 36.4; O2SAT 98
[2019-12-05 04:35] LABS: Absolute Lymphocyte Count 1.59 X10^3/uL (0.83-4.51); Absolute Neutrophil Count 2.9 X10^3/uL (2.0-7.7); Basophil# 0.03 X10^3/uL; Basophil% 0.6 % (0-1); Eosinophil# 0.35 X10^3/uL; Eosinophils% 6.7 % (0-5); Hematocrit 33.6 % (37-47); Hemoglobin 10.6 g/dL (12.0-15.0); Lymphocyte # 1.59 X10^3/ul (4.0); Lymphocyte % 30.3 % (19-41); Mean Corp Hgb Conc 31.5 g/dL (32-36); Mean Corpuscular Hgb 29.3 pg (27.0-32.0); Mean Corpuscular Volume 92.8 fL (81-99); Mean Platelet Vol. 9.5 fl (6.2-12.0); Monocyte# 0.35 X10^3/uL; Monocyte% 6.7 % (0-10); NRBC Flagged by Analyzer 0 % (0-5); Neutrophil % 55.3 % (47-70); Platelet Count 165 K/mm3 (150-450); RBC Distribution Width CV 13.1 % (11.6-14.6); RBC Distribution Width SD 44.4 fl (35.1-43.9); Red Blood Count 3.62 M/mm3 (4.2-5.4); White Blood Count 5.2 K/mm3 (4.4-11.0)
[2019-12-05 04:54] LABS: Anion Gap 5 (5-15); BUN 25 mg/dL (7-18); BUN/Creat Ratio 22.9 RATIO (10-20); Calcium,Total 8.6 mg/dL (8.5-10.1); Chloride 109 mmol/L (98-107); Cholesterol 155 mg/dL (200); Creatinine, Serum 1.09 mg/dL (0.55-1.02); EST Glomerular Filtration Rate 51 mL/min (>60); Est Glom Filt Rate - Afr Amer 62 mL/min (>60); Estimated Creatinine Clearance 31.47 ml/min; Glucose 100 mg/dL (74-106); High Density Lipoprotein 35 mg/dL; Potassium 3.9 mmol/L (3.5-5.1); Sodium Level 143 mmol/L (136-145); Triglycerides 123 mg/dL; Very Low Density Lipoprotein 25 mg/dL (5-40)
[2019-12-05 05:10] LABS: International Normalized Ratio 2.2; Prothrombin Time (Protime)PT. 23.5 SECONDS (11.7-14.9)
[2019-12-05 05:53] LABS: Partial Thromboplast Time > 250.0 Seconds (24.1-36.2)
--- NOTE | 2019-12-05 06:25 | ECHOD_ITS ---
Reason For Study: Chest pain Procedure This was a 2D Doppler, Color Flow transthoracic echocardiogram. Exam performed in department. Left Ventricle Normal size and thickness. The estimated ejection fraction is 65 %. Stage 2 diastolic dysfunction. No regional wall motion abnormalities noted. Right Ventricle Normal size and thickness. Normal systolic function. Atria Normal left atrium. Normal right atrium. Normal atrial septum. Mitral Valve The mitral valve is structurally normal. No prolapse or stenosis seen. Trivial mitral valve insufficiency. Tricuspid Valve Normal tricuspid valve. Mild (1+) tricuspid valve insufficiency. Right ventricular systolic pressure estimated to be 34 mmHg. Aortic Valve Trisinus/trileaflet aortic valve. Trivial aortic valve insufficiency. Pulmonic Valve Normal pulmonic valve. Trivial eccentric pulmonic valve insufficiency. Great Vessels Normal aortic root. Pericardium/Pleural No pericardial effusion. MMode/2D Measurements & Calculations LVIDd: 3.5 cm IVSd: 1.2 cm Ao root diam: 3.4 cm LVIDs: 2.3 cm LVPWd: 0.98 cm RVDd: 3.5 cm FS: 35.2 % LAV(MOD-bp): 47.2 ml LA A4 area: 18.8 cm2 LA dimension(2D): 3.8 cm LAV(MOD-bp) Indexed: 27.5 ml/m2 LAV(MOD-sp2): 40.7 ml LAV(MOD-sp4): 51.0 ml RA A4 area: 13.8 cm2 Doppler Measurements & Calculations MV E max leif: 83.1 cm/sec Lat Peak E' Leif: 9.4 cm/sec Med Peak E' Leif: 5.9 cm/sec MV A max leif: 85.0 cm/sec E/E' lat: 8.8 E/E' med: 14.1 MV E/A: 0.98 Ao V2 max: 118.3 cm/sec LV V1 max: 94.4 cm/sec PA V2 max: 106.8 cm/sec Ao max P.6 mmHg LV V1 max P.6 mmHg TR max leif: 260.4 cm/sec TR max P.2 mmHg Interpretation Summary The estimated ejection fraction is 65 %. Stage 2 diastolic dysfunction. Trivial mitral valve insufficiency. Mild (1+) tricuspid valve insufficiency. Right ventricular systolic pressure estimated to be 34 mmHg. Trivial aortic valve insufficiency. Compared to echo report dated 02/06/2018, LV function has remained the same, and RVSP has improved from 42 to 34 mmHg. Ordering Physician: Joni Slater Referring Physician: Yohannes Acosta Performed By: Alma Elliott RDCS
--- NOTE | 2019-12-05 06:25 | STE_ITS ---
Reason For Study: Chest Pain Stress Results Protocol: Dobutamine Stress Echo Maximum Predicted HR: 138 bpm Target HR: 117 bpm % Maximum Predicted HR: 104 % DurationHeart Rate Stage (mm:ss) (bpm) BP Comment Baseline 57 147/75No Chest Pain DSE 10 MCG 3:17 56 139/59No Chest Pain DSE 20 MCG 3:00 69 144/62No Chest Pain DSE 30 MCG 3:00 96 135/52No Chest Pain DSE 40 MCG 2:58 144 117/44No Chest Pain; Atropine 0.25 MG IVP Recovery 85 116/70No Chest Pain Stress Duration: 12:15 mm:ss Maximum Stress HR: 144 bpm METS: 1 Baseline Echocardiogram Findings The estimated ejection fraction is 65 %. Stress Echo Wall motion Data Resting WM Intermediate WM Stress WM Resting Wall Motion Wall Motion Stress No regional wall motion No regional wall motion abnormalities noted. abnormalities noted. EKG Data The baseline ECG displays normal sinus rhythm. The patient was titrated from 10 mcg to a maximum of 40 mcg of dobutamine during the stress. The maximum heart rate attained was 144 beats per minute. This was 104% of maximum predicted heart rate. At peak infusion, upsloping ST changes only were noted, which did not meet the criteria for ischemia. No clinical angina was noted. Interpretation Summary The estimated ejection fraction is 65 %. Normal, adequate, dobutamine echocardiogram. Negative for ischemia by EKG and echocardiographic criteria. No anginal symptoms noted. Rare PAC and PVC noted. Appropriate blood pressure response to dobutamine. Test terminated due to attainment target heart rate. Final LVEF is 75%. Patient tolerated procedure well. No complications. Ordering Physician: Joni Slater Referring Physician: Seferino Rojas Performed By: Alma Elliott RDCS
[2019-12-05 06:48] VITALS: PULSE 60
[2019-12-05 07:20] VITALS: O2SAT 97
[2019-12-05] MEDS: Aspirin 81 MG TAB.CHEW PO (08:04)
[2019-12-05] MEDS: Lisinopril 20 MG Tablet PO (08:04)
[2019-12-05 10:00] VITALS: BP 133/58; PULSE 65; RESP 18; TEMP 36.7; O2SAT 99
[2019-12-05 10:07] VITALS: PULSE 65
[2019-12-05] MEDS: Metoprolol(XL)Succ 50 MG Tablet PO (10:07)
[2019-12-05] MEDS: Multivitamins,Therapeutic Tablet 1 TABLET PO (10:07)
[2019-12-05] MEDS: Calcium (Elemental) 500 MG Tablet PO (10:07)
[2019-12-05 11:11] LABS: Color, Urine Yellow (Yellow); Glucose, Dipstick Normal (Normal); Ketone-Dipstick Negative (Negative); Leukocyte Esterase-Dipstick 500 /ul (Negative); Nitrite-Dipstick Negative (Negative); Occult Blood-Urine 25 /ul (Negative); Protein-Dipstick Negative (Negative); Urine Bilirubin Dipstick Negative (Negative); Urine Clarity Sl. Cloudy (Clear); Urine Urobilinogen Normal (Normal)
[2019-12-05 11:27] LABS: CRP < 2.90 mg/L (0.0-3.0)
[2019-12-05 11:35] LABS: Erythrocyte Sedimentation Rate 12 mm/hr (0-30)
--- NOTE | 2019-12-05 11:50 | DCINST_ITS ---
- Discharge Diagnoses Current Active Problems: Current Active and Chronic Problems (Last Reviewed 12/04/19 @ 21:[address] Joni Slater MD) Chest pain (Acute) Elevated troponin (Acute) Contusion of right shoulder (Acute) You will use the following diet at home:: Cardiac Discharge Activity: Return to Normal Activity Call your doctor if you observe: Shortness of breath, Dizziness, Fainting spells, Chest pain Allergies/Adverse Reactions: Allergies paroxetine HCl [From Paxil] Adverse Reaction (Mild, Verified 12/04/19 18:09) Nausea rosuvastatin calcium [From Crestor] Adverse Reaction (Mild, Verified 12/04/19 18:09) Nausea simvastatin [From Zocor] Adverse Reaction (Mild, Verified 12/04/19 18:09) Nausea Medications to take at Discharge Aspirin [Aspirin, Baby] 81 mg PO DAILY@0800 10/01/14 Calcium Carbonate [Calcium] 600 mg PO DAILY 09/02/18 Multivitamin [One Daily Multivitamin] 1 ea PO DAILY 09/02/18 traMADol [Ultram] 50 mg PO Q6H PRN PRN 09/02/18 metoprolol succinate 50 mg tablet,extended release 24 hr 50 mg PO BID 11/04/18 lisinopril 20 mg tablet 20 mg PO BID #180 tab 03/24/19 pravastatin 20 mg tablet 20 mg PO DAILY #90 tab 08/25/19 warfarin 4 mg tablet 4 mg PO DAILY #90 tab 10/02/19 Primary Care Physician: Yohannes Acosta DO [Primary Care Provider] - Please follow up with your Primary Care Physician in: 1 Week Test Results: Test results from this visit will be discussed in further detail at your follow- up appointment, if applicable. Please Follow Up With: Jason Guzman MD When: As scheduled Proposed Discharge Date: 12/05/19
--- NOTE | 2019-12-05 13:19 | PCM.DC.SUM ---
<Zoey Ovalles - Last Filed: 12/05/19 13:31> Discharge Date and Diagnosis Date of Admission: 12/04/19 Date of Discharge: 12/05/19 - Primary Discharge Diagnosis Acute Problems: Active Problems (Last Reviewed 12/04/19 @ 21:[address] Joni Slater MD) 1. Chest pain with abnormal troponin, ACS ruled out 2. History of thoracic aortic aneurysm status post repair in 2006 3. CAD 4. Hypertension 5. History of PE/aortic mural thrombus 6. Hyperlipidemia 7. Chronic kidney disease stage III 8. Acute uncomplicated UTI - Secondary Discharge Diagnosis Chronic Problems: Chronic Problems (Last Reviewed 12/04/19 @ 21:[address] Joni Slater MD) History of thoracic aortic aneurysm repair (Chronic ~06/22/06) Graft wrapping of the distal aortic suture line with the graft being 33mm tube graft 06/22/06 Essential hypertension (Chronic) shelter current use of anticoagulant (Chronic) Pulmonary emboli (Chronic) Thyroid nodule (Chronic) Aortic mural thrombus (Chronic) Hyperlipidemia (Chronic) Atherosclerotic heart disease of [place] coronary artery without angina pectoris (Chronic) long term use of drug (Chronic) Type 1 diabetes mellitus without complications (Chronic) Nonspecific abnormal unspecified cardiovascular function study (Chronic) Palpitations (Chronic) Atrial premature depolarization (Chronic) Ventricular premature depolarization (Chronic) Hospital Course and Treatment Imaging Results: Diagnostic Data Chest X-Ray 12/04/19 19:00 IMPRESSION: Normal x-ray examination of the chest. Electronically Signed: Mitchell Gold at 19:32 EDT Tel , Service support , Shoulder X-Ray 12/04/19 19:00 IMPRESSION: No acute osseous injury. Remote healed trauma of the humeral head. Osteoporosis. Electronically Signed: Mitchell Gold at 19:33 EDT Tel , Service support , Operations: None Procedures: 2-D Echocardiogram, Stress test Summary of Care Provided: The patient is a 84 year old F admitted 12/04/2019 due to chest pain. 1. Chest pain with abnormal troponin, ACS ruled out-indeterminate troponin, did not trend. Patient underwent stress echo which was negative for ischemia. Echocardiogram demonstrates an EF of 65%, stage II diastolic dysfunction, mild tricuspid valve insufficiency, RVSP estimated to be 34 mmHg. ESR and CRP normal. Chest x-ray unremarkable. Patient reports she has a sharp pain which lasted briefly when she lies on her side at night. Suspect musculoskeletal in nature. She also reports ongoing right shoulder pain and this may be referred pain related to this. Follow-up with primary care physician in 1 week. Follow-up with cardiology as scheduled. 2. History of thoracic aortic aneurysm status post repair in 2006 3. CAD, mild-continue aspirin, statin, metoprolol, lisinopril. 4. Hypertension-stable, continue current regimen. 5. History of PE/aortic mural thrombus-on anticoagulation with Coumadin. Heparin drip during admission due to subtherapeutic INR. INR at discharge 2.2. 6. Hyperlipidemia-continue statin regimen. 7. Chronic kidney disease stage III-at baseline. 8. Acute UTI-patient reports dysuria. Urine with 500 leukocytes. Culture pending. Initiated on Duricef 500 twice daily for 7 days. Patient seen and examined prior to discharge. Physical assessment as noted below. Patient is stable for discharge with follow up recommendations as noted above. This patient was seen by RADHA Siddiqi under the supervision of Dr. Small. - Physical Exam Vitals/I&O's: Vital Signs Temp Pulse Resp BP Pulse Ox 98.1 F 65 18 133/58 H 99 12/05/19 10:00 12/05/19 10:07 12/05/19 10:00 12/05/19 10:00 12/05/19 10:00 Oxygen Flow Rate (L/min) 99 Oxygen Delivery Method Room Air Weight: 156 lb 11.979 oz Body Mass Index (BMI) 28.6 Intake and Output for Last 24 Hours 12/03/19 12/04/19 12/05/19 23:59 23:59 23:59 Intake Total 119.98 / 119.98 267.67 / 267.67 Balance 119.98 / 119.98 267.67 / 267.67 General: Alert, Oriented x3, Cooperative HEENT: Atraumatic, PERRLA, EOMI, Normocephalic Neck: Supple, No JVD, Negative Carotid Bruits Lungs: Clear to auscultation, Normal air movement Cardiovascular: Regular rate, No murmurs Abdomen: Bowel Sounds Present, Soft, Non Tender Extremities: No edema, Capillary Refill Less than 3 Seconds Skin: No rashes, No breakdown Musculoskeletal: No Tenderness to Palpation of Joints or Extremities Neurological: Cranial nerves II-XII grossly intact, Neuro grossly intact Psych/Mental Status: Normal Affect, Appropriate Laboratory Results 12/04/19 18:43: WBC 5.4, RBC 3.67 L, Hgb 10.9 L, Hct 34.0 L, MCV 92.6, MCH 29.7, MCHC 32.1, RDW Std Deviation 44.2 H, RDW Coeff of Beena 13.1, Plt Count 196, MPV 9.8, Immature Gran % (Auto) 0.400, Neut % (Auto) 58.5, Lymph % (Auto) 26.7, [place] % (Auto) 8.4, Eos % (Auto) 5.4 H, Baso % (Auto) 0.6, Absolute Neuts (auto) 3.1, Absolute Lymphs (auto) 1.43, Nucleated RBC % 0 12/04/19 18:43: Sodium 141, Potassium 4.3, Chloride 109 H, Carbon Dioxide 31.0, Anion Gap 1 L, BUN 27 H, Creatinine 1.23 H, Estim Creat Clear Calc 27.89, Est GFR (MDRD) Af Amer 54 L, Est GFR (MDRD) Non-Af 44 L, BUN/Creatinine Ratio 22.0 H, Glucose 102, Calcium 8.8, Troponin I 0.051 H 12/04/19 18:43: PT 20.8 H, INR 1.9 12/04/19 20:49: APTT 35.5 12/04/19 20:49: Troponin I 0.060 H 12/05/19 00:30: Troponin I 0.071 H 12/05/19 04:24: WBC 5.2, RBC 3.62 L, Hgb 10.6 L, Hct 33.6 L, MCV 92.8, MCH 29.3, MCHC 31.5 L, RDW Std Deviation 44.4 H, RDW Coeff of Beena 13.1, Plt Count 165, MPV 9.5, Immature Gran % (Auto) 0.400, Neut % (Auto) 55.3, Lymph % (Auto) 30.3, [place] % (Auto) 6.7, Eos % (Auto) 6.7 H, Baso % (Auto) 0.6, Absolute Neuts (auto) 2.9, Absolute Lymphs (auto) 1.59, Nucleated RBC % 0 12/05/19 04:24: Sodium 143, Potassium 3.9, Chloride 109 H, Carbon Dioxide 29.0, Anion Gap 5, BUN 25 H, Creatinine 1.09 H, Estim Creat Clear Calc 31.47, Est GFR (MDRD) Af Amer 62, Est GFR (MDRD) Non-Af 51 L, BUN/Creatinine Ratio 22.9 H, Glucose 100, Calcium 8.6, Triglycerides 123, Cholesterol 155, LDL Cholesterol 95, VLDL Cholesterol 25, HDL Cholesterol 35 L 12/05/19 04:24: PT 23.5 H, INR 2.2, APTT > 250.0 H* 12/05/19 04:24: ESR 12 12/05/19 06:07: Troponin I 0.065 H 12/05/19 06:07: C-React Prot Ext Range < 2.90 12/05/19 10:30: Urine Color Yellow, Urine Clarity Sl. Cloudy, Urine pH 7.0, Ur Specific [place] 1.010, Urine Protein Negative, Urine Glucose (UA) Normal, Urine Ketones Negative, Urine Occult Blood 25 H, Urine Nitrite Negative, Urine Bilirubin Negative, Urine Urobilinogen Normal, Ur Leukocyte Esterase 500 H Current Medications Acetaminophen (Tylenol) 650 mg PO Q6H PRN PRN PRN Reason: Pain Score 1-10/Temp > 100.7 F Aspirin (Aspirin, Baby) 81 mg PO DAILY@0800 [facility] Last Admin: 12/05/19 08:04 Dose: 81 mg Documented by: Calcium Carbonate (Os-Jr 500) 500 mg PO DAILY [facility] Last Admin: 12/05/19 10:07 Dose: 500 mg Documented by: Dextrose (D50w Syringe) 0 gm IV X1 PRN; Protocol PRN Reason: Hypoglycemia Glucagon () 1 mg IM .X1 PRN PRN Reason: Hypoglycemia Heparin Sodium (Porcine) (Heparin Na) 0 unit IV UD PRN; Protocol Sodium Chloride () 250 mls @ 15 mls/hr IV .[id number] PRN PRN Reason: Saline Flush Sodium Chloride () 250 mls @ 15 mls/hr IV .[id number] PRN PRN Reason: Additional IVPB Infusion Lisinopril (Zestril) 20 mg PO BID [facility] Last Admin: 12/05/19 08:04 Dose: 20 mg Documented by: Metoprolol Succinate (Toprol Xl (Beta Lazara)) 50 mg PO BID [facility] Last Admin: 12/05/19 10:07 Dose: 50 mg Documented by: Multivitamins (Multivitamin) 1 tablet PO DAILY@0800 [facility] Last Admin: 12/05/19 10:07 Dose: 1 tablet Documented by: Nitroglycerin (Nitrostat) 0.4 mg SUBLINGUAL Q5M PRN PRN Reason: CARDIAC/CHEST PAIN Ondansetron HCl (Zofran) 4 mg IV Q8H PRN PRN PRN Reason: NAUSEA/VOMITING Pravastatin Sodium (Pravachol) 20 mg PO QHS [facility] Last Admin: 12/04/19 22:17 Dose: 20 mg Documented by: Senna/Docusate Sodium (Senokot-S, Cindy-Colace) 2 tablet PO BID PRN PRN PRN Reason: Constipation Sodium Chloride () 10 - 40 ml IV UD PRN PRN Reason: SALINE FLUSH Tramadol HCl (Ultram) 50 mg PO Q6H PRN PRN PRN Reason: Pain Score 1-10/10 Discharge Diet: Low fat/ Low Cholesterol Discharge Activity: Return to Normal Activity Call your doctor if you observe: Shortness of breath, Dizziness, Fainting spells, Chest pain Home Medications: Medications to take at Discharge Aspirin [Aspirin, Baby] 81 mg PO DAILY@0800 10/01/14 Calcium Carbonate [Calcium] 600 mg PO DAILY 09/02/18 Multivitamin [One Daily Multivitamin] 1 ea PO DAILY 09/02/18 traMADol [Ultram] 50 mg PO Q6H PRN PRN 09/02/18 metoprolol succinate 50 mg tablet,extended release 24 hr 50 mg PO BID 11/04/18 lisinopril 20 mg tablet 20 mg PO BID #180 tab 03/24/19 pravastatin 20 mg tablet 20 mg PO DAILY #90 tab 08/25/19 warfarin 4 mg tablet 4 mg PO DAILY #90 tab 10/02/19 Cefadroxil Hydrate [Duricef] 500 mg PO BID #14 cap 12/05/19 Following Prescrptions Were Given to Patient: Cefadroxil Hydrate [Duricef] 500 mg PO BID #14 cap Transmission Status: Received by [facility] Primary Care Physician: Yohannes Acosta DO [Primary Care Provider] - Please follow up with your Primary Care Physician in: 1 Week Please Follow Up With: Jason Guzman MD When: As scheduled Disposition: Home Minutes spent on discharge:: 35 Patient Condition:: Stable Medical Necessity - Tobacco Use Smoking Status: Never smoker Meaningful Use Info Meaningful Use Diagnoses (Choose all that apply): None applicable <Rolly Small - Last Filed: 12/05/19 15:19> Discharge Date and Diagnosis - Secondary Discharge Diagnosis Chronic Problems: Chronic Problems (Last Reviewed 12/04/19 @ 21:[address] Joni Slater MD) History of thoracic aortic aneurysm repair (Chronic ~06/22/06) Graft wrapping of the distal aortic suture line with the graft being 33mm tube graft 06/22/06 Essential hypertension (Chronic) long term current use of anticoagulant (Chronic) Pulmonary emboli (Chronic) Thyroid nodule (Chronic) Aortic mural thrombus (Chronic) Hyperlipidemia (Chronic) Atherosclerotic heart disease of [place] coronary artery without angina pectoris (Chronic) long term use of drug (Chronic) Type 1 diabetes mellitus without complications (Chronic) Nonspecific abnormal unspecified cardiovascular function study (Chronic) Palpitations (Chronic) Atrial premature depolarization (Chronic) Ventricular premature depolarization (Chronic) Hospital Course and Treatment Imaging Results: 12/05/19 06:25 Echo Complete [ECHO] Routine Stress Test Echo w/o Contrast [ECHO] Routine Summary of Care Provided: [] This patient was seen in conjunction with BAILING MACHINE OPERATORZoey. I have independently interviewed and examined the patient and reviewed pertinent history, examination findings, laboratory and plan of management. I have reviewed the note and agree with the documented findings with the few additional points. In brief, patient is 84-year-old female was admitted with chest pain. Patient had mildly elevated troponin in the range of 0.05 2.07. Patient had a stress echo done. It was negative for ischemia as per EKG and echo criteria. Echo shows EF 65% with stage II diastolic dysfunction, mild tricuspid insufficiency, RVSP 34 mmHg. CRP normal. Chest x-ray no acute cardiopulmonary process. It seems the patient has pain secondary to costochondritis or musculoskeletal pain. Patient has history of thoracic aortic aneurysm repair with aortic mural thrombus. Also has PE on Coumadin. Other comorbidities include coronary artery disease, dyslipidemia, hypertension, chronic kidney disease stage III Mild UTI: Patient is discharged on Duricef. I have discussed my assessment with BAILING MACHINE OPERATORZoey and orders have been reviewed. Objective: Seen and examined. Patient had intermittent chest pain at night while laying down for about 2 weeks. Currently chest pain-free. This is not associated with dizziness, shortness of breath, palpitation or diaphoresis. - Physical Exam Vitals/I&O's: Vital Signs Temp Pulse Resp BP Pulse Ox 98.1 F 65 18 133/58 H 99 12/05/19 10:00 12/05/19 10:07 12/05/19 10:00 12/05/19 10:00 12/05/19 10:00 Oxygen Flow Rate (L/min) 99 Oxygen Delivery Method Room Air Weight: 156 lb 11.979 oz Body Mass Index (BMI) 28.6 Intake and Output for Last 24 Hours 12/03/19 12/04/19 12/05/19 23:59 23:59 23:59 Intake Total 119.98 / 119.98 267.67 / 267.67 Balance 119.98 / 119.98 267.67 / 267.67 General: Alert, Oriented x3, Cooperative HEENT: Atraumatic, PERRLA, EOMI, Normocephalic Neck: Supple, No JVD, Negative Carotid Bruits Lungs: Clear to auscultation, Normal air movement, No rhonchi, No wheeze, No rales Cardiovascular: Regular rate, Regular Rhythm, Normal S1, Normal S2, No murmurs Abdomen: Bowel Sounds Present, Soft, Non Tender, Non-Distended Extremities: No edema, Capillary Refill Less than 3 Seconds Skin: No rashes, No breakdown Musculoskeletal: No Tenderness to Palpation of Joints or Extremities, Arthritic Changes Neurological: Cranial nerves II-XII grossly intact, Deep Tendon Reflexes 2+/4 and Symmetrical, Neuro grossly intact, Motor Exam 5/5 strength throughout Psych/Mental Status: Normal Affect, Appropriate Laboratory Results 12/04/19 18:43: WBC 5.4, RBC 3.67 L, Hgb 10.9 L, Hct 34.0 L, MCV 92.6, MCH 29.7, MCHC 32.1, RDW Std Deviation 44.2 H, RDW Coeff of Beena 13.1, Plt Count 196, MPV 9.8, Immature Gran % (Auto) 0.400, Neut % (Auto) 58.5, Lymph % (Auto) 26.7, [place] % (Auto) 8.4, Eos % (Auto) 5.4 H, Baso % (Auto) 0.6, Absolute Neuts (auto) 3.1, Absolute Lymphs (auto) 1.43, Nucleated RBC % 0 12/04/19 18:43: Sodium 141, Potassium 4.3, Chloride 109 H, Carbon Dioxide 31.0, Anion Gap 1 L, BUN 27 H, Creatinine 1.23 H, Estim Creat Clear Calc 27.89, Est GFR (MDRD) Af Amer 54 L, Est GFR (MDRD) Non-Af 44 L, BUN/Creatinine Ratio 22.0 H, Glucose 102, Calcium 8.8, Troponin I 0.051 H 12/04/19 18:43: PT 20.8 H, INR 1.9 12/04/19 20:49: APTT 35.5 12/04/19 20:49: Troponin I 0.060 H 12/05/19 00:30: Troponin I 0.071 H 12/05/19 04:24: WBC 5.2, RBC 3.62 L, Hgb 10.6 L, Hct 33.6 L, MCV 92.8, MCH 29.3, MCHC 31.5 L, RDW Std Deviation 44.4 H, RDW Coeff of Beena 13.1, Plt Count 165, MPV 9.5, Immature Gran % (Auto) 0.400, Neut % (Auto) 55.3, Lymph % (Auto) 30.3, [place] % (Auto) 6.7, Eos % (Auto) 6.7 H, Baso % (Auto) 0.6, Absolute Neuts (auto) 2.9, Absolute Lymphs (auto) 1.59, Nucleated RBC % 0 12/05/19 04:24: Sodium 143, Potassium 3.9, Chloride 109 H, Carbon Dioxide 29.0, Anion Gap 5, BUN 25 H, Creatinine 1.09 H, Estim Creat Clear Calc 31.47, Est GFR (MDRD) Af Amer 62, Est GFR (MDRD) Non-Af 51 L, BUN/Creatinine Ratio 22.9 H, Glucose 100, Calcium 8.6, Triglycerides 123, Cholesterol 155, LDL Cholesterol 95, VLDL Cholesterol 25, HDL Cholesterol 35 L 12/05/19 04:24: PT 23.5 H, INR 2.2, APTT > 250.0 H* 12/05/19 04:24: ESR 12 12/05/19 06:07: Troponin I 0.065 H 12/05/19 06:07: C-React Prot Ext Range < 2.90 12/05/19 10:30: Urine Color Yellow, Urine Clarity Sl. Cloudy, Urine pH 7.0, Ur Specific [place] 1.010, Urine Protein Negative, Urine Glucose (UA) Normal, Urine Ketones Negative, Urine Occult Blood 25 H, Urine Nitrite Negative, Urine Bilirubin Negative, Urine Urobilinogen Normal, Ur Leukocyte Esterase 500 H OBSV E&M: [id number] Observation care discharge
== END 2019-12-05 11:50 | disposition home or self-care (01) ==
LOC: ED 18:58 → PCU 20:20
PROVIDERS: Nurse Practitioner Family; Admitting Provider Hospitalist; Emergency Provider Emergency Medicine; PCP Student in an Organized Health Care Education/Training Program; Visit Provider Internal Medicine
DX: R07.89 Other chest pain (principal); I25.10 Atherosclerotic heart disease of native coronary artery without angina pectoris; I12.9 Hypertensive chronic kidney disease with stage 1 through stage 4 chronic kidney disease, or unspecified chronic kidney disease; N18.3 Chronic kidney disease, stage 3 (moderate); N39.0 Urinary tract infection, site not specified; E78.5 Hyperlipidemia, unspecified; E10.22 Type 1 diabetes mellitus with diabetic chronic kidney disease; M25.511 Pain in right shoulder; I25.2 Old myocardial infarction; Z86.711 Personal history of pulmonary embolism; Z79.899 Other long term (current) drug therapy; Z79.01 Long term (current) use of anticoagulants; Z79.82 Long term (current) use of aspirin
CPT/HCPCS: 36415; 71045; 73030; 80048; 80061; 81002; 84484; 85025; 85610; 85652; 85730; 86140; 87086; 87088; 87186; 93005; 93017; 93306; 93350; 96365; 96366; 96376; 97161; 97165; 99218; 99285; J7040; A4216; G0378

== ENCOUNTER → 2020-04-05 | Outpatient (CLI) | payer MEDICARE, OTHER, SELFPAY ==
[2020-04-05 08:03] VITALS: BMI 29.0
--- NOTE | 2020-04-05 08:52 | RAD_ITS ---
HISTORY: Abdominal pain. 3 images of the abdomen. No previous x-rays of the abdomen. Previous x-ray of the chest and upper abdomen is from December 04, 2019. Previous CT scan of the chest, which extends down to below the spleen is from February 06, 2018. Sternal wires remain. Degenerative disc disease is present. Enthesophytes present about the pelvis. Surgical clips are present at the level of the pubic symphysis. Bowel gas pattern is normal. Lung bases are clear. The stomach is not distended. Laminectomy at L5. RAD/Abd Inc Decub and/or Erect IMPRESSION: No acute disease perceived. at 0509 Reported and signed by: Milad Melo MD Electronically Signed: Milad Melo MD at 5:08 EST Tel , Service support ,
== END | disposition home or self-care (01) ==
LOC: RAD 08:50
PROVIDERS: PCP Student in an Organized Health Care Education/Training Program; Referring Provider Surgery; Visit Provider Surgery
DX: R10.9 Unspecified abdominal pain (principal)
CPT/HCPCS: 74019

== ENCOUNTER → 2020-10-08 12:24 | Outpatient (CLI) | payer MEDICARE, OTHER, SELFPAY ==
--- NOTE | 2020-10-08 12:30 | BI_ITS ---
MAMMOGRAPHY - BILATERAL SCREENING REASON FOR EXAM: Female, 85 years old. Routine annual screening examination. PERTINENT HISTORY: Non-contributory. Remote left excisional breast biopsy. TECHNIQUE: Digital bilateral breast helio (3D mammographic acquisition) in the CC and MLO projections. 2-D mediolateral oblique (MLO) and craniocaudad (CC) views of both breasts were obtained. CAD: Full Field Digital Mammography with Computer Added Detection was performed. COMPARISON: Comparison is made with prior study dated 10/07/2019 and 10/04/2018. FINDINGS: Breast Composition: There are scattered areas of fibroglandular density. There are no dominant masses or suspicious calcifications. No other significant abnormalities are identified. There has been no significant change since the prior study. BI/SCRN MAMM (CAD)W/HELIO BILAT IMPRESSION: Stable bilateral screening mammogram. Yearly follow-up mammogram recommended. (A) ASSESSMENT CATEGORY: BIRADS Category 1: Negative. A letter regarding these results will be sent to the patient by the facility within 30 days. Approximately 10% of breast cancers are not detected by mammography. A normal mammogram should not delay biopsy of a clinically suspicious abnormality. [id number] Electronically Signed: Compa Roach MD at 13:43 EDT , Service support ,
== END ==
PROVIDERS: PCP Student in an Organized Health Care Education/Training Program; Referring Provider Internal Medicine Hematology & Oncology; Visit Provider Internal Medicine Hematology & Oncology
DX: Z12.31 Encounter for screening mammogram for malignant neoplasm of breast (principal)
CPT/HCPCS: 77063; 77067

== ENCOUNTER → 2021-05-24 15:32 | Outpatient (CLI) | payer MEDICARE, MEDICAID, SELFPAY ==
[2021-05-24 17:24] LABS: BNP,B-Type NATRIURETIC PEPTIDE 125.4 pg/mL (0-100)
[2021-05-24 17:27] LABS: Anion Gap 6 (5-15); BUN 29 mg/dL (7-18); BUN/Creat Ratio 19.3 RATIO (10-20); Calcium,Total 9.2 mg/dL (8.5-10.1); Chloride 104 mmol/L (98-107); EST Glomerular Filtration Rate 35 mL/min (>60); Est Glom Filt Rate - Afr Amer 43 mL/min (>60); Glucose 93 mg/dL (74-106); Potassium 4.7 mmol/L (3.5-5.1); Sodium Level 139 mmol/L (136-145)
== END ==
PROVIDERS: PCP Student in an Organized Health Care Education/Training Program; Visit Provider Nurse Practitioner Gerontology
DX: R06.00 Dyspnea, unspecified (principal)
CPT/HCPCS: 36415; 80048; 83880

== ENCOUNTER → 2021-09-28 | Outpatient (CLI) | payer MEDICARE, MEDICAID, SELFPAY ==
--- NOTE | 2021-09-28 10:10 | STRESSREP ---
Stress Test Report Date: 09-28-2021 Procedure: Pharmacologic stress nuclear imaging study Indications: Chest pain; PACs/PVCs; thoracic aortic aneurysm; hyperlipidemia; hypertension Consent: Per the patient Procedure: The patient underwent pharmacologic (Regadenoson 0.4mg ) evaluation with a peak heart rate of 82 beats per minute (60%predicted maximal heart rate) and a peak blood pressure of 130/62 mmHg. The baseline ECG demonstrated normal sinus rhythm. The peak pharmacologic ECG demonstrated no obvious ECG changes. There were no cardiac dysrhythmias pretest, during pharmacologic infusion, or recovery. There was no complaint of chest discomfort during pharmacologic infusion or recovery. The examination was discontinued secondary to completion of protocol. Impression: 1. Pharmacologic (Regadenoson) evaluation 2. Peak pharmacologic ECG with no obvious ECG changes. 3. There were no cardiac dysrhythmias pretest, during pharmacologic infusion, or recovery. 4. Nuclear images pending Myocardial perfusion imaging study: Technique: The patient was injected with 11.3 millicuries of technetium 99m Cardiolite and subsequently rest SPECT Cardiolite nuclear imaging was obtained in the horizontal long, vertical long, and short axis views. The patient underwent pharmacologic (Regadenoson) evaluation with a peak heart rate of 82 beats per minute (60% percent predicted maximal heart rate) and a peak blood pressure of 130/62 mmHg. The patient was injected with 34.2 millicuries of technetium 99m Cardiolite and subsequently stress SPECT Cardiolite nuclear imaging was obtained in the horizontal long, vertical long, and short axis views. A gated Cardiolite study at peak stress was obtained. Interpretation: Rest and stress SPECT Cardiolite nuclear imaging status post realignment, normalization, and attenuation correction demonstrate relative uniform tracer uptake and myocardial perfusion appearing within normal limits. There is end systolic thickening and brightening. The gated Cardiolite study demonstrates myocardial thickening and inward wall motion. The reported LVEF is 80%. Impression: 1. Rest and stress SPECT Cardiolite nuclear imaging demonstrate relative uniform tracer uptake and myocardial perfusion appearing within normal limits. 2. The gated Cardiolite study reports an LVEF of 80%. This note was generated with [employer] software. It may contain incorrect words, spelling, and punctuation that were not noted in checking the note before signing.
== END | disposition home or self-care (01) ==
LOC: CVS 05:59
PROVIDERS: PCP Student in an Organized Health Care Education/Training Program; Referring Provider Nurse Practitioner Gerontology; Visit Provider Nurse Practitioner Gerontology
DX: R07.89 Other chest pain (principal)
CPT/HCPCS: 78452; 93017; A9500; A4216; J2785

== ENCOUNTER → 2022-01-30 | Outpatient (CLI) | payer MEDICARE, MEDICAID, SELFPAY ==
--- NOTE | 2022-01-30 08:41 | AAVD_ITS ---
Reason For Study: Aneurysm Aorta Measurements Aorta Doppler Measurements Proximal aorta measures1.40cm x 1.45cm. in cross- Peak systolic flow velocities within the proximal sectional axis. aorta measure 73 cm/sec. Proximal aorta measures1.86cm. in longitudinal Peak systolic flow velocities within the mid aorta axis. measure 71 cm/sec. Mid aorta measures1.86cm x 1.74cm. in cross- Peak systolic flow velocities within the distal sectional axis. aorta measure 107 cm/sec. Mid aorta measures1.65cm. in longitudinal axis. Distal aorta measures1.43cm x 1.46cm. in cross- sectional axis. Distal aorta measures1.56cm. in longitudinal axis. Left Iliac Artery Left iliac artery measures 0.99cm x 0.93 cm. in the cross-sectional axis. Left iliac artery measures 1.06 cm. in the longitudinal axis. Peak systolic velocity in the left iliac artery measures 114 cm/sec. Right Iliac Artery Right iliac artery measures 0.95cm x 0.97 cm. in the cross-sectional axis. Right iliac artery measures 0.90 cm. in the longitudinal axis. Peak systolic velocity in the right iliac artery measures 112 cm/sec. Procedure Aorta IVC Iliac vasculature or bypass grafts [id number]. Exam performed in department. VL/Abd Aortic/IVC Duplex scan Interpretation Summary Maximal mid aortic dimensions of 1.86 x 1.74 cm in diameter with a slight bulbo us area but not criteria to meet the definition of ectasia or aneurysm Normal aortic flow velocity Left common iliac normal at 0.99 x 0.93 cm in diameter Right common iliac normal at 0.95 x 0.97 cm in diameter Ordering Physician: Jason Guzman Referring Physician: Yohannes Acosta Performed By: Isabela Elena, ALFCS, RVT
== END | disposition home or self-care (01) ==
LOC: CVS 08:41
PROVIDERS: PCP Student in an Organized Health Care Education/Training Program; Referring Provider Internal Medicine Cardiovascular Disease; Visit Provider Internal Medicine Cardiovascular Disease
DX: I26.99 Other pulmonary embolism without acute cor pulmonale (principal)
CPT/HCPCS: 93978

== ENCOUNTER → 2022-07-24 | Outpatient (CLI) | payer MEDICARE, MEDICAID, SELFPAY ==
--- NOTE | 2022-07-24 07:56 | CT_ITS ---
STUDY: CTA CHEST REASON FOR EXAM: Female, 87 years old. Chest pain, known thoracic aortic aneurysm RADIATION DOSAGE (If Supplied By Facility): CTDIvol = ( 11.90 ) mGy, DLP = ( 433.03 ) mGycm TECHNIQUE: The examination was performed with the intravenous administration of IV 100mL Isovue-370. Post-processing of the angiographic images was performed, with multiplanar reformation and 3D reconstruction. Individualized dose optimization techniques were used for this CT. COMPARISON: 04/08/2022 FINDINGS: Stable enlargement of the thyroid gland with multiple bilateral low-density nodules noted. Normal enhancement of the main pulmonary artery and right and left pulmonary arteries. Normal enhancement of the bilateral peripheral pulmonary arteries. There is no demonstrated pulmonary embolism. Peripheral calcifications noted in the descending and descending thoracic aorta, there is stable aneurysmal dilatation of both the ascending and descending thoracic aorta. The ascending thoracic aorta measures approximately 4.75 cm in greatest dimension while the descending thoracic aorta measures 5.17 cm, no evidence of dissection or periaortic fluid. There has been a remote CABG. Normal mediastinum. Normal hilar regions. There is peribronchial thickening. The lungs are well expanded. Chronic interstitial changes in both lung fallon noted, no demonstrated effusion or atelectasis. Normal pleura. Normal chest wall structures. There are degenerative changes of thoracic spine. Limited cuts through the upper abdomen do not show a suspicious abnormality CT/CTA Chest W/WO Contrast IMPRESSION: Stable aneurysmal dilatation of both the ascending and descending thoracic aorta. Peripheral calcifications are present in the ascending and descending aorta without dissection No demonstrated PE Remote CABG Chronic interstitial changes in both lung fallon without a superimposed acute pulmonary process Stable enlarged thyroid with multiple bilateral nodules suggesting goiter Degenerative bony changes Electronically Signed: Lazaro Paz MD at 11:30 EST ,
[2022-07-24 08:36] LABS: CREATININE FINGERSTICK 1.4 mg/dL (0.55-1.02)
== END | disposition home or self-care (01) ==
PROVIDERS: PCP Student in an Organized Health Care Education/Training Program; Visit Provider Nurse Practitioner Family
DX: Z98.890 Other specified postprocedural states (principal); Z86.79 Personal history of other diseases of the circulatory system
CPT/HCPCS: 71275; Q9967

== ENCOUNTER 2022-09-24 04:29 | Observation (INO) | payer MEDICARE, MEDICAID, SELFPAY ==
[2022-09-24] VITALS (10 sets, daily range): BP systolic 100–142; BP diastolic 55–67; PULSE 72–97; RESP 16–18; TEMP 36.6–37.4; O2SAT 94–98; BMI 30.6; BMI 27.5
--- NOTE | 2022-09-24 04:36 | CT_ITS ---
INDICATION: polytrauma EXAMINATION: CT CERVICAL SPINE - CT Spine Cervical W/O Contrast Injection TECHNIQUE: Helically acquired images were obtained of the cervical spine. 2D reformatted images were reviewed. A radiation dose optimization technique was used for this scan. IV Contrast dosage and agent: None. RADIATION DOSAGE (If Supplied By Facility): CTDIvol = ( 19.46 ) mGy, DLP = ( 409.49 ) mGycm COMPARISON: MRI cervical spine 05/18/2014 and CTA chest 07/24/2022 FINDINGS: ALIGNMENT: Normal. VERTEBRAL BODIES: No fracture or acute abnormality. DISC SPACES: Multilevel degenerative changes with intervertebral disc space narrowing and disc osteophyte complex formation contributing to mild to moderate spinal canal and neuroforaminal narrowing worst on the right.. POSTERIOR ELEMENTS: Normal. SPINAL CANAL: Normal. PARASPINAL SOFT TISSUES: Normal. LUNG APICES: Visualized portions normal. 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 Thyroid nodularity measuring up to [address]/Spine Cervical without Contras IMPRESSION: No acute fracture or subluxation. 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 Electronically Signed: Farhat Faith MD at 5:22 EDT ,
--- NOTE | 2022-09-24 04:36 | CT_ITS ---
INDICATION: head injury EXAMINATION: CT BRAIN - CT Head or Brain W/O Contrast Injection TECHNIQUE: Multiple axial images were obtained of the head without intravenous contrast. A radiation dose optimization technique was used for this scan. IV Contrast dosage and agent: None. RADIATION DOSAGE (If Supplied By Facility): CTDIvol = ( 44.99 ) mGy, DLP = ( 796.11 ) mGycm COMPARISON: None FINDINGS: BRAIN: Normal chaney/white matter differentiation. VENTRICLES: No hydrocephalus. Bilateral periventricular hypoattenuation, nonspecific however likely represents chronic microvascular ischemic changes. EXTRA-AXIAL SPACES: No hemorrhages, fluid collections, or masses. CALVARIUM/SKULL BASE: Normal. FACE/SINUSES: Visualized portions normal. SOFT TISSUES: Left parietal scalp soft tissue swelling and laceration. OTHER: None. CT/Brain/Head without Contrast IMPRESSION: No intracranial hemorrhage or depressed calvarial fracture. Electronically Signed: Farhat Faith MD at 5:15 EDT ,
--- NOTE | 2022-09-24 04:50 | ED.VIS.FALL ---
HPI HPI - Fall History of Present Illness Chief Complaint: Fall Informant: patient and EMS Occured/Mechanism Occurred: Today Narrative Narrative: Brought in from [facility] assisted living by EMS fall with head injury. Reports returning from getting a bottle she stumbled falling onto the closet frame. Bleeding to the head controlled with pressure. Unclear on tetanus at this time. She is on warfarin history of pulmonary embolism from records. Denies any other pain or injuries. 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 Atrial premature depolarization Constipation COVID-19 Dementia Dizziness and giddiness Epigastric pain Essential hypertension Hyperlipidemia alf current use of anticoagulant terminal manager use of drug Nonspecific abnormal unspecified cardiovascular function study NSTEMI (non-ST elevated myocardial infarction) Old myocardial infarction Palpitations Precordial chest pain Pulmonary emboli Thyroid nodule Type 1 diabetes mellitus without complications Ventricular premature depolarization Home Medications lisinopril 20 mg tablet 20 mg PO BID #180 tabs 05/03/20 [Rx Last Taken Unknown] pravastatin 20 mg tablet 20 mg PO DAILY #60 tabs 08/26/20 [Rx Last Taken Unknown] cholecalciferol (vitamin D3) 1,250 mcg (50,000 unit) capsule 1,250 mcg PO QWEEK 09/30/21 [History Last Taken Unknown] cyanocobalamin (vitamin B-12) 1,000 mcg tablet 1,000 mcg PO DAILY 09/30/21 [History Last Taken Unknown] metoprolol tartrate 50 mg tablet 50 mg PO BID 09/30/21 [History Last Taken Unknown] omeprazole 40 mg capsule,delayed release 40 mg PO DAILY 09/30/21 [History Last Taken Unknown] oxybutynin chloride 10 mg tablet,extended release 24 hr 10 mg PO BID 09/30/21 [History Last Taken Unknown] acetaminophen 500 mg capsule 1,000 mg PO TID PRN pain 12/23/21 [History Last Taken Unknown] melatonin 3 mg tablet 6 mg PO HS PRN 12/23/21 [History Last Taken Unknown] amlodipine 5 mg tablet 10 mg PO DAILY 06/19/22 [History Last Taken Unknown] apixaban 2.5 mg tablet (Eliquis) 2.5 mg PO BID 06/19/22 [History Last Taken Unknown] sertraline 50 mg tablet 75 mg PO DAILY 06/19/22 [History Last Taken Unknown] Allergy/AdvReac Type Severity Reaction Status Date / Time paroxetine HCl [From Paxil] AdvReac Mild Nausea Verified 06/19/22 08:16 rosuvastatin calcium AdvReac Mild Nausea Verified 06/19/22 08:16 [From Crestor] simvastatin [From Zocor] AdvReac Mild Nausea Verified 06/19/22 08:16 Family History Brother Heart disease Father Myocardial infarction Other Clotting disorder Surgical History History of bladder suspension procedure History of hernia repair History of partial hysterectomy History of thoracic aortic aneurysm repair (~06/22/06) Social History housing: assisted living facility Smoking Status: Never smoker second hand exposure: No alcohol intake: never substance use type: does not use caffeine: Yes Type: carbonated beverages Number of servings: 2 dia/restorationist: Spiritism seatbelt use: always do you feel safe at home: Yes ROS ROS ED Constitutional Constitutional ED: Denies chills, fever(s) or sweats Eyes Eyes: Denies change in vision ENT ENT ED: Denies dysphagia or sore throat Cardiovascular Cardiovascular: Denies chest pain, leg edema, palpitations or racing heartbeat Respiratory/Chest Respiratory/Chest: Denies cough, dyspnea or dyspnea on exertion Gastrointestinal Gastrointestinal: Denies abdominal pain, diarrhea, nausea or vomiting Genitourinary Genitourinary ED: Denies dysuria, hematuria or urinary frequency Musculoskeletal Musculoskeletal: Denies back pain, extremity pain or neck pain Integumentary Reports wounds; Denies rash Neurologic Neurologic: Reports headache(s); Denies paresthesias or weakness EXAM Physical Exam Const Vital Signs: 09/24/22 04:31 09/24/22 04:38 09/24/22 06:30 Temperature 98.7 F Temperature Source Oral Pulse Rate 72 76 Respiratory Rate 16 16 Respiratory Effort Normal Respiratory Depth Normal Respiratory Pattern Normal Blood Pressure 139/55 H 105/58 L Blood Pressure Mean 83 73 Pulse Ox 98 95 94 Oxygen Delivery Method Room Air Room Air Room Air Positive well nourished and well developed General Appearance ED: well developed and NAD HEENT Reports TM's normal bilaterally and moist mucous membranes HEENT Narrative: No hemotympanums normocephalic Eyes PERRL, EOMs intact bilaterally and conjunctivae normal General Eye ED: Yes normal appearance of both eyes Neck full ROM, no lymphadenopathy and supple General: Negative for tenderness Chest Wall inspection of chest normal and palpation of chest normal Chest Narrative: Nontender Chest: Negative for tenderness Resp normal respiratory effort and normal air movement Resp Narrative: Symmetric breath sounds Effort and Inspection: symmetric chest movement; Negative for respiratory distress Cardio regular rate, regular rhythm and no murmurs Peripheral Pulses: pulses 2+ throughout GI normal to inspection, nondistended, normoactive bowel sounds and non-tender Palpation: Negative for guarding or rebound tenderness present Back/Spine no CVA tenderness and no thoracic nor lumbar tenderness Extremity normal to inspection Extremity Narrative: Moving all 4 extremities no pain. Negative logroll lower extremities. General Extremety ED: Negative for edema or tenderness General Extremity: Negative for edema Neuro CN's II-XII intact bilaterally and no sensory deficits noted Neuro Narrative: To person and place, cannot tell me the year however able to tell me the month which is September. Sensorium / Orientation: awake and alert Skin no rashes or lesions noted and no wounds MDM MDM MDM Narrative Medical decision making narrative: Interventions / MDM: Differential diagnosis: Head injury, intracranial hemorrhage, scalp laceration Diagnosis considered but do not suspect: N/A My EKG interpretation: N/A Imaging independently reviewed and interpreted by myself: CT brain/cervical spine: Soft tissue swelling on the crown, no skull fracture no intracranial hemorrhage. Degenerative change cervical spine no fracture or subluxation. Also read by radiology. External documents reviewed: N/A Test considered but not ordered:N/A ED course: Trauma scans head and neck were negative wound with cleansed and sick sierra placed with noted 5 cm laceration on the left crown. Wound care discussed with son. Calling facility there is no tetanus on record therefore tetanus updated in the ED. We did attempt to ambulate the patient with her walker however she cannot coordinate her legs there is no pain. She currently assisted living. Initially son states he can be there to take care of her and stating that they do have a skilled care signed over at the facility. Initial plan to discharge. However today is Sunday, nursing did call out to facility they will call nursing management to see if this can be coordinated on Sunday for increasing care prior to discharge otherwise may need admission to help with transition. Further discussion with son, she is recent transition over to Eliquis twice a day and not on Coumadin. Eliquis was noted on her recent medication. 0710: Currently still waiting callback from assisted living facility and transition to be made. 2 sons currently present, reiterate unable to take care of her at this date. Patient with no back pain or leg pain unable to coordinate with her gait. In the meantime we will check labs and add a urine further evaluation of her weakness. Previous labs had a creatinine 1.5 from records. I spoke with hospitalist Dr. Black, we will continue to observe in the ED and attempt to place with facility since his boat deckhand. If unable will call back for admission. Re-evaluation: stable Disposition discussed with patient/family/significant other: Son Case discussed with consulting clinician: N/A Lab Data Labs: Laboratory Results - last 24 hr 09/24/22 04:45 PT 14.7 INR 1.2 Radiography Diagnostic Testing: Clinical Impression(s) from Imaging Studies Brain CT 09/24/22 04:36 IMPRESSION: No intracranial hemorrhage or depressed calvarial fracture. Electronically Signed: Farhat Faith MD at 5:15 EDT , Cervical Spine CT 09/24/22 04:36 IMPRESSION: No acute fracture or subluxation. 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 Electronically Signed: Farhat Faith MD at 5:22 EDT , Discharge Plan Triage Chief Complaint: Fall ED Provider: Nino Pizarro Dx/Rx/DC Orders Clinical Impression: Fall, Laceration of scalp, Weakness, Tetanus toxoid vaccination administered at current visit Instructions: ED Head Injury (Adult), ED Laceration Scalp Stitches or Sierra Prescriptions: No Action melatonin 3 mg tablet 6 mg PO HS PRN sertraline 50 mg tablet 75 mg PO DAILY acetaminophen 500 mg capsule 1,000 mg PO TID PRN (Reason: pain) metoprolol tartrate 50 mg tablet 50 mg PO BID omeprazole 40 mg capsule,delayed release(DR/EC) 40 mg PO DAILY oxybutynin chloride 10 mg tablet extended release 24hr 10 mg PO BID cyanocobalamin (vitamin B-12) 1,000 mcg tablet 1,000 mcg PO DAILY cholecalciferol (vitamin D3) 1,250 mcg (50,000 unit) capsule 1,250 mcg PO QWEEK amlodipine 5 mg tablet 10 mg PO DAILY Eliquis 2.5 mg tablet 2.5 mg PO BID lisinopril 20 mg tablet 20 mg PO BID Qty: 180 3RF pravastatin 20 mg tablet 20 mg PO DAILY Qty: 60 12RF Primary Care Provider: Yohannes Acosta Referrals: Yohannes Acosta DO [Primary Care Provider] - 10 Day for suture removal Activity Restrictions/Additional Instructions: CT scan head and neck are negative. 10 sierra placed. Wound care as discussed. Sierra to be removed in 10 days.
[2022-09-24 05:01] LABS: International Normalized Ratio 1.2; Prothrombin Time (Protime)PT. 14.7 SECONDS (11.7-14.9)
--- NOTE | 2022-09-24 05:31 | ED.RN ---
Called [facility], spoke with Bhavani, they do not have patients last tetanus shot on file. Dr Johnson. While on the phone, this RN gave Bhavani report that patient will be returning with 6 ania in the back of her head and had clear scans done in the ED.
[2022-09-24] MEDS: Diphth,Pertuss(Acell),Tet Vac 0.5 ML Vial IM (05:57)
[2022-09-24 07:29] LABS: Absolute Lymphocyte Count 1.03 X10^3/uL (0.83-4.51); Absolute Neutrophil Count 6.4 X10^3/uL (2.0-7.7); Basophil# 0.03 X10^3/uL; Basophil% 0.4 % (0-1); Eosinophil# 0.17 X10^3/uL; Eosinophils% 2.1 % (0-5); Hematocrit 33.1 % (37-47); Hemoglobin 10.8 g/dL (12.0-15.0); Lymphocyte # 1.03 X10^3/ul (0.83-4.51); Lymphocyte % 12.6 % (19-41); Mean Corp Hgb Conc 32.6 g/dL (32-36); Mean Corpuscular Volume 91.9 fL (81-99); Mean Platelet Vol. 8.6 fl (6.2-12.0); Monocyte% 6.1 % (0-10); NRBC Flagged by Analyzer 0 % (0-5); Neutrophil % 78.2 % (47-70); Platelet Count 211 K/mm3 (150-450); RBC Distribution Width CV 13.1 % (11.6-14.6); RBC Distribution Width SD 44.1 fl (35.1-43.9); White Blood Count 8.2 K/mm3 (4.4-11.0)
[2022-09-24 07:43] LABS: Anion Gap 8 (5-15); BUN 32 mg/dL (7-18); BUN/Creat Ratio 20.3 RATIO (10-20); Calcium,Total 9.1 mg/dL (8.5-10.1); Chloride 102 mmol/L (98-107); Creatinine, Serum 1.58 mg/dL (0.55-1.02); EST Glomerular Filtration Rate 33 mL/min (>60); Est Glom Filt Rate - Afr Amer 40 mL/min (>60); Estimated Creatinine Clearance 20.59 ml/min; Glucose 107 mg/dL (74-106); Potassium 4.3 mmol/L (3.5-5.1); Sodium Level 134 mmol/L (136-145)
[2022-09-24 08:39] LABS: Mucous, Urine 0 SEEN /hpf (<or=2+); Red Blood Cells-Urine 0 SEEN /hpf (0-5); Squamous Epithelial Cells - UA 0 SEEN /hpf (5-10)
--- NOTE | 2022-09-24 08:47 | ED.RN ---
0849-THIS RN CONTACTED [facility], SPOKE WITH LALO NURSE TAKING CARE OF PT. THIS RN INQUIRING IF FACILITY HAD [place] TODAY, HOPE REPORTS SHE WILL CONTACT THE ROLLER SKATE ASSEMBLERRIBBON INKER AND HAVE THE ROLLER SKATE ASSEMBLERRIBBON INKER GIVE THIS RN A CALL BACK.
[2022-09-24 08:59] LABS: Color, Urine Yellow (Yellow); Glucose, Dipstick Normal (Normal); Ketone-Dipstick Negative (Negative); Leukocyte Esterase-Dipstick 500 /ul (Negative); Nitrite-Dipstick Negative (Negative); Occult Blood-Urine 10 /ul (Negative); Protein-Dipstick Negative (Negative); Urine Bilirubin Dipstick Negative (Negative); Urine Clarity Clear (Clear); Urine Urobilinogen Normal (Normal)
--- NOTE | 2022-09-24 09:19 | ED.RN ---
THIS RN SPOKE WITH LALO AT [facility], LALO REPORTS THAT THE DINING ROOM ATTENDANT AMMONIA DISTILLER STATES, THAT OUR SOCIAL WORK WILL NEED TO FAX THE REFERRAL. NO ED SOCIAL WORK TODAY, PER PUMP AND BLOWER OPERATOR, NO INPATIENT AMMONIA DISTILLER TODAY EITHER. DR. BOOTHE INFORMED VIA BACK LINE MESSAGE AT 0915.
[2022-09-24 09:23] LABS: Bacteria 1+ /hpf (None Seen)
[2022-09-24 09:25] LABS: White Blood Cells 10-25 SEEN /hpf (0-5)
--- NOTE | 2022-09-24 09:51 | HP.PCM.HOS_ITS ---
[facility] - [facility] General Date of Service: 09/24/22 Chief Complaint: fall [facility] Narrative JUNO STEPHENSON, is a 87 F who presents after fall at her assisted living. Patient was getting up to go the restroom and then fell. She fell in the closet frame hitting the left side of her head. Patient was brought to the emergency room and underwent imaging including cervical spine CT, head CT that were unremarkable. Patient had a laceration left side of her head that required 5 sierra. The try to get the patient up but she was unsteady on her feet. They reached out to [facility] to see if they can get more services for her but there is no clinical social work therapist case management on this weekend. The hospital service was contacted to bring the patient in. 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 Atrial premature depolarization Constipation COVID-19 Dementia Dizziness and giddiness Epigastric pain Essential hypertension Hyperlipidemia retirement current use of anticoagulant retirement use of drug Nonspecific abnormal unspecified cardiovascular function study NSTEMI (non-ST elevated myocardial infarction) Old myocardial infarction Palpitations Precordial chest pain Pulmonary emboli Thyroid nodule Type 1 diabetes mellitus without complications Ventricular premature depolarization Home Medications lisinopril 20 mg tablet 20 mg PO BID #180 tabs 05/03/20 [Rx Last Taken Unknown] pravastatin 20 mg tablet 20 mg PO DAILY #60 tabs 08/26/20 [Rx Last Taken Unknown] cholecalciferol (vitamin D3) 1,250 mcg (50,000 unit) capsule 1,250 mcg PO QWEEK 09/30/21 [History Last Taken Unknown] cyanocobalamin (vitamin B-12) 1,000 mcg tablet 1,000 mcg PO DAILY 09/30/21 [History Last Taken Unknown] metoprolol tartrate 50 mg tablet 50 mg PO BID 09/30/21 [History Last Taken Unknown] omeprazole 40 mg capsule,delayed release 40 mg PO DAILY 09/30/21 [History Last Taken Unknown] oxybutynin chloride 10 mg tablet,extended release 24 hr 10 mg PO BID 09/30/21 [History Last Taken Unknown] acetaminophen 500 mg capsule 1,000 mg PO TID PRN pain 12/23/21 [History Last Taken Unknown] melatonin 3 mg tablet 6 mg PO HS PRN 12/23/21 [History Last Taken Unknown] amlodipine 5 mg tablet 10 mg PO DAILY 06/19/22 [History Last Taken Unknown] apixaban 2.5 mg tablet (Eliquis) 2.5 mg PO BID 06/19/22 [History Last Taken Unknown] sertraline 50 mg tablet 75 mg PO DAILY 06/19/22 [History Last Taken Unknown] Allergy/AdvReac Type Severity Reaction Status Date / Time paroxetine HCl [From Paxil] AdvReac Mild Nausea Verified 06/19/22 08:16 rosuvastatin calcium AdvReac Mild Nausea Verified 06/19/22 08:16 [From Crestor] simvastatin [From Zocor] AdvReac Mild Nausea Verified 06/19/22 08:16 Family History Brother Heart disease Father Myocardial infarction Other Clotting disorder Surgical History History of bladder suspension procedure History of hernia repair History of partial hysterectomy History of thoracic aortic aneurysm repair (~06/22/06) Social History housing: assisted living facility Smoking Status: Never smoker second hand exposure: No alcohol intake: never substance use type: does not use caffeine: Yes Type: carbonated beverages Number of servings: 2 dia/anabaptism: Pentecostalism seatbelt use: always do you feel safe at home: Yes ROS ROS Narrative Patient gets dizzy when she stands up. States she has been eating and drinking well as of late. All review of systems were negative except as mentioned above in the history of present illness and the other review of systems. Vital Signs Vital Signs Vital Signs: 09/24/22 04:31 09/24/22 04:38 09/24/22 06:30 Temperature 37.1 C Temperature Source Oral Pulse Rate 72 76 Respiratory Rate 16 16 Respiratory Effort Normal Respiratory Depth Normal Respiratory Pattern Normal Blood Pressure 139/55 H 105/58 L Blood Pressure Mean 83 73 Pulse Ox 98 95 94 Oxygen Delivery Method Room Air Room Air Room Air 09/24/22 07:24 Temperature Temperature Source Pulse Rate Respiratory Rate 16 Respiratory Effort Respiratory Depth Respiratory Pattern Blood Pressure Blood Pressure Mean Pulse Ox Oxygen Delivery Method Weight Weight: 76 kg Body Mass Index (BMI) 30.6 Physical Exam Const alert and no apparent distress HEENT HEENT Narrative: Stapled laceration on the left side of her head. Resp normal respiratory effort, no retractions, no use of accessory muscles and clear to auscultation bilaterally Cardio regular rate, regular rhythm, S1 normal heart sound and S2 normal heart sound GI normal to inspection, nondistended, normoactive bowel sounds and soft to palpation Extremity normal to inspection and no clubbing, cyanosis or edema Results Lab / Micro Data Result Diagrams: 09/24/22 07:20 09/24/22 07:20 Labs: Laboratory Results - last 24 hr 09/24/22 04:45: PT 14.7, INR 1.2 09/24/22 07:20: WBC 8.2, RBC 3.60 L, Hgb 10.8 L, Hct 33.1 L, MCV 91.9, MCH 30.0, MCHC 32.6, RDW Std Deviation 44.1 H, RDW Coeff of [place]ena 13.1, Plt Count 211, MPV 8.6, Immature Gran % (Auto) 0.600, Neut % (Auto) 78.2 H, Lymph % (Auto) 12.6 L, [place] % (Auto) 6.1, Eos % (Auto) 2.1, Baso % (Auto) 0.4, Absolute Neuts (auto) 6 .4, Absolute Lymphs (auto) 1.03, Nucleated RBC % 0 09/24/22 07:20: Sodium 134 L, Potassium 4.3, Chloride 102, Carbon Dioxide 24.0, Anion Gap 8, BUN 32 H, Creatinine 1.58 H, Estim Creat Clear Calc 20.59, Est GFR (MDRD) Af Amer 40 L, Est GFR (MDRD) Non-Af 33 L, BUN/Creatinine Ratio 20.3 H, Glucose 107 H, Calcium 9.1 09/24/22 08:35: Urine Color Yellow, Urine Clarity Clear, Urine pH 6.0, Ur Spe cific [place] 1.010, Urine Protein Negative, Urine Glucose (UA) Normal, Urine Ketones Negative, Urine Occult Blood 10 H, Urine Nitrite Negative, Urine Bilirubin Negative, Urine Urobilinogen Normal, Ur Leukocyte Esterase 500 H, Urine RBC 0 SEEN, Urine WBC 10-25 SEEN, Ur Squamous Epith Cells 0 SEEN, Urine Bacteria 1+, Urine Mucus 0 SEEN Radiology Impression Brain CT 09/24/22 04:36 IMPRESSION: No intracranial hemorrhage or depressed calvarial fracture. Electronically Signed: Farhat Faith MD at 5:15 EDT , Cervical Spine CT 09/24/22 04:36 IMPRESSION: No acute fracture or subluxation. 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 Electronically Signed: Farhat Faith MD at 5:22 EDT , Assessment & Plan Assessment/Plan (1) Debility: PLAN: Has been progressive according the patient's sons, bedside. PT OT evaluate and treat Case management to assist with disposition unclear if [facility] would be able to increase needs for the patient at this time of the patient will require going to a detention facility upon discharge. Son states that the patient has recement treated for urinary tract infection on . Urinalysis here appears to be unremarkable. (2) Laceration of scalp: PLAN: Sierra placed in the emergency room on the Patient will need to follow-up about 7 to 10 days to have those removed (3) Pulmonary emboli: QUALIFIERS: Pulmonary embolism type: unspecified Chronicity: unspecified Acute cor pulmonale presence: without acute cor pulmonale Qualified Code(s): I26.99 - Other pulmonary embolism without acute cor pulmonale PLAN: Recurrent according to patient signs Patient is on anticoagulation with apixaban We will hold the apixaban for today but resume that tomorrow in light of the laceration Patient has had numerous falls where she has been bruised up and has hit the right side of her head in the past. There is occurred about 6 months ago and a year ago, respectively. But given the recurrent nature of her PEs, would feel that it be most prudent to continue with the apixaban. PLAN: Plan Chronic conditions * Hypertension continue with lisinopril and metoprolol * Hyperlipidemia: Continue with statin * Dementia: Discussed with the patient's son that patient may be at risk for delirium to her being in the hospital. We will try to utilize techniques to reorient her with trying to avoid chemical restraints. * Depression: Continue with sertraline VTE prophylaxis: Not indicated as patient will be resumed on her apixaban on the . CODE STATUS: Addressed with the patient and her family. Patient to be full CODE STATUS at this time. Charges/Coding Visit Charges Inpatient E&M: 17043 Init Hosp L2
[2022-09-24] MEDS: Tolterodine Tartrate 2 MG CAP.SA PO (12:46)
[2022-09-24] MEDS: Sertraline 100 MG Tablet PO (12:47)
[2022-09-24] MEDS: Pantoprazole Sodium 40 MG Tablet PO (12:47)
[2022-09-24] MEDS: Acetaminophen 500 MG Tablet 1000 MG PO (19:57)
[2022-09-24] MEDS: 0.9% Saline Lock 10 ML Syringe IV (20:05)
[2022-09-24] MEDS: 0.9% Normal Saline 1,000 ML 75 ML IV (20:05)
[2022-09-24] MEDS: Lisinopril 20 MG Tablet PO (22:03)
[2022-09-24] MEDS: Pravastatin 20 MG Tablet PO (22:03)
[2022-09-24] MEDS: Metoprolol Tartrate 50 MG Tablet PO (22:03)
[2022-09-25 02:14] VITALS: BP 117/53; PULSE 70; RESP 18; TEMP 36.8; O2SAT 96
[2022-09-25 06:15] VITALS: BP 115/51; BP 119/70; BP 122/62; PULSE 69; PULSE 70; PULSE 80
[2022-09-25 07:42] VITALS: BP 119/60; PULSE 63; RESP 16; TEMP 36.8; O2SAT 96
[2022-09-25] MEDS: Cyanocobalamin 500 MCG Tablet 1000 MCG PO (07:49)
--- NOTE | 2022-09-25 08:53 | CASEMGMT ---
Discharge Planning Patient is from [facility]. Updates sent. Estrella Zamudio
[2022-09-25 09:26] VITALS: PULSE 63
[2022-09-25] MEDS: Sertraline 100 MG Tablet PO (09:26)
[2022-09-25] MEDS: Metoprolol Tartrate 50 MG Tablet PO (09:26)
[2022-09-25] MEDS: amLODIPine 10 MG Tablet PO (09:27)
[2022-09-25] MEDS: Pantoprazole Sodium 40 MG Tablet PO (09:27)
[2022-09-25] MEDS: Lisinopril 20 MG Tablet PO (09:27)
[2022-09-25] MEDS: Tolterodine Tartrate 2 MG CAP.SA PO (09:27)
[2022-09-25] MEDS: APIXABAN 2.5 MG TABLET (WCH) PO (09:27)
--- NOTE | 2022-09-25 09:42 | CASEMGMT ---
Social Work SW in to pt room. Introduced self and role at the hospital. Pt resting comfortably in bed, pt son sitting in chair bedside the bed. Family asking questions about process for getting skilled therapy. JUANY explained [facility] therapy team will evaluate pt today and then if ongoing therapy is recommended a referral can be sent to SNF of famliy choice. Pt shared from [facility] and this would be choice for skilled care if necessary. A list of SNF providers including quality and resource use data consistent with the patient?s preferred geographic region, medical needs, and insurance network from [facility] was offered. Pt and family declined. JUANY updated Estrella D/c front end assistant, to [facility] of return to either [place] side or skilled side. JUANY inquired about CM and pt son confirmed pt does have CM but not aware of CM name. SW called , unable to reach anyone. Left message requesting a call back. PLAN: Return to [facility] (skilled vs. AL) DESIREE Luis
--- NOTE | 2022-09-25 11:25 | PCM.DC.SUM ---
Providers Date of Admission: 09/24/22 Date of Discharge: 09/25/22 Primary Care Physician: Dr. Yohannes Acosta DO Reason For Visit: FALL Diagnosis Discharge Diagnosis (1) Debility: Status: Acute Code(s): R53.81 - Other malaise (2) Laceration of scalp: Status: Acute Code(s): S01.01XA - Laceration without foreign body of scalp, initial encounter (3) Pulmonary emboli: Status: Chronic Code(s): I26.99 - Other pulmonary embolism without acute cor pulmonale Qualifiers: Pulmonary embolism type: unspecified Chronicity: unspecified Acute cor pulmonale presence: without acute cor pulmonale Qualified Code(s): I26.99 - Other pulmonary embolism without acute cor pulmonale Medications at Discharge Home Medications cholecalciferol (vitamin D3) 1,250 mcg (50,000 unit) capsule 1,250 mcg PO FR SUPPLEMENT 09/30/21 cyanocobalamin (vitamin B-12) 1,000 mcg tablet 1,000 mcg PO DAILY SUPPLEMENT 09/30/21 metoprolol tartrate 50 mg tablet 50 mg PO BID HEART 09/30/21 omeprazole 40 mg capsule,delayed release 40 mg PO DAILY GERD 09/30/21 oxybutynin chloride 10 mg tablet,extended release 24 hr 10 mg PO BID OAB 09/30/21 acetaminophen 500 mg capsule 1,000 mg PO TID PRN pain 12/23/21 melatonin 3 mg tablet 6 mg PO QHS SLEEP 12/23/21 apixaban 2.5 mg tablet (Eliquis) 2.5 mg PO BID BLOOD THINNER 06/19/22 amlodipine 10 mg tablet 10 mg PO DAILY BP 09/24/22 lisinopril 20 mg tablet 20 mg PO BID BP 09/24/22 memantine 10 mg tablet 10 mg PO BID MEMORY 09/24/22 nystatin 100,000 unit/gram topical powder (Nystop) 1 applic topical 4X/DAY PRN Skin Irritation 09/24/22 pravastatin 20 mg tablet 20 mg PO DAILY CHOLESTEROL 09/24/22 sertraline 100 mg tablet 100 mg PO DAILY DEPRESSION 09/24/22 sulfamethoxazole 800 mg-trimethoprim 160 mg tablet 1 tab PO BID ANTIBIOTIC 09/24/22 wheat dextrin 1 tsp PO/SL DAILY SUPPLEMENT 09/24/22 Hospital Course Operations None Procedures - (Laceration of scalp stapled in the emergency department/CT brain/CT cervical spine) Summary of Care Provided Minutes Spent on Discharge: 28 Hospital Course: Mrs. Leal is an 87-year-old white female who presented after a fall which occurred at her assisted living facility. The patient was getting up to go to the restroom and fell. She hit her head on the closet door frame on the left side and suffered a laceration that required stapling with 10 sierra by the emergency department. CT of the head and cervical spine were both unremarkable for any acute findings upon presentation. The emergency department tried to get the patient up but she was unsteady on her feet. They reach out to [facility] to see if they can get more services for her there but no social scientist or case management brand representative were on for the weekend and therefore she was admitted to the hospital for further care. Laboratory data were all unremarkable at the time of admission. She was seen by physical and Occupational Therapy and they recommended ongoing therapy in the form of home health care however did not feel that she required admission in the skilled facility at this time. Case management set up home health care and she was able to be discharged home in stable condition on 09/25/2022 back to [facility]. She is to have her sierra removed in the next 10 days and this was placed on her discharge paperwork. No medication changes were made during her hospital course. She is to follow-up with her primary care physician within the next 1 to 2 weeks. Discharge diagnoses: Mechanical fall Laceration of scalp History of pulmonary embolus Hypertension Hyperlipidemia Depression Dementia Vitamin D deficiency GERD Urinary incontinence Physical Exam Const alert, no apparent distress, average body habitus and well nourished Constitutional Narrative: Elderly white female sitting up in bed, son at bedside, patient appears comfortable and nontoxic General Appearance: cooperative, comfortable, well kempt and well developed Orientation / Consciousness: awake and oriented to person HEENT normocephalic HEENT Narrative: Laceration on head noted and appears to be healing, moderate hearing loss, dentition is poor, no thrush Eyes PERRL, EOMs intact bilaterally and conjunctivae normal Eyes Narrative: No scleral icterus Resp normal respiratory effort, no retractions, no use of accessory muscles and clear to auscultation bilaterally Auscultation: Negative for rales, rhonchi or wheezes Cardio regular rate, regular rhythm, S1 normal heart sound, S2 normal heart sound, no murmurs, no rub, no gallops and no clicks GI normal to inspection, nondistended, normoactive bowel sounds, soft to palpation and non-tender Extremity no clubbing, cyanosis or edema Extremity Narrative: 2+ pedal pulses Neuro oriented x3, CN's II-XII intact bilaterally, moves all extremities and no focal motor deficits Neuro Narrative: Generalized weakness no red with no focal deficits Speech: speech normal Psych Psych Narrative: Affect is mildly flat but eye contact was good Weight / BMI Weight Weight: 72.7 kg Body Mass Index (BMI) 27.5 ABG / Lab / Microbiology Data Result Diagrams: 09/24/22 07:20 09/24/22 07:20 D/C Instructions Discharge Diet: Low fat / Low cholesterol Discharge Activity: Return to Normal Activity Meaningful Use Info Meaningful Use Diagnoses (Choose all that apply): None applicable Discharge Plan Admission Admit Date/Time: 09/24/22 09:47 Primary Reason for Your Visit: Fall Attending Provider: Erin Turner Primary Care Provider: Yohannes Acosta Consulting Providers: Scottie Black Instructions Patient Instructions: ED Head Injury (Adult), ED Laceration Scalp Stitches or Sierra Additional Instructions / Restrictions: 1. CT scan head and neck are negative. 10 sierra placed. Wound care as discussed. Sierra to be removed in 10 days. 2. You were seen by physical and Occupational Therapy during her hospital course and they felt you did not need skilled intervention and placement in a nursing facility at this time however did recommend ongoing home health care services at discharge for physical and Occupational Therapy as well as nursing. Discharge Orders/Prescriptions Prescriptions: Continued melatonin 3 mg tablet 6 mg PO QHS acetaminophen 500 mg capsule 1,000 mg PO TID PRN (Reason: pain) metoprolol tartrate 50 mg tablet 50 mg PO BID omeprazole 40 mg capsule,delayed release(DR/EC) 40 mg PO DAILY oxybutynin chloride 10 mg tablet extended release 24hr 10 mg PO BID cyanocobalamin (vitamin B-12) 1,000 mcg tablet 1,000 mcg PO DAILY cholecalciferol (vitamin D3) 1,250 mcg (50,000 unit) capsule 1,250 mcg PO FR Eliquis 2.5 mg tablet 2.5 mg PO BID sertraline 100 mg tablet 100 mg PO DAILY sulfamethoxazole-trimethoprim 800-160 mg tablet 1 tab PO BID amlodipine 10 mg tablet 10 mg PO DAILY nystatin [Nystop] 100,000 unit/gram Powder 1 applic TOPICAL 4X/DAY PRN (Reason: Skin Irritation) memantine 10 mg tablet 10 mg PO BID wheat dextrin powder 1 tsp PO/SL DAILY lisinopril 20 mg tablet 20 mg PO BID pravastatin 20 mg tablet 20 mg PO DAILY Referrals / Follow Up: Yohannes Acosta DO [Primary Care Provider] - 10 Day for suture removal Disposition Disposition (needs filled in before D/C Order can be placed): Assisted Living Charges/Coding Visit Charges Inpatient E&M: 41588 Disch Hosp
--- NOTE | 2022-09-25 11:49 | CASEMGMT ---
Addendum entered by Rosette Merchant 09/25/22 12:44: Pt has a FWW, rollator, toilet riser and shower seat at home. Pt denies any further homegoing needs. Addendum entered by Rosette Merchant 09/25/22 12:39: Pt chose [facility] followed by Connor. KENRICK Braga at [facility], pt accepted for SOC on Sunday. Pt and family aware. Original Note: Discussed pt progress with therapy with therapists. OXANA BHATT into pt room, pt with visitors at bedside. Discussed HHC with pt. Plan for PT, OT and [employer]. Patient was provided a list of HHC providers including quality and resource use data and consistent with the patient?s preferred geographic region, medical needs, and insurance network were provided from the [facility] Guide. Pt to review and OXANA BHATT to check back. OXANA BHATT discussed CEE form with patient. OXANA BHATT explained CEE form, patient voiced understanding. Pt signed form and filed in chart. Pt provided with a copy of signed CEE form. Patient had no further questions or concerns at this time.
--- NOTE | 2022-09-25 11:50 | PHA.DC.MR ---
Pharmacy Service has performed discharge medication reconciliation for this patient. The patient's discharge medication list was reviewed for discrepancies and discrepancies were resolved. Home Medications cholecalciferol (vitamin D3) 1,250 mcg (50,000 unit) capsule 1,250 mcg PO FR SUPPLEMENT 09/30/21 cyanocobalamin (vitamin B-12) 1,000 mcg tablet 1,000 mcg PO DAILY SUPPLEMENT 09/30/21 metoprolol tartrate 50 mg tablet 50 mg PO BID HEART 09/30/21 omeprazole 40 mg capsule,delayed release 40 mg PO DAILY GERD 09/30/21 oxybutynin chloride 10 mg tablet,extended release 24 hr 10 mg PO BID OAB 09/30/21 acetaminophen 500 mg capsule 1,000 mg PO TID PRN pain 12/23/21 melatonin 3 mg tablet 6 mg PO QHS SLEEP 12/23/21 apixaban 2.5 mg tablet (Eliquis) 2.5 mg PO BID BLOOD THINNER 06/19/22 amlodipine 10 mg tablet 10 mg PO DAILY BP 09/24/22 lisinopril 20 mg tablet 20 mg PO BID BP 09/24/22 memantine 10 mg tablet 10 mg PO BID MEMORY 09/24/22 nystatin 100,000 unit/gram topical powder (Nystop) 1 applic topical 4X/DAY PRN Skin Irritation 09/24/22 pravastatin 20 mg tablet 20 mg PO DAILY CHOLESTEROL 09/24/22 sertraline 100 mg tablet 100 mg PO DAILY DEPRESSION 09/24/22 sulfamethoxazole 800 mg-trimethoprim 160 mg tablet 1 tab PO BID ANTIBIOTIC 09/24/22 wheat dextrin 1 tsp PO/SL DAILY SUPPLEMENT 09/24/22
== END 2022-09-25 13:30 | disposition home health service (06) ==
LOC: ED 09:51 → MS3 10:08
PROVIDERS: Emergency Provider Emergency Medicine; PCP Student in an Organized Health Care Education/Training Program; Visit Provider Internal Medicine
DX: R53.81 Other malaise (principal); I26.99 Other pulmonary embolism without acute cor pulmonale; F03.90 Unspecified dementia, unspecified severity, without behavioral disturbance, psychotic disturbance, mood disturbance, and anxiety; E10.9 Type 1 diabetes mellitus without complications; S01.01XA Laceration without foreign body of scalp, initial encounter; I25.10 Atherosclerotic heart disease of native coronary artery without angina pectoris; W01.0XXA Fall on same level from slipping, tripping and stumbling without subsequent striking against object, initial encounter; F32.A Depression, unspecified; R53.1 Weakness; Z86.16 Personal history of COVID-19; R32 Unspecified urinary incontinence; E78.5 Hyperlipidemia, unspecified; I10 Essential (primary) hypertension; E55.9 Vitamin D deficiency, unspecified; K21.9 Gastro-esophageal reflux disease without esophagitis; Z23 Encounter for immunization; Z86.711 Personal history of pulmonary embolism; Z79.01 Long term (current) use of anticoagulants; I25.2 Old myocardial infarction; Z79.899 Other long term (current) drug therapy
CPT/HCPCS: 12002; 70450; 72125; 80048; 81001; 85025; 85610; 90715; 96360; 96361; 97162; 97166; 99221; 99285; J7030; A4216; G0378

== ENCOUNTER 2022-09-28 23:29 | Observation (INO) | payer MEDICARE, MEDICAID, SELFPAY ==
[2022-09-28 23:30] VITALS: BP 113/43; PULSE 66; RESP 16; TEMP 36.5; O2SAT 96
[2022-09-29] VITALS (10 sets, daily range): BP systolic 101–145; BP diastolic 47–58; PULSE 65–74; RESP 15–18; TEMP 36.5–36.8; O2SAT 94–97; BMI 30.7; BMI 29.6
--- NOTE | 2022-09-29 00:20 | ED.RN ---
WAS TOLD BY EMS PT NOT ON BLOOD THINNERS,WAS DOING MED LIST AND NOTICED SHE WAS ON BLOOD THINNERS. PT'S FAMILY CONFIRMED THAT.PT ALERT AND TALKING.
--- NOTE | 2022-09-29 01:41 | CT_ITS ---
INDICATION: trauma EXAMINATION: CT BRAIN - CT Head or Brain W/O Contrast Injection TECHNIQUE: Multiple axial images were obtained of the head without intravenous contrast. A radiation dose optimization technique was used for this scan. IV Contrast dosage and agent: None. RADIATION DOSAGE (If Supplied By Facility): CTDIvol = ( 44.99 ) mGy, DLP = ( 779.24 ) mGycm COMPARISON: FINDINGS: BRAIN PARENCHYMA: No intra- or extra-axial hemorrhage. No evidence of acute infarct. No intracranial mass or mass effect. There is preservation of the chaney/white matter interface. Posterior fossa structures are unremarkable. CSF SPACES: Appropriate for age. No hydrocephalus. Basal cisterns are patent. CALVARIUM, SKULL BASE, PARANASAL SINUSES AND MASTOID AIR CELLS: Clear. No discrete lytic or blastic abnormalities. ORBITS: Both globes, extraocular muscles, optic nerves and retrobulbar fat appear unremarkable. ASPECTS Score for Acute Strokes: 10 CT/Brain/Head without Contrast IMPRESSION: Negative Brain CT without contrast. Electronically Signed: Jamshid Mackenzie MD at 3:07 EDT ,
--- NOTE | 2022-09-29 02:21 | EDS_ITS ---
HPI HPI - Fall History of Present Illness Chief Complaint: Fall Informant: patient and family Narrative Narrative: 87-year-old female with history of dementia in assisted living had a fall prior to being transported here. From what she can remember, she states that she was using her walker and lost her balance and fell. She does not think she hit her head but is not 100% sure. She was seen here 5 days ago for a fall where she hit her head and received ania to a laceration on her left scalp, she states that is not bothering her right now. She states she hurts all over since this fall, mostly in her legs, nonfocal. She has not tried to bear weight or walk since then. After her initial fall she was admitted to the hospital and was diagnosed with a urinary tract infection and currently is on Bactrim for that. She is also on apixaban. Family states she has seen neurology for dementia, and they do not know if she has vascular, Lewy body, or a different type but they are pretty sure is not Alzheimer's from what they remember. 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 Atrial premature depolarization Constipation COVID-19 Dementia Dizziness and giddiness Epigastric pain Essential hypertension Hyperlipidemia nursing home current use of anticoagulant nursing home use of drug Nonspecific abnormal unspecified cardiovascular function study NSTEMI (non-ST elevated myocardial infarction) Old myocardial infarction Palpitations Precordial chest pain Pulmonary emboli Thyroid nodule Type 1 diabetes mellitus without complications Ventricular premature depolarization Home Medications cholecalciferol (vitamin D3) 1,250 mcg (50,000 unit) capsule 1,250 mcg PO FR SUPPLEMENT 09/30/21 [History Last Taken 09/22/22] cyanocobalamin (vitamin B-12) 1,000 mcg tablet 1,000 mcg PO DAILY SUPPLEMENT 09/30/21 [History Last Taken 09/23/22] metoprolol tartrate 50 mg tablet 50 mg PO BID HEART 09/30/21 [History Last Taken 09/23/22] omeprazole 40 mg capsule,delayed release 40 mg PO DAILY GERD 09/30/21 [History Last Taken 09/23/22] oxybutynin chloride 10 mg tablet,extended release 24 hr 10 mg PO BID OAB 09/30/21 [History Last Taken 09/23/22] acetaminophen 500 mg capsule 1,000 mg PO TID PRN pain 12/23/21 [History Last Taken 09/23/22] melatonin 3 mg tablet 6 mg PO QHS SLEEP 12/23/21 [History Last Taken 09/23/22] apixaban 2.5 mg tablet (Eliquis) 2.5 mg PO BID BLOOD THINNER 06/19/22 [History Last Taken 09/23/22] amlodipine 10 mg tablet 10 mg PO DAILY BP 09/24/22 [History Last Taken 09/23/22] lisinopril 20 mg tablet 20 mg PO BID BP 09/24/22 [History Last Taken 09/23/22] memantine 10 mg tablet 10 mg PO BID MEMORY 09/24/22 [History Last Taken 09/23/22] nystatin 100,000 unit/gram topical powder (Nystop) 1 applic topical 4X/DAY PRN Skin Irritation 09/24/22 [History Last Taken Unknown] pravastatin 20 mg tablet 20 mg PO DAILY CHOLESTEROL 09/24/22 [History Last Taken 09/23/22] sertraline 100 mg tablet 100 mg PO DAILY DEPRESSION 09/24/22 [History Last Taken 09/23/22] Allergy/AdvReac Type Severity Reaction Status Date / Time paroxetine HCl [From Paxil] AdvReac Mild Nausea Verified 09/28/22 23:33 rosuvastatin calcium AdvReac Mild Nausea Verified 09/28/22 23:33 [From Crestor] simvastatin [From Zocor] AdvReac Mild Nausea Verified 09/28/22 23:33 Family History Brother Heart disease Father Myocardial infarction Other Clotting disorder Surgical History History of bladder suspension procedure History of hernia repair History of partial hysterectomy History of thoracic aortic aneurysm repair (~06/22/06) Social History housing: assisted living facility Smoking Status: Never smoker second hand exposure: No alcohol intake: never substance use type: does not use caffeine: Yes Type: carbonated beverages Number of servings: 2 dia/roman catholic: Muslim seatbelt use: always do you feel safe at home: Yes ROS ROS ED Review of Systems ROS Unobtainable: due to mental condition, due to mental status and other Details: ROS limited by dementia but not unobtainable Constitutional Constitutional ED: Denies chills or fever(s) Eyes Eyes: Denies change in vision or diplopia ENT ENT ED: Denies ear pain, epistaxis or facial pain Cardiovascular Cardiovascular: Denies chest pain Respiratory/Chest Respiratory/Chest: Denies cough or dyspnea Gastrointestinal Gastrointestinal: Denies abdominal pain, nausea or vomiting Musculoskeletal Musculoskeletal: Reports extremity pain; Denies back pain or neck pain Integumentary Denies abscess or Abrasions Neurologic Neurologic: Reports confusion; Denies headache(s), paresthesias or weakness EXAM Physical Exam Const Vital Signs: 09/28/22 23:30 09/29/22 01:45 09/29/22 01:45 Temperature 97.7 F L Temperature Source Temporal Pulse Rate 66 65 Respiratory Rate 16 18 Respiratory Effort Normal Non-Labored Respiratory Depth Normal Respiratory Pattern Normal Blood Pressure 113/43 L 123/52 H Blood Pressure Mean 66 75 Pulse Ox 96 95 Oxygen Delivery Method Room Air Room Air Room Air 09/29/22 03:17 Temperature Temperature Source Pulse Rate 66 Respiratory Rate 18 Respiratory Effort Respiratory Depth Respiratory Pattern Blood Pressure 124/55 H Blood Pressure Mean 78 Pulse Ox 97 Oxygen Delivery Method Room Air Positive well nourished and well developed General Appearance ED: well developed and NAD HEENT Reports TM's clear and nasal mucous membranes and turbinates normal HEENT Narrative: Well-healing laceration with ania intact left posterior high parietal scalp, no dehiscence, signs of infection, tenderness, bleeding. atraumatic Face and Sinus: Negative for facial tenderness Tympanic Membrane ED: Yes TM's clear Eyes PERRL and EOMs intact bilaterally Visual Acuity: other Other Details: no entrapment or pain with extraocular movements Neck full ROM and supple General: Negative for tenderness Chest Wall inspection of chest normal and palpation of chest normal Chest: symmetrical chest wall rise; Negative for crepitus or tenderness Resp normal respiratory effort and clear to auscultation bilaterally Percussion: other equal BS bilat Cardio no murmurs Rate: regular rate Rhythm: regular rhythm GI normal to inspection, nondistended, normoactive bowel sounds, soft to palpation and non-tender Back/Spine normal ROM Cervical Spine: Negative for cervical spine tenderness Thoracic Spine / Upper Back: Negative for thoracic spinal tenderness Lumbar Spine / Lower Back: Negative for lumbar spinal tenderness Extremity normal to inspection and full ROM Extremity Narrative: Full passive and active range of motion throughout all joints of all 4 extremities, no bony tenderness anywhere. General Extremety ED: Negative for tenderness Neuro CN's II-XII intact bilaterally, moves all extremities, no focal motor deficits and no sensory deficits noted Neuro Narrative: Disoriented but oriented to person and at baseline per family Alba Coma Scale: document GCS findings Spontaneous Obeys Commands Confused (at baseline per family) 14 Sensorium / Orientation: awake and alert Psych mental status grossly normal and thought process normal Skin Skin Narrative: healing scalp laceration Lesions: no lesions Rashes: no rashes MDM MDM MDM Narrative Medical decision making narrative: I had nursing get the patient out of bed with assistance, and have her bear weight and walk. She had no pain. There are no bruises or evidence of acute injury to either of her lower extremities. Reassuring that she did not have any new fractures, we sent her for CT of the head again not knowing if she hit it or not during this fall. I reviewed the images, they do not appear to show any signs of an acute injury, radiology read it as such as well, and I agree with their interpretation. Patient is clinically and hemodynamically stable and I do not think she needs any further emergent medical work-up. I reviewed outpatient cultures, and labs, and obtained new ones. She does appear to have developed RACHID, presumably from prerenal azotemia, possibly from lack of fluid intake; IVF begun. Her urine culture from the recent sample earlier in the week shows pansensitive E. coli, she was treated with Bactrim which is appropriate so I do not think that needs to be repeated. Family is concerned that her gait is becoming more unsteady, and they do not want her to go back to assisted living for safety reasons, I do not think that is unreasonable. She is not in an Alzheimer's/memory unit. It currently is 3 AM, we do not have social work available nor did we ever since she arrived here, and it is unknown if her i nsurance will cover her to go to a memory unit or not. Family states that she has a very unsteady gait, even when using her walker. I discussed with hospitalist for inpatient observation. However, it appears that on further inspection of her old labs, he thinks this is most likely mild dehydration on progression of CKD, and therefore does not meet admission criteria. We will continue the IVF and observe the patient in the ED until the AM when social work can evaluate the patient for possible placement to a memory unit level of assisted living for increased safety for the patient. History & Record Review Additional record(s) reviewed:: Prior inpatient record and Prior labs Lab Data Attestation: I reviewed the patient's lab results. Labs: Laboratory Results - last 24 hr 09/29/22 09/29/22 03:10 03:10 WBC 7.0 RBC 3.16 L Hgb 9.4 L Hct 29.5 L MCV 93.4 MCH 29.7 MCHC 31.9 L RDW Std Deviation 46.0 H RDW Coeff of Beena 13.5 Plt Count 215 MPV 9.1 Immature Gran % (Auto) 0.400 Neut % (Auto) 69.6 Lymph % (Auto) 20.5 Mccracken % (Auto) 6.5 Eos % (Auto) 2.6 Baso % (Auto) 0.4 Absolute Neuts (auto) 4.9 Absolute Lymphs (auto) 1.43 Nucleated RBC % 0 Sodium 133 L Potassium 4.7 Chloride 107 Carbon Dioxide 24.0 Anion Gap 2 L BUN 44 H Creatinine 1.89 H Estim Creat Clear Calc 17.21 Est GFR (MDRD) Af Amer 33 L Est GFR (MDRD) Non-Af 27 L BUN/Creatinine Ratio 23.3 H Glucose 107 H Calcium 8.8 Radiography Diagnostic Testing: Clinical Impression(s) from Imaging Studies Brain CT 09/29/22 01:41 IMPRESSION: Negative Brain CT without contrast. Electronically Signed: Jamshid Mackenzie MD at 3:07 EDT , Procedures Other Procedures Procedure(s): Staple removal scalp laceration: 6 ania removed by myself without difficulty or complication, no dehiscence or significant bleeding or pain. Prepped with isopropanol before and after removal. Discharge Plan Triage Chief Complaint: Fall ED Provider: Jabari Ramirez Dx/Rx/DC Orders Clinical Impression: Recurrent falls, Debility, Mild dehydration Prescriptions: No Action melatonin 3 mg tablet 6 mg PO QHS acetaminophen 500 mg capsule 1,000 mg PO TID PRN (Reason: pain) metoprolol tartrate 50 mg tablet 50 mg PO BID omeprazole 40 mg capsule,delayed release(DR/EC) 40 mg PO DAILY oxybutynin chloride 10 mg tablet extended release 24hr 10 mg PO BID cyanocobalamin (vitamin B-12) 1,000 mcg tablet 1,000 mcg PO DAILY cholecalciferol (vitamin D3) 1,250 mcg (50,000 unit) capsule 1,250 mcg PO FR Eliquis 2.5 mg tablet 2.5 mg PO BID sertraline 100 mg tablet 100 mg PO DAILY amlodipine 10 mg tablet 10 mg PO DAILY nystatin [Nystop] 100,000 unit/gram Powder 1 applic TOPICAL 4X/DAY PRN (Reason: Skin Irritation) memantine 10 mg tablet 10 mg PO BID lisinopril 20 mg tablet 20 mg PO BID pravastatin 20 mg tablet 20 mg PO DAILY Primary Care Provider: Yohannes Acosta Referrals: Yohannes Acosta, DO [Primary Care Provider] -
[2022-09-29 03:28] LABS: Absolute Lymphocyte Count 1.43 X10^3/uL (0.83-4.51); Absolute Neutrophil Count 4.9 X10^3/uL (2.0-7.7); Basophil# 0.03 X10^3/uL; Basophil% 0.4 % (0-1); Eosinophil# 0.18 X10^3/uL; Eosinophils% 2.6 % (0-5); Hematocrit 29.5 % (37-47); Hemoglobin 9.4 g/dL (12.0-15.0); Lymphocyte # 1.43 X10^3/ul (0.83-4.51); Lymphocyte % 20.5 % (19-41); Mean Corp Hgb Conc 31.9 g/dL (32-36); Mean Corpuscular Hgb 29.7 pg (27.0-32.0); Mean Corpuscular Volume 93.4 fL (81-99); Mean Platelet Vol. 9.1 fl (6.2-12.0); Monocyte# 0.45 X10^3/uL; Monocyte% 6.5 % (0-10); NRBC Flagged by Analyzer 0 % (0-5); Neutrophil # 4.85 X10^3/uL (2.7-7.7); Neutrophil % 69.6 % (47-70); Platelet Count 215 K/mm3 (150-450); RBC Distribution Width CV 13.5 % (11.6-14.6); Red Blood Count 3.16 M/mm3 (4.2-5.4)
[2022-09-29 03:38] LABS: Anion Gap 2 (5-15); BUN 44 mg/dL (7-18); BUN/Creat Ratio 23.3 RATIO (10-20); Calcium,Total 8.8 mg/dL (8.5-10.1); Chloride 107 mmol/L (98-107); Creatinine, Serum 1.89 mg/dL (0.55-1.02); EST Glomerular Filtration Rate 27 mL/min (>60); Est Glom Filt Rate - Afr Amer 33 mL/min (>60); Estimated Creatinine Clearance 17.21 ml/min; Glucose 107 mg/dL (74-106); Potassium 4.7 mmol/L (3.5-5.1); Sodium Level 133 mmol/L (136-145)
--- NOTE | 2022-09-29 04:04 | HP.PCM.HOS_ITS ---
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 Nonspecific abnormal unspecified cardiovascular function study NSTEMI (non-ST elevated myocardial infarction) Old myocardial infarction Palpitations Precordial chest pain Pulmonary emboli Thyroid nodule Type 1 diabetes mellitus without complications Ventricular premature depolarization Home Medications cholecalciferol (vitamin D3) 1,250 mcg (50,000 unit) capsule 1,250 mcg PO FR SUPPLEMENT 09/30/21 [History Last Taken 09/22/22] cyanocobalamin (vitamin B-12) 1,000 mcg tablet 1,000 mcg PO DAILY SUPPLEMENT 09/30/21 [History Last Taken 09/23/22] metoprolol tartrate 50 mg tablet 50 mg PO BID HEART 09/30/21 [History Last Taken 09/23/22] omeprazole 40 mg capsule,delayed release 40 mg PO DAILY GERD 09/30/21 [History Last Taken 09/23/22] oxybutynin chloride 10 mg tablet,extended release 24 hr 10 mg PO BID OAB 09/30/21 [History Last Taken 09/23/22] acetaminophen 500 mg capsule 1,000 mg PO TID PRN pain 12/23/21 [History Last Taken 09/23/22] melatonin 3 mg tablet 6 mg PO QHS SLEEP 12/23/21 [History Last Taken 09/23/22] apixaban 2.5 mg tablet (Eliquis) 2.5 mg PO BID BLOOD THINNER 06/19/22 [History Last Taken 09/23/22] amlodipine 10 mg tablet 10 mg PO DAILY BP 09/24/22 [History Last Taken 09/23/22] lisinopril 20 mg tablet 20 mg PO BID BP 09/24/22 [History Last Taken 09/23/22] memantine 10 mg tablet 10 mg PO BID MEMORY 09/24/22 [History Last Taken 09/23/22] nystatin 100,000 unit/gram topical powder (Nystop) 1 applic topical 4X/DAY PRN Skin Irritation 09/24/22 [History Last Taken Unknown] pravastatin 20 mg tablet 20 mg PO DAILY CHOLESTEROL 09/24/22 [History Last Taken 09/23/22] sertraline 100 mg tablet 100 mg PO DAILY DEPRESSION 09/24/22 [History Last Taken 09/23/22] Allergy/AdvReac Type Severity Reaction Status Date / Time paroxetine HCl [From Paxil] AdvReac Mild Nausea Verified 09/28/22 23:33 rosuvastatin calcium AdvReac Mild Nausea Verified 09/28/22 23:33 [From Crestor] simvastatin [From Zocor] AdvReac Mild Nausea Verified 09/28/22 23:33 Family History Brother Heart disease Father Myocardial infarction Other Clotting disorder Surgical History History of bladder suspension procedure History of hernia repair History of partial hysterectomy History of thoracic aortic aneurysm repair (~06/22/06) Social History housing: assisted living facility Smoking Status: Never smoker second hand exposure: No alcohol intake: never substance use type: does not use caffeine: Yes Type: carbonated beverages Number of servings: 2 dia/orthodoxy: Judaism seatbelt use: always do you feel safe at home: Yes Vital Signs Vital Signs Vital Signs: 09/28/22 23:30 09/29/22 01:45 09/29/22 01:45 Temperature 97.7 F L Temperature Source Temporal Pulse Rate 66 65 Respiratory Rate 16 18 Respiratory Effort Normal Non-Labored Respiratory Depth Normal Respiratory Pattern Normal Blood Pressure 113/43 L 123/52 H Blood Pressure Mean 66 75 Pulse Ox 96 95 Oxygen Delivery Method Room Air Room Air Room Air 09/29/22 03:17 Temperature Temperature Source Pulse Rate 66 Respiratory Rate 18 Respiratory Effort Respiratory Depth Respiratory Pattern Blood Pressure 124/55 H Blood Pressure Mean 78 Pulse Ox 97 Oxygen Delivery Method Room Air Weight Weight: 75.8 kg Body Mass Index (BMI) 30.7 Results Lab / Micro Data Result Diagrams: 09/29/22 03:10 09/29/22 03:10 Labs: Laboratory Results - last 24 hr 09/29/22 03:10: WBC 7.0, RBC 3.16 L, Hgb 9.4 L, Hct 29.5 L, MCV 93.4, MCH 29.7, MCHC 31.9 L, RDW Std Deviation 46.0 H, RDW Coeff of Beena 13.5, Plt Count 215, MPV 9.1, Immature Gran % (Auto) 0.400, Neut % (Auto) 69.6, Lymph % (Auto) 20.5, [place] % (Auto) 6.5, Eos % (Auto) 2.6, Baso % (Auto) 0.4, Absolute Neuts (auto) 4.9, Absolute Lymphs (auto) 1.43, Nucleated RBC % 0 09/29/22 03:10: Sodium 133 L, Potassium 4.7, Chloride 107, Carbon Dioxide 24.0, Anion Gap 2 L, BUN 44 H, Creatinine 1.89 H, Estim Creat Clear Calc 17.21, Est GFR (MDRD) Af Amer 33 L, Est GFR (MDRD) Non-Af 27 L, BUN/Creatinine Ratio 23.3 H , Glucose 107 H, Calcium 8.[address] 09/29/22 01:41 IMPRESSION: Negative Brain CT without contrast. Electronically Signed: Jamshid Mackenzie MD at 3:07 EDT ,
[2022-09-29] MEDS: 0.9% Normal Saline 1,000 ML 150 ML IV (04:28)
--- NOTE | 2022-09-29 11:18 | HP.PCM.HOS_ITS ---
HPI - General General Date of Admission: 09/29/22 Date of Service: 09/29/22 Chief Complaint: Fall HPI Narrative JUNO STEPHENSON, is a 87-year-old female with history of CKD, dementia, hypertension, PE, type 1 diabetes who was recently here for fall 09/24. She was discharged back to assisted living on 09/25 and represented 09/28 with another fall. On 09/28 at her assisted living facility she was using her walker and lost balance and fell. She had CT head with no acute abnormalities. Hospitalist consulted for admission for placement for failure to thrive. Patient seen in ED with family member at bedside, she is back to eat sandwich and reports that she has been feeling somewhat weak over the past month, family member queried if it could be the [place] as it has been uptitrated over this time.. She reports some left thigh pain after this fall but has no other pain complaints or complaints in general. 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 [facility] use of drug Nonspecific abnormal unspecified cardiovascular function study NSTEMI (non-ST elevated myocardial infarction) Old myocardial infarction Palpitations Precordial chest pain Pulmonary emboli Thyroid nodule Type 1 diabetes mellitus without complications Ventricular premature depolarization Home Medications cholecalciferol (vitamin D3) 1,250 mcg (50,000 unit) capsule 1,250 mcg PO FR SUPPLEMENT 09/30/21 [History Last Taken 09/22/22] cyanocobalamin (vitamin B-12) 1,000 mcg tablet 1,000 mcg PO DAILY SUPPLEMENT 09/30/21 [History Last Taken 09/23/22] metoprolol tartrate 50 mg tablet 50 mg PO BID HEART 09/30/21 [History Last Taken 09/23/22] omeprazole 40 mg capsule,delayed release 40 mg PO DAILY GERD 09/30/21 [History Last Taken 09/23/22] oxybutynin chloride 10 mg tablet,extended release 24 hr 10 mg PO BID OAB 09/30/21 [History Last Taken 09/23/22] acetaminophen 500 mg capsule 1,000 mg PO TID PRN pain 12/23/21 [History Last Taken 09/23/22] melatonin 3 mg tablet 6 mg PO QHS SLEEP 12/23/21 [History Last Taken 09/23/22] apixaban 2.5 mg tablet (Eliquis) 2.5 mg PO BID BLOOD THINNER 06/19/22 [History Last Taken 09/23/22] amlodipine 10 mg tablet 10 mg PO DAILY BP 09/24/22 [History Last Taken 09/23/22] lisinopril 20 mg tablet 20 mg PO BID BP 09/24/22 [History Last Taken 09/23/22] memantine 10 mg tablet 10 mg PO BID MEMORY 09/24/22 [History Last Taken 09/23/22] nystatin 100,000 unit/gram topical powder (Nystop) 1 applic topical 4X/DAY PRN Skin Irritation 09/24/22 [History Last Taken Unknown] pravastatin 20 mg tablet 20 mg PO DAILY CHOLESTEROL 09/24/22 [History Last Taken 09/23/22] sertraline 100 mg tablet 100 mg PO DAILY DEPRESSION 09/24/22 [History Last Taken 09/23/22] Allergy/AdvReac Type Severity Reaction Status Date / Time paroxetine HCl [From Paxil] AdvReac Mild Nausea Verified 09/28/22 23:33 rosuvastatin calcium AdvReac Mild Nausea Verified 09/28/22 23:33 [From Crestor] simvastatin [From Zocor] AdvReac Mild Nausea Verified 09/28/22 23:33 Family History Brother Heart disease Father Myocardial infarction Other Clotting disorder Surgical History History of bladder suspension procedure History of hernia repair History of partial hysterectomy History of thoracic aortic aneurysm repair (~06/22/06) Social History housing: assisted living facility Smoking Status: Never smoker second hand exposure: No alcohol intake: never substance use type: does not use caffeine: Yes Type: carbonated beverages Number of servings: 2 dia/jewish: Scientology seatbelt use: always do you feel safe at home: Yes ROS ROS Narrative General: Denies fever/chills HENT: Denies headache, denies stuffy nose, denies sore throat EYES: Denies changes in vision Resp: Denies cough, denies shortness of breath Cardiac: Denies chest pain GI: Denies abdominal pain, denies changes in bowel, denies nausea/vomiting : Denies changes in urination Extremity: Denies swelling MSK: Some general weakness, some left-sided thigh pain Neuro: Denies any numbness/tingling Heme: Denies any bleeding or bruising Skin: Denies rashes Psychiatric: No complaints voiced Vital Signs Vital Signs Vital Signs: 09/28/22 23:30 09/29/22 01:45 09/29/22 01:45 Temperature 97.7 F L Temperature Source Temporal Pulse Rate 66 65 Respiratory Rate 16 18 Respiratory Effort Normal Non-Labored Respiratory Depth Normal Respiratory Pattern Normal Blood Pressure 113/43 L 123/52 H Blood Pressure Mean 66 75 Pulse Ox 96 95 Oxygen Delivery Method Room Air Room Air Room Air 09/29/22 03:17 09/29/22 07:58 09/29/22 11:00 Temperature Temperature Source Pulse Rate 66 74 73 Respiratory Rate 18 16 16 Respiratory Effort Respiratory Depth Respiratory Pattern Blood Pressure 124/55 H 145/52 H 128/58 H Blood Pressure Mean 78 83 81 Pulse Ox 97 94 95 Oxygen Delivery Method Room Air Room Air Room Air Weight Weight: 75.8 kg Body Mass Index (BMI) 30.7 Physical Exam Narrative General: Alert, no apparent distress HEENT: Atraumatic, normocephalic Eyes: Anicteric, normal conjunctiva, extraocular movements grossly intact Neck: Supple Respiratory: Clear to auscultation bilaterally, normal respiratory effort Cardiovascular: Regular rate and rhythm GI: Soft, nontender, nondistended Extremities: No edema Musculoskeletal: Moving all extremities, moves left extremity slightly slower off bed due to feeling that makes her pain somewhat worse Neuro: No overt focal neurological deficits Skin: No rashes appreciated Psych: Cooperative Results Lab / Micro Data Result Diagrams: 09/29/22 03:10 09/29/22 03:10 Labs: Laboratory Results - last 24 hr 09/29/22 03:10: WBC 7.0, RBC 3.16 L, Hgb 9.4 L, Hct 29.5 L, MCV 93.4, MCH 29.7, MCHC 31.9 L, RDW Std Deviation 46.0 H, RDW Coeff of Beena 13.5, Plt Count 215, MPV 9.1, Immature Gran % (Auto) 0.400, Neut % (Auto) 69.6, Lymph % (Auto) 20.5, [place] % (Auto) 6.5, Eos % (Auto) 2.6, Baso % (Auto) 0.4, Absolute Neuts (auto) 4.9, Absolute Lymphs (auto) 1.43, Nucleated RBC % 0 09/29/22 03:10: Sodium 133 L, Potassium 4.7, Chloride 107, Carbon Dioxide 24.0, Anion Gap 2 L, BUN 44 H, Creatinine 1.89 H, Estim Creat Clear Calc 17.21, Est GFR (MDRD) Af Amer 33 L, Est GFR (MDRD) Non-Af 27 L, BUN/Creatinine Ratio 23.3 H , Glucose 107 H, Calcium 8.[address] 09/29/22 01:41 IMPRESSION: Negative Brain CT without contrast. Electronically Signed: Jamshid Mackenzie MD at 3:07 EDT Reading Location ID and State: [facility] / [place] Tel , Service support , Assessment & Plan Assessment/Plan (1) Recurrent falls: PLAN: Plan #Failure to thrive/multiple falls -PT/OT -Supportive care -Consult case management -Will need her ania removed 10/04 #Memory difficulty -Son and patient query if memantine could contribute and like her tapered off of this -Continue melatonin #CKD stage III unclear subtype -Creatinine 1.89 from 1.58 on 09/24 but she has been on Bactrim, do not suspect she has an RACHID -Has received some hydration in the ED -Continue to encourage p.o. -We will hold lisinopril for now and recheck BMP in the morning #History of pulmonary embolism -Is on apixaban -May need to consider risk-benefit conversation in the future if falls continue #Hypertension -Continue lisinopril, metoprolol, amlodipine -As it is suspected that her Bactrim use increased her creatinine #Recent UTI -On bactrim since 09/23, continue #DVT ppx: Lis Couch MD Time spent in the patient's overall evaluation,decision-making process, review of diagnostic data, adjustment of management, discussion with other providers, nursing nursing and ancillary staff involved in patient's care documentation, 45 minutes Charges/Coding Visit Charges Inpatient E&M: 38272 Init Hosp L1
--- NOTE | 2022-09-29 11:22 | RAD_ITS ---
HISTORY: fall, pain. TECHNIQUE: XR Pelvis 1 or 2 Views. COMPARISON: None. FINDINGS: OSSEOUS STRUCTURES: No acute displaced fracture identified. Note that overlapping bowel shadows may obscure osseous detail. Generalized osteopenia. JOINT SPACES: No dislocation. Mild degenerative changes of the hips. SOFT TISSUES: Surgical clips over the left pubic bone. RAD/Pelvis 1 or 2 Views IMPRESSION: No acute displaced fracture or dislocation identified. Electronically Signed: Sigrid Barajas MD at 12:45 EDT ,
--- NOTE | 2022-09-29 11:22 | RAD_ITS ---
HISTORY: fall, pain. TECHNIQUE: XR Knee 1 or 2 Views. COMPARISON: None. FINDINGS: BONES : No acute fracture identified. Generalized osteopenia. JOINTS: No dislocation. Mild degenerative change with medial compartment joint space narrowing. RAD/Knee 1 or 2 Views IMPRESSION: No acute fracture or dislocation identified in the left knee. Electronically Signed: Sigrid Barajas MD at 12:56 EDT ,
--- NOTE | 2022-09-29 11:40 | RAD_ITS ---
HISTORY: fall, pain. TECHNIQUE: XR Femur Min 2 Views. COMPARISON: None. FINDINGS: BONES : No acute fracture identified. Generalized osteopenia. JOINTS: No dislocation. Mild degenerative change. SOFT TISSUES: Peripheral vascular disease noted. RAD/Femur Min 2 Views IMPRESSION: No acute fracture or dislocation identified in the left femur. Electronically Signed: Sigrid Barajas MD at 12:46 EDT ,
--- NOTE | 2022-09-29 11:45 | CM.ED ---
Social Work Note Referral Source: supervisor waterworksOXANA Bell Referral Reason: SNF JUANY met with supervisor waterworksOXANA Bell who reports the patient is from [facility] but in need of SNF due to frequent falls. JUANY met with patient and patient's son, Michele, and introduced herself and role as [facility] [employer] Pilot. Patient agreeable to speak with SW with her son present. SW inquired about patient's current living situation and recent events. Patient's son reports patient has been living at [facility] assisted living but has fallen multiple times recently. Patient was recently admitted to [facility] due to a fall but didn't qualify for SNF at that time. Patient's son explained patient needs SNF as she fall again and wants to remain at [facility]. Patient in agreement but states there are other people that can't even get out of their wheelchair and they get to stay. SW provided emotional support and provided encouragement regarding going to SNF and returning to [place] when she is stronger. Patient reports understanding and is in agreement with referral for [facility] SNF. JUANY met with MD Garcia who reports the previous MD was recommending patient going to a different SNF that has a memory care unit. SW to review with patient. SW met with patient and patient's son and inquired about memory care need. Patient's son explained the patient does take medication for dementia, however, he does not feel she needs to be in memory care unit at this time. Patient's son states he did talk with the previous MD about her dementia as the patient wasn't understanding that MD but patient wants to remain at [facility]. Patient is currently alert and oriented and agrees she wants to remain at [facility]. [facility] reports [facility] are aware patient is in ED and will need precert for SNF. Admissions staff are hopeful they can get precert gricelda, SW will start referral via [facility] but SL will need therapy notes once available. JUANY met with MD Garcia to review conversations with SL and patient/ patient's family. MD to contact hospitalist for admission. JUANY started referral to [facility] for skilled via [facility]. Plan: [facility] for skilled level of care pending precert Conchita Berger INVESTMENT SALES ASSISTANT, CAROL
--- NOTE | 2022-09-29 11:56 | CASEMGMT ---
Discharge Planning Return referral to [facility] initiated. Estrella Zamudio
[2022-09-29] MEDS: Metoprolol Tartrate 50 MG Tablet PO ×2 (14:13→20:34)
[2022-09-29] MEDS: APIXABAN 2.5 MG TABLET (WCH) PO ×2 (14:13→20:34)
[2022-09-29] MEDS: Pantoprazole Sodium 40 MG Tablet PO (14:14)
[2022-09-29] MEDS: amLODIPine 10 MG Tablet PO (14:14)
[2022-09-29] MEDS: Sertraline 100 MG Tablet PO (14:14)
--- NOTE | 2022-09-29 14:49 | CASEMGMT ---
Discharge Planning Updates sent to [facility]. Estrella Zamudio
--- NOTE | 2022-09-29 15:33 | CASEMGMT ---
OXANA BHATT NOTE: Pt active w/[facility]. Call placed to Maria Luz @ [facility] and she was made aware d/c plan is for pt to go to a SNF. Keith GRANGER RN CM
--- NOTE | 2022-09-29 15:40 | CASEMGMT ---
Social Work Pt admitted for placement at [facility]. DC customer assistant sent referral and precert to be started at this time. PASRR completed for SNF placement. SW met with pt and son and updated that precert has been started. Pt will remain at [facility] until precert is obtained. Pt and family agreeable. Plan: [facility], pending precert DESIREE Gentile
[2022-09-29] MEDS: Smz/Tmp Ds Tablet 0.5 TABLET PO (17:44)
[2022-09-29] MEDS: MELATONIN 3 MG TABLET 6 MG PO (20:34)
[2022-09-29] MEDS: Pravastatin 20 MG Tablet PO (20:34)
[2022-09-29] MEDS: Memantine Hydrochloride 5 MG Tablet PO (20:34)
--- NOTE | 2022-09-29 20:39 | NURSING ---
HS MEDS GIVEN AT THIS TIME PER PT REQUEST SO SHE CAN GO TO BED
[2022-09-30 05:00] VITALS: BP 113/49; PULSE 61; RESP 14; TEMP 36.7; O2SAT 93
[2022-09-30 07:12] LABS: Anion Gap 1 (5-15); BUN 34 mg/dL (7-18); BUN/Creat Ratio 21.1 RATIO (10-20); Calcium,Total 9.3 mg/dL (8.5-10.1); Chloride 115 mmol/L (98-107); Creatinine, Serum 1.61 mg/dL (0.55-1.02); EST Glomerular Filtration Rate 32 mL/min (>60); Est Glom Filt Rate - Afr Amer 39 mL/min (>60); Estimated Creatinine Clearance 20.21 ml/min; Glucose 102 mg/dL (74-106); Potassium 4.8 mmol/L (3.5-5.1); Sodium Level 138 mmol/L (136-145)
[2022-09-30] MEDS: Acetaminophen 325 MG Tablet 650 MG PO (08:28)
[2022-09-30 08:29] VITALS: PULSE 65
[2022-09-30] MEDS: Smz/Tmp Ds Tablet 0.5 TABLET PO ×2 (08:29→17:21)
[2022-09-30] MEDS: Metoprolol Tartrate 50 MG Tablet PO ×2 (08:29→20:52)
[2022-09-30] MEDS: Tolterodine Tartrate 2 MG CAP.SA PO (08:30)
[2022-09-30] MEDS: Sertraline 100 MG Tablet PO (08:30)
[2022-09-30] MEDS: Pantoprazole Sodium 40 MG Tablet PO (08:30)
[2022-09-30] MEDS: APIXABAN 2.5 MG TABLET (WCH) PO ×2 (08:30→20:49)
[2022-09-30] MEDS: Memantine Hydrochloride 5 MG Tablet PO ×2 (08:30→20:48)
[2022-09-30 08:40] VITALS: BP 115/53; PULSE 65; RESP 18; TEMP 36.6; O2SAT 96
--- NOTE | 2022-09-30 11:10 | CASEMGMT ---
OXANA CM: OXANA BHATT in to complete CEE form at this time. Medical record notes pt to have dementia. Pt's son Michele at bedside. RN MILLER explained CEE for to Michele who voiced understanding. Patient's son Michele signed CEE Form and filed in chart. Patient and son provided with copy of signed CEE form. Patient's son Michele had no further questions or concerns. Alma Catherine RN CM
--- NOTE | 2022-09-30 11:20 | PN.HOSP_ITS ---
Reason for Visit Reason for Visit: Diagnoses Repeated falls (09/29/22) Subjective Subjective Feels like she has a little bit of an upset stomach but no other complaints this morning Objective Data Objective Data Vital Signs: Vital Signs Temp Pulse Resp BP Pulse Ox O2 Del Method 98 F 65 18 115/53 L 96 Room Air 09/30/22 08:40 09/30/22 08:40 09/30/22 08:40 09/30/22 08:40 09/30/22 08:40 09/30/22 08:40 Oxygen Delivery Method Room Air Weight: 73.482 kg Body Mass Index (BMI) 29.6 Intake & Output: Intake and Output for Last 24 Hours 09/28/22 09/29/22 09/30/22 23:59 23:59 23:59 Intake Total 1300 / 1300 Output Total 850 / 850 Balance 1300 / 1300 -850 / -850 Lab / Micro Data Result Diagrams: 09/29/22 03:10 09/30/22 05:45 Labs: Laboratory Results - last 24 hr 09/30/22 05:45: Sodium 138, Potassium 4.8, Chloride 115 H, Carbon Dioxide 22.0, Anion Gap 1 L, BUN 34 H, Creatinine 1.61 H, Estim Creat Clear Calc 20.21, Est GFR (MDRD) Af Amer 39 L, Est GFR (MDRD) Non-Af 32 L, BUN/Creatinine Ratio 21.1 H , Glucose 102, Calcium 9.3 Radiography Diagnostic Testing: Radiology Impression Knee X-Ray 09/29/22 11:22 IMPRESSION: No acute fracture or dislocation identified in the left knee. Electronically Signed: Sigrid Barajas MD at 12:56 EDT , Pelvis X-Ray 09/29/22 11:22 IMPRESSION: No acute displaced fracture or dislocation identified. Electronically Signed: Sigrid Barajas MD at 12:45 EDT , Femur X-Ray 09/29/22 11:40 IMPRESSION: No acute fracture or dislocation identified in the left femur. Electronically Signed: Sigrid Barajas MD at 12:46 EDT , Physical Exam Narrative General: Easily awoken HEENT: Atraumatic, normocephalic Eyes: Anicteric, normal conjunctiva, extraocular movements grossly intact Neck: Supple Respiratory: Clear to auscultation bilaterally, normal respiratory effort Cardiovascular: Regular rate and rhythm GI: Soft, nontender, nondistended Extremities: No edema Musculoskeletal: Moving all extremities Neuro: No overt focal neurological deficits Skin: No rashes appreciated Psych: Cooperative Assessment & Plan Assessment/Plan (1) Recurrent falls: PLAN: Plan #Failure to thrive/multiple falls -PT/OT -Supportive care -Consult case management -Will need her ania removed 10/04 -09/30: Awaiting placement #Memory difficulty -Son and patient query if memantine could contribute and like her tapered off of this -Continue melatonin #CKD stage III unclear subtype -Creatinine 1.89 from 1.58 on 09/24 but she has been on Bactrim, do not suspect she has an RACHID -Has received some hydration in the ED -Continue to encourage p.o. -We will hold lisinopril for now and recheck BMP in the morning -09/30: Creatinine improved, BP if anything on the low end of normal so will continue to hold lisinopril and recheck after metoprolol reported to be 95/51 so Norvasc held as well. Given BP even with held Norvasc and metoprolol is possible that low BP was contributing to falls though cannot say this definitive ly #History of pulmonary embolism -Is on apixaban -May need to consider risk-benefit conversation in the future if falls continue #Hypertension -Continue lisinopril, metoprolol, amlodipine -As it is suspected that her Bactrim use increased her creatinine #Recent UTI -On bactrim since 09/23, continue, likely 10 day course will be sufficient #DVT ppx: Lis Couch MD Time spent in the patient's overall evaluation,decision-making process, review of diagnostic data, adjustment of management, discussion with other providers, nursing nursing and ancillary staff involved in patient's care documentation, 26 minutes Charges/Coding Visit Charges Inpatient E&M: 65707 Subs Hosp L2
[2022-09-30 15:00] VITALS: BP 120/52; PULSE 73; RESP 16; TEMP 36.8; O2SAT 95
[2022-09-30] MEDS: Pravastatin 20 MG Tablet PO (20:48)
[2022-09-30] MEDS: MELATONIN 3 MG TABLET 6 MG PO (20:49)
[2022-09-30 20:52] VITALS: BP 119/58; PULSE 68
[2022-09-30] MEDS: 0.9% Saline Lock 10 ML Syringe IV (20:56)
[2022-10-01 05:12] VITALS: BP 116/46; PULSE 63; RESP 14; TEMP 36.7; O2SAT 95
--- NOTE | 2022-10-01 06:53 | PN.HOSP_ITS ---
Reason for Visit Reason for Visit: Diagnoses Repeated falls (09/29/22) Subjective Subjective Overall feeling fair, no acute complaints. Did have trouble with retaining and had to have a straight cath, most recently was able to void with adequate postvoid residual. Continue void trials Objective Data Objective Data Vital Signs: Vital Signs Temp Pulse Resp BP Pulse Ox O2 Del Method 98.1 F 63 14 116/46 L 95 Room Air 10/01/22 05:12 10/01/22 05:12 10/01/22 05:12 10/01/22 05:12 10/01/22 05:12 10/01/22 05:12 Oxygen Delivery Method Room Air Weight: 73.482 kg Body Mass Index (BMI) 29.6 Intake & Output: Intake and Output for Last 24 Hours 09/29/22 09/30/22 10/01/22 23:59 23:59 23:59 Intake Total 1300 / 1300 640 / 640 Output Total 1350 / 1350 Balance 1300 / 1300 -710 / -710 Lab / Micro Data Result Diagrams: 09/29/22 03:10 09/30/22 05:45 Labs: Laboratory Results - last 24 hr 09/30/22 05:45: Sodium 138, Potassium 4.8, Chloride 115 H, Carbon Dioxide 22.0, Anion Gap 1 L, BUN 34 H, Creatinine 1.61 H, Estim Creat Clear Calc 20.21, Est GFR (MDRD) Af Amer 39 L, Est GFR (MDRD) Non-Af 32 L, BUN/Creatinine Ratio 21.1 H , Glucose 102, Calcium 9.3 Physical Exam Narrative General: Alert, no acute distress HEENT: Atraumatic, normocephalic Eyes: Anicteric, normal conjunctiva, extraocular movements grossly intact Neck: Supple Respiratory: Clear to auscultation bilaterally, normal respiratory effort Cardiovascular: Regular rate and rhythm GI: Soft, nontender, nondistended Extremities: No edema Musculoskeletal: Moving all extremities Neuro: No overt focal neurological deficits Skin: No rashes appreciated Psych: Cooperative Assessment & Plan Assessment/Plan (1) Recurrent falls: PLAN: Plan #Failure to thrive/multiple falls -PT/OT -Supportive care -Consult case management -Will need her ania removed 10/04 -09/30: Awaiting placement -10/01: Continues to await placement #Memory difficulty -Son and patient query if memantine could contribute and like her tapered off of this -Continue melatonin #CKD stage III unclear subtype -Creatinine 1.89 from 1.58 on 09/24 but she has been on Bactrim, do not suspect she has an RACHID -Has received some hydration in the ED -Continue to encourage p.o. -We will hold lisinopril for now and recheck BMP in the morning -09/30: Creatinine improved, BP if anything on the low end of normal so will continue to hold lisinopril and recheck after metoprolol reported to be 95/51 so Norvasc held as well. Given BP even with held Norvasc and metoprolol is possible that low BP was contributing to falls though cannot say this definitively #History of pulmonary embolism -Is on apixaban -May need to consider risk-benefit conversation in the future if falls continue #Hypertension -Continue lisinopril, metoprolol, amlodipine -As it is suspected that her Bactrim use increased her creatinine #Recent UTI -On bactrim since 09/23, continue, likely 10 day course will be sufficient -10/01: Was having some problem with retaining urine and was undergoing voiding trials but most recently had 1 where she was able to void with adequate postvoid residuals no [place] placed. Can consider repeat labs and UA if any significant retention #DVT ppx: Lis Couch MD Time spent in the patient's overall evaluation,decision-making process, review of diagnostic data, adjustment of management, discussion with other providers, nursing nursing and ancillary staff involved in patient's care documentation, 26 minutes Charges/Coding Visit Charges Inpatient E&M: 81131 [facility] L2
[2022-10-01 10:11] VITALS: BP 101/54; PULSE 70; RESP 18; TEMP 36.7; O2SAT 96
[2022-10-01] MEDS: Smz/Tmp Ds Tablet 0.5 TABLET PO ×2 (10:20→16:36)
[2022-10-01] MEDS: APIXABAN 2.5 MG TABLET (WCH) PO ×2 (10:21→21:00)
[2022-10-01 10:22] VITALS: BP 101/54; PULSE 70
[2022-10-01] MEDS: Metoprolol Tartrate 50 MG Tablet PO (10:22)
[2022-10-01] MEDS: Tolterodine Tartrate 2 MG CAP.SA PO (10:22)
[2022-10-01] MEDS: Sertraline 100 MG Tablet PO (10:23)
[2022-10-01] MEDS: Memantine Hydrochloride 5 MG Tablet PO ×2 (10:23→21:00)
[2022-10-01] MEDS: Pantoprazole Sodium 40 MG Tablet PO (10:23)
[2022-10-01] MEDS: Acetaminophen 325 MG Tablet 650 MG PO (13:42)
[2022-10-01] MEDS: Psyllium 1 PACKET PO ×2 (13:43→21:04)
[2022-10-01 16:30] VITALS: BP 115/57; PULSE 68; RESP 16; TEMP 36.7; O2SAT 96
[2022-10-01 20:55] VITALS: BP 113/56; PULSE 73; RESP 16; TEMP 37.1; O2SAT 95
[2022-10-01] MEDS: Pravastatin 20 MG Tablet PO (21:00)
[2022-10-01] MEDS: MELATONIN 3 MG TABLET 6 MG PO (21:00)
[2022-10-01 21:03] VITALS: PULSE 73
[2022-10-01] MEDS: Metoprolol Tartrate 25 MG Tablet PO (21:03)
[2022-10-02] VITALS (7 sets, daily range): BP systolic 103–120; BP diastolic 51–65; PULSE 70–80; RESP 16–18; TEMP 36.6–36.9; O2SAT 94–97
[2022-10-02 05:54] LABS: Absolute Lymphocyte Count 1.51 X10^3/uL (0.83-4.51); Absolute Neutrophil Count 3.1 X10^3/uL (2.0-7.7); Basophil# 0.04 X10^3/uL; Basophil% 0.7 % (0-1); Eosinophil# 0.36 X10^3/uL; Eosinophils% 6.5 % (0-5); Hematocrit 31.7 % (37-47); Lymphocyte # 1.51 X10^3/ul (0.83-4.51); Lymphocyte % 27.4 % (19-41); Mean Corp Hgb Conc 31.5 g/dL (32-36); Mean Corpuscular Hgb 29.9 pg (27.0-32.0); Mean Corpuscular Volume 94.6 fL (81-99); Mean Platelet Vol. 8.7 fl (6.2-12.0); Monocyte# 0.46 X10^3/uL; Monocyte% 8.3 % (0-10); NRBC Flagged by Analyzer 0 % (0-5); Neutrophil # 3.13 X10^3/uL (2.7-7.7); Neutrophil % 56.7 % (47-70); Platelet Count 208 K/mm3 (150-450); RBC Distribution Width CV 13.4 % (11.6-14.6); RBC Distribution Width SD 46.4 fl (35.1-43.9); Red Blood Count 3.35 M/mm3 (4.2-5.4); White Blood Count 5.5 K/mm3 (4.4-11.0)
[2022-10-02] MEDS: Psyllium 1 PACKET PO ×3 (05:56→21:29)
[2022-10-02 06:33] LABS: AST(SGOT) 22 U/L (15-37); Alanine Aminotransfer ALT/SGPT 21 U/L (13-56); Albumin, Serum 3.2 g/dL (3.2-5.0); Alkaline Phosphatase 74 U/L (45-117); Anion Gap 6 (5-15); BUN 32 mg/dL (7-18); BUN/Creat Ratio 20.8 RATIO (10-20); Chloride 111 mmol/L (98-107); Creatinine, Serum 1.54 mg/dL (0.55-1.02); EST Glomerular Filtration Rate 34 mL/min (>60); Est Glom Filt Rate - Afr Amer 41 mL/min (>60); Estimated Creatinine Clearance 21.12 ml/min; Globulin 3.2 g/dL (2.2-4.2); Glucose 96 mg/dL (74-106); Potassium 4.6 mmol/L (3.5-5.1); Protein, Total 6.4 g/dL (6.4-8.2); Sodium Level 142 mmol/L (136-145)
--- NOTE | 2022-10-02 07:52 | PN.HOSP_ITS ---
Reason for Visit Reason for Visit: Diagnoses Repeated falls (09/29/22) Subjective Subjective Patient is an 87-year-old lady admitted with multiple falls currently being managed admitted to regular nursing floor with plans for patient to be transfe rred to a prison facility Objective Data Objective Data Vital Signs: Vital Signs Temp Pulse Resp BP Pulse Ox O2 Del Method 98.5 F 70 16 107/56 L 97 Room Air 10/02/22 06:00 10/02/22 06:00 10/02/22 06:00 10/02/22 06:00 10/02/22 06:00 10/02/22 06:00 Oxygen Delivery Method Room Air Weight: 73.482 kg Body Mass Index (BMI) 29.6 Intake & Output: Intake and Output for Last 24 Hours 09/30/22 10/01/22 10/02/22 23:59 23:59 23:59 Intake Total 640 / 640 750 / 990 240 / 240 Output Total 1350 / 1350 700 / 700 Balance -710 / -710 50 / 290 240 / 240 Lab / Micro Data Result Diagrams: 10/02/22 05:30 10/02/22 05:30 Labs: Laboratory Results - last 24 hr 10/02/22 05:30: WBC 5.5, RBC 3.35 L, Hgb 10.0 L, Hct 31.7 L, MCV 94.6, MCH 29.9, MCHC 31.5 L, RDW Std Deviation 46.4 H, RDW Coeff of Beena 13.4, Plt Count 208, MPV 8.7, Immature Gran % (Auto) 0.400, Neut % (Auto) 56.7, Lymph % (Auto) 27.4, [place] % (Auto) 8.3, Eos % (Auto) 6.5 H, Baso % (Auto) 0.7, Absolute Neuts (auto) 3.1, Absolute Lymphs (auto) 1.51, Nucleated RBC % 0 10/02/22 05:30: Sodium 142, Potassium 4.6, Chloride 111 H, Carbon Dioxide 25.0, Anion Gap 6, BUN 32 H, Creatinine 1.54 H, Estim Creat Clear Calc 21.12, Est GFR (MDRD) Af Amer 41 L, Est GFR (MDRD) Non-Af 34 L, BUN/Creatinine Ratio 20.8 H, Glucose 96, Calcium 9.0, Total Bilirubin 0.30, AST 22, ALT 21, Alkaline Phosphatase 74, Total Protein 6.4, Albumin 3.2, Globulin 3.2, Albumin/Globulin Ratio 1.0 Physical Exam Narrative GENERAL: cooperative HEENT: Atraumatic; normocephalic EYES; Anicteric, Normal Conjunctiva NECK; supple, normal thyroid, RESPIRATORY: Diminished to auscultation CARDIOVASCULAR: Regular S1 S2, GI: soft, normoactive bowel sounds, : No Renal angle tenderness; EXTREMITIES: No edema, no clubbing, MUSCULOSKELETAL: no muscle wasting NEURO: Awake; no lateralizing signs. SKIN: No Rash PSYCH; Flat affect Assessment & Plan Assessment/Plan (1) Recurrent falls: PLAN: Plan Patient is an 87-year-old lady admitted with multiple falls currently being managed admitted to regular nursing floor with plans for patient to be transferred to a prison facility 1. Physical deconditioning - Requested for PT OT eval and social media senior associate to assist with discharge planning 2. History of pulmonary embolism ? Patient is on apixaban 3. Chronic kidney disease stage III ? Kidney function at baseline 4.. Mild dementia ? Patient is on memantine 5. Hypertension - Blood pressure controlled, home medications continued with dose adjustment as needed 6. Recent urinary tract infection ? Patient was managed with Bactrim 7. GERD ? On PPI 8. Dyslipidemia -Patient is on statin therapy, continued at home dose 9. Depression ? Patient is on sertraline . DVT prophylaxis ? On apixaban Time spent in the patient's overall evaluation,decision-making process, review o f diagnostic data, adjustment of management, discussion with other providers, nursing nursing and ancillary staff involved in patient's care documentation, 35 minutes Charges/Coding Visit Charges Inpatient E&M: 38109 Subs Hosp L2
[2022-10-02] MEDS: Tolterodine Tartrate 2 MG CAP.SA PO (08:11)
[2022-10-02] MEDS: APIXABAN 2.5 MG TABLET (WCH) PO ×2 (08:11→21:30)
[2022-10-02] MEDS: Smz/Tmp Ds Tablet 0.5 TABLET PO ×2 (08:11→16:02)
[2022-10-02] MEDS: Sertraline 100 MG Tablet PO (08:12)
[2022-10-02] MEDS: Pantoprazole Sodium 40 MG Tablet PO (08:12)
[2022-10-02] MEDS: Metoprolol Tartrate 25 MG Tablet PO ×2 (08:12→21:30)
[2022-10-02] MEDS: Memantine Hydrochloride 5 MG Tablet PO ×2 (08:12→21:31)
--- NOTE | 2022-10-02 09:16 | CM.UR ---
Discharge Planning Updates sent to [facility] via [facility]. Estrella Zamudio
--- NOTE | 2022-10-02 10:51 | CASEMGMT ---
Discharge Planning Per [facility], sergio-cert is still pending. Patient will admit either skilled or intermediate to SNF with goal to return to [place].
[2022-10-02] MEDS: Senna/Docusate Sodium 1 Tablet 2 TABLET PO (18:19)
[2022-10-02] MEDS: MELATONIN 3 MG TABLET 6 MG PO (21:30)
[2022-10-02] MEDS: Pravastatin 20 MG Tablet PO (21:30)
[2022-10-03] VITALS (7 sets, daily range): BP systolic 112–139; BP diastolic 54–65; PULSE 68–84; RESP 16; TEMP 36.6–36.9; O2SAT 96–97
[2022-10-03] MEDS: Psyllium 1 PACKET PO ×3 (05:04→21:12)
[2022-10-03 06:38] LABS: Absolute Lymphocyte Count 1.62 X10^3/uL (0.83-4.51); Absolute Neutrophil Count 3.6 X10^3/uL (2.0-7.7); Basophil# 0.04 X10^3/uL; Basophil% 0.7 % (0-1); Eosinophil# 0.32 X10^3/uL; Eosinophils% 5.3 % (0-5); Hematocrit 31.5 % (37-47); Hemoglobin 10.1 g/dL (12.0-15.0); Lymphocyte # 1.62 X10^3/ul (0.83-4.51); Lymphocyte % 26.6 % (19-41); Mean Corp Hgb Conc 32.1 g/dL (32-36); Mean Corpuscular Hgb 29.9 pg (27.0-32.0); Mean Corpuscular Volume 93.2 fL (81-99); Mean Platelet Vol. 8.7 fl (6.2-12.0); Monocyte# 0.46 X10^3/uL; Monocyte% 7.6 % (0-10); NRBC Flagged by Analyzer 0 % (0-5); Neutrophil # 3.63 X10^3/uL (2.7-7.7); Neutrophil % 59.5 % (47-70); Platelet Count 212 K/mm3 (150-450); RBC Distribution Width CV 13.3 % (11.6-14.6); RBC Distribution Width SD 45.1 fl (35.1-43.9); Red Blood Count 3.38 M/mm3 (4.2-5.4); White Blood Count 6.1 K/mm3 (4.4-11.0)
[2022-10-03 07:08] LABS: Anion Gap 8 (5-15); BUN 32 mg/dL (7-18); BUN/Creat Ratio 21.5 RATIO (10-20); Chloride 109 mmol/L (98-107); Creatinine, Serum 1.49 mg/dL (0.55-1.02); EST Glomerular Filtration Rate 35 mL/min (>60); Est Glom Filt Rate - Afr Amer 43 mL/min (>60); Estimated Creatinine Clearance 21.83 ml/min; Glucose 87 mg/dL (74-106); Magnesium 1.6 mg/dL (1.6-2.6); Phosphorus 3.8 mg/dL (2.5-4.9); Potassium 4.2 mmol/L (3.5-5.1); Sodium Level 139 mmol/L (136-145)
--- NOTE | 2022-10-03 07:14 | PCM.PN.HOSP ---
Reason for Visit Reason for Visit: Diagnoses Repeated falls (09/29/22) Subjective Subjective Chest seen. Had a relatively uneventful night. Awaiting insurance precertification prior to transfer to alf Objective Data Objective Data Vital Signs: Vital Signs Temp Pulse Resp BP Pulse Ox O2 Del Method 97.9 F 70 16 115/65 96 Room Air 10/03/22 05:10 10/03/22 05:10 10/03/22 05:10 10/03/22 05:10 10/03/22 05:10 10/03/22 05:10 Oxygen Delivery Method Room Air Weight: 73.482 kg Body Mass Index (BMI) 29.6 Intake & Output: Intake and Output for Last 24 Hours 10/01/22 10/02/22 10/03/22 23:59 23:59 23:59 Intake Total 750 / 990 240 / 240 300 / 300 Output Total 700 / 700 Balance 50 / 290 240 / 240 300 / 300 Lab / Micro Data Result Diagrams: 10/03/22 05:44 10/03/22 05:44 Labs: Laboratory Results - last 24 hr 10/03/22 05:44: WBC 6.1, RBC 3.38 L, Hgb 10.1 L, Hct 31.5 L, MCV 93.2, MCH 29.9, MCHC 32.1, RDW Std Deviation 45.1 H, RDW Coeff of Beena 13.3, Plt Count 212, MPV 8.7, Immature Gran % (Auto) 0.300, Neut % (Auto) 59.5, Lymph % (Auto) 26.6, [place] % (Auto) 7.6, Eos % (Auto) 5.3 H, Baso % (Auto) 0.7, Absolute Neuts (auto) 3.6, Absolute Lymphs (auto) 1.62, Nucleated RBC % 0 10/03/22 05:44: Sodium 139, Potassium 4.2, Chloride 109 H, Carbon Dioxide 22.0, Anion Gap 8, BUN 32 H, Creatinine 1.49 H, Estim Creat Clear Calc 21.83, Est GFR (MDRD) Af Amer 43 L, Est GFR (MDRD) Non-Af 35 L, BUN/Creatinine Ratio 21.5 H, Glucose 87, Calcium 9.0, Phosphorus 3.8, Magnesium 1.6 Physical Exam Narrative GENERAL: cooperative HEENT: Atraumatic; normocephalic EYES; Anicteric, Normal Conjunctiva NECK; supple, normal thyroid, RESPIRATORY: Diminished to auscultation CARDIOVASCULAR: Regular S1 S2, GI: soft, normoactive bowel sounds, : No Renal angle tenderness; EXTREMITIES: No edema, no clubbing, MUSCULOSKELETAL: no muscle wasting NEURO: Awake; no lateralizing signs. SKIN: No Rash PSYCH; Flat affect Assessment & Plan Assessment/Plan (1) Recurrent falls: PLAN: Plan Patient is an 87-year-old lady admitted with multiple falls currently being managed admitted to regular nursing floor with plans for patient to be transferred to a alf facility 1. Physical deconditioning - Requested for PT OT eval and social economist to assist with discharge planning 2. History of pulmonary embolism ? Patient is on apixaban 3. Chronic kidney disease stage III ? Kidney function at baseline 4.. Mild dementia ? Patient is on memantine 5. Hypertension - Blood pressure controlled, home medications continued with dose adjustment as needed 6. Recent urinary tract infection ? Patient was managed with Bactrim 7. GERD ? On PPI 8. Dyslipidemia -Patient is on statin therapy, continued at home dose 9. Depression ? Patient is on sertraline . DVT prophylaxis ? On apixaban Time spent in the patient's overall evaluation,decision-making process, review of diagnostic data, adjustment of management, discussion with other providers, nursing nursing and ancillary staff involved in patient's care documentation, 25 minutes Charges/Coding Visit Charges Inpatient E&M: [id number] [facility] L1
[2022-10-03] MEDS: Smz/Tmp Ds Tablet 0.5 TABLET PO ×2 (08:12→17:07)
--- NOTE | 2022-10-03 08:55 | PCM.TXEXTCAR ---
Diet Diet Order/Speech Therapy: 09/29/22 12:26 Diet: Cardiac - Heart Healthy Food consistency:: Regular Liquid Consistency:: Regular/Thin Routine Orders/Code Status Code Status: DNRCC-A Wound(s) healing cut to back of head: Wound Type: Laceration Therapies Physical Therapy: Eval and Treat Occupational Therapy: Eval and Treat Problem/Diagnosis (1) Recurrent falls: Status: Acute Code(s): R29.6 - Repeated falls Plan Patient is an 87-year-old lady admitted with multiple falls currently being managed admitted to regular nursing floor with plans for patient to be transferred to a [facility] facility 1. Physical deconditioning - Requested for PT OT eval and dialysis social worker to assist with discharge planning 2. History of pulmonary embolism ? Patient is on apixaban 3. Chronic kidney disease stage III ? Kidney function at baseline 4.. Mild dementia ? Patient is on memantine 5. Hypertension - Blood pressure controlled, home medications continued with dose adjustment as needed 6. Recent urinary tract infection ? Patient was managed with Bactrim 7. GERD ? On PPI 8. Dyslipidemia -Patient is on statin therapy, continued at home dose 9. Depression ? Patient is on sertraline . DVT prophylaxis ? On apixaban Time spent in the patient's overall evaluation,decision-making process, review of diagnostic data, adjustment of management, discussion with other providers, nursing nursing and ancillary staff involved in patient's care documentation, 25 minutes Allergies/Procedures Done in Hospital Allergies paroxetine HCl [From Paxil] Adverse Reaction (Mild, Verified 09/28/22 23:33) Nausea rosuvastatin calcium [From Crestor] Adverse Reaction (Mild, Verified 09/28/22 23:33) Nausea simvastatin [From Zocor] Adverse Reaction (Mild, Verified 09/28/22 23:33) Nausea Type of Care/Length of Stay Estimated LOS: Convalescent Care Less Than 30 days Type of Care Needed: Skilled Rehab Potential: Good Prognosis: Good Additional Orders/Day of Discharge Day of Discharge: 10/03/22 Discharge Plan Admission Admit Date/Time: 09/29/22 11:18 Attending Provider: Eamon Brooke Primary Care Provider: Yohannes Acosta Consulting Providers: Melly Couch Discharge Orders/Prescriptions Prescriptions: New albuterol sulfate 2.5 mg /3 mL (0.083 %) Solution For Nebulization 2.5 mg inhalation Q2H PRN PRN (Reason: Shortness of Breath/Wheezing) Qty: 0 0RF sennosides-docusate sodium [Stool Softener-Stimulant Laxat] 8.6-50 mg Tablet 2 tab PO BID PRN PRN (Reason: Constipation) Qty: 0 0RF Daily Fiber (psyllium-aspart) 3 gram Powder In Packet 1 packet PO TID Qty: 0 0RF Continued melatonin 3 mg tablet 6 mg PO QHS acetaminophen 500 mg capsule 1,000 mg PO TID PRN (Reason: pain) metoprolol tartrate 50 mg tablet 50 mg PO BID omeprazole 40 mg capsule,delayed release(DR/EC) 40 mg PO DAILY oxybutynin chloride 10 mg tablet extended release 24hr 10 mg PO BID cyanocobalamin (vitamin B-12) 1,000 mcg tablet 1,000 mcg PO DAILY cholecalciferol (vitamin D3) 1,250 mcg (50,000 unit) capsule 1,250 mcg PO FR Eliquis 2.5 mg tablet 2.5 mg PO BID sertraline 100 mg tablet 100 mg PO DAILY amlodipine 10 mg tablet 10 mg PO DAILY nystatin [Nystop] 100,000 unit/gram Powder 1 applic TOPICAL 4X/DAY PRN (Reason: Skin Irritation) memantine 10 mg tablet 10 mg PO BID lisinopril 20 mg tablet 20 mg PO BID pravastatin 20 mg tablet 20 mg PO DAILY Referrals / Follow Up: Yohannes Acosta DO [Primary Care Provider] - Disposition Disposition (needs filled in before D/C Order can be placed): Nursing Home Facility
[2022-10-03] MEDS: Metoprolol Tartrate 25 MG Tablet PO ×2 (09:06→21:12)
[2022-10-03] MEDS: Tolterodine Tartrate 2 MG CAP.SA PO (09:06)
[2022-10-03] MEDS: Sertraline 100 MG Tablet PO (09:06)
[2022-10-03] MEDS: Pantoprazole Sodium 40 MG Tablet PO (09:07)
[2022-10-03] MEDS: Memantine Hydrochloride 5 MG Tablet PO ×2 (09:07→21:12)
[2022-10-03] MEDS: APIXABAN 2.5 MG TABLET (WCH) PO ×2 (09:07→21:12)
--- NOTE | 2022-10-03 16:22 | CASEMGMT ---
Discharge Planning [employer] spoke with Rayna at [facility]. [facility] was insistent that a Passr be completed before they would give a intermediate loc for placement. [facility] completed the Passr and are hoping to have auth to admit tomorrow (10/04).
[2022-10-03] MEDS: Pravastatin 20 MG Tablet PO (21:12)
[2022-10-03] MEDS: MELATONIN 3 MG TABLET 6 MG PO (21:12)
[2022-10-04] MEDS: Psyllium 1 PACKET PO (05:36)
[2022-10-04 06:00] VITALS: BP 118/57; PULSE 69; RESP 15; TEMP 36.7; O2SAT 95
[2022-10-04 06:34] LABS: Absolute Lymphocyte Count 1.52 X10^3/uL (0.83-4.51); Absolute Neutrophil Count 3.8 X10^3/uL (2.0-7.7); Basophil# 0.03 X10^3/uL; Basophil% 0.5 % (0-1); Eosinophil# 0.35 X10^3/uL; Eosinophils% 5.6 % (0-5); Hematocrit 32.1 % (37-47); Hemoglobin 10.3 g/dL (12.0-15.0); Lymphocyte # 1.52 X10^3/ul (0.83-4.51); Lymphocyte % 24.4 % (19-41); Mean Corp Hgb Conc 32.1 g/dL (32-36); Mean Corpuscular Hgb 29.7 pg (27.0-32.0); Mean Corpuscular Volume 92.5 fL (81-99); Mean Platelet Vol. 8.9 fl (6.2-12.0); Monocyte# 0.46 X10^3/uL; Monocyte% 7.4 % (0-10); NRBC Flagged by Analyzer 0 % (0-5); Neutrophil # 3.83 X10^3/uL (2.7-7.7); Neutrophil % 61.5 % (47-70); Platelet Count 223 K/mm3 (150-450); RBC Distribution Width CV 13.4 % (11.6-14.6); RBC Distribution Width SD 44.9 fl (35.1-43.9); Red Blood Count 3.47 M/mm3 (4.2-5.4); White Blood Count 6.2 K/mm3 (4.4-11.0)
[2022-10-04 07:12] LABS: Anion Gap 8 (5-15); BUN 33 mg/dL (7-18); BUN/Creat Ratio 22.8 RATIO (10-20); Calcium,Total 9.2 mg/dL (8.5-10.1); Chloride 108 mmol/L (98-107); Creatinine, Serum 1.45 mg/dL (0.55-1.02); EST Glomerular Filtration Rate 36 mL/min (>60); Est Glom Filt Rate - Afr Amer 44 mL/min (>60); Estimated Creatinine Clearance 22.43 ml/min; Glucose 91 mg/dL (74-106); Potassium 3.8 mmol/L (3.5-5.1); Sodium Level 138 mmol/L (136-145)
--- NOTE | 2022-10-04 07:25 | PCM.PN.HOSP ---
Reason for Visit Reason for Visit: Diagnoses Repeated falls (09/29/22) Subjective Subjective Patient seen had a relatively uneventful night. Transfer to senior care facility still pending Objective Data Objective Data Vital Signs: Vital Signs Temp Pulse Resp BP Pulse Ox O2 Del Method 98.1 F 69 15 118/57 L 95 Room Air 10/04/22 06:00 10/04/22 06:00 10/04/22 06:00 10/04/22 06:00 10/04/22 06:00 10/04/22 06:00 Oxygen Delivery Method Room Air Weight: 73.482 kg Body Mass Index (BMI) 29.6 Intake & Output: Intake and Output for Last 24 Hours 10/02/22 10/03/22 10/04/22 23:59 23:59 23:59 Intake Total 240 / 240 480 / 480 Output Total 200 / 200 Balance 240 / 240 280 / 280 Lab / Micro Data Result Diagrams: 10/04/22 05:50 10/04/22 05:50 Labs: Laboratory Results - last 24 hr 10/04/22 05:50: WBC 6.2, RBC 3.47 L, Hgb 10.3 L, Hct 32.1 L, MCV 92.5, MCH 29.7, MCHC 32.1, RDW Std Deviation 44.9 H, RDW Coeff of Beena 13.4, Plt Count 223, MPV 8.9, Immature Gran % (Auto) 0.600, Neut % (Auto) 61.5, Lymph % (Auto) 24.4, [place] % (Auto) 7.4, Eos % (Auto) 5.6 H, Baso % (Auto) 0.5, Absolute Neuts (auto) 3.8, Absolute Lymphs (auto) 1.52, Nucleated RBC % 0 10/04/22 05:50: Sodium 138, Potassium 3.8, Chloride 108 H, Carbon Dioxide 22.0, Anion Gap 8, BUN 33 H, Creatinine 1.45 H, Estim Creat Clear Calc 22.43, Est GFR (MDRD) Af Amer 44 L, Est GFR (MDRD) Non-Af 36 L, BUN/Creatinine Ratio 22.8 H, Glucose 91, Calcium 9.2 Physical Exam Narrative GENERAL: cooperative HEENT: Atraumatic; normocephalic EYES; Anicteric, Normal Conjunctiva NECK; supple, normal thyroid, RESPIRATORY: Diminished to auscultation CARDIOVASCULAR: Regular S1 S2, GI: soft, normoactive bowel sounds, : No Renal angle tenderness; EXTREMITIES: No edema, no clubbing, MUSCULOSKELETAL: no muscle wasting NEURO: Awake; no lateralizing signs. SKIN: No Rash PSYCH; Flat affect Assessment & Plan Assessment/Plan (1) Recurrent falls: PLAN: Plan Patient is an 87-year-old lady admitted with multiple falls currently being managed admitted to regular nursing floor with plans for patient to be transferred to a senior care facility 1. Physical deconditioning - Requested for PT OT eval and hospice social worker to assist with discharge planning 2. History of pulmonary embolism ? Patient is on apixaban 3. Chronic kidney disease stage III ? Kidney function at baseline 4.. Mild dementia ? Patient is on memantine 5. Hypertension - Blood pressure controlled, home medications continued with dose adjustment as needed 6. Recent urinary tract infection ? Patient was managed with Bactrim 7. GERD ? On PPI 8. Dyslipidemia -Patient is on statin therapy, continued at home dose 9. Depression ? Patient is on sertraline . DVT prophylaxis ? On apixaban Time spent in the patient's overall evaluation,decision-making process, review of diagnostic data, adjustment of management, discussion with other providers, nursing nursing and ancillary staff involved in patient's care documentation, 25 minutes Charges/Coding Visit Charges Inpatient E&M: [id number] [facility] L1
[2022-10-04] MEDS: Smz/Tmp Ds Tablet 0.5 TABLET PO (07:55)
[2022-10-04 09:40] VITALS: BP 112/68; PULSE 77; RESP 16; TEMP 36.9; O2SAT 96
[2022-10-04 09:46] VITALS: PULSE 77
[2022-10-04] MEDS: Pantoprazole Sodium 40 MG Tablet PO (09:46)
[2022-10-04] MEDS: APIXABAN 2.5 MG TABLET (WCH) PO (09:46)
[2022-10-04] MEDS: Metoprolol Tartrate 25 MG Tablet PO (09:46)
[2022-10-04] MEDS: Tolterodine Tartrate 2 MG CAP.SA PO (09:46)
[2022-10-04] MEDS: Memantine Hydrochloride 5 MG Tablet PO (09:46)
[2022-10-04] MEDS: Sertraline 100 MG Tablet PO (09:47)
--- NOTE | 2022-10-04 10:09 | CASEMGMT ---
Social Work SW called Bernadine at [facility] to inquire about pt discharge and LOC or precert. No answer, JUANY received voicemail. JUANY left message with call back number and requested Bernadine return a call. PLAN: [facility], pending precert/LOC DESIREE Luis
--- NOTE | 2022-10-04 11:39 | CASEMGMT ---
Social Work SW received return call from Bernadine at [facility]. Pt has been approved to return to their facility today. SW updated MD Brooke. PLAN: Return to [facility] DESIREE Luis
--- NOTE | 2022-10-04 11:54 | CASEMGMT ---
Updated Maria Luz at [facility] that pt plans to go to SNF at mo for skilled care.
[2022-10-04 12:18] VITALS: BP 121/59; PULSE 64; RESP 16; TEMP 36.8; O2SAT 98
--- NOTE | 2022-10-04 12:18 | DS.PCM_ITS ---
Providers Date of Admission: 09/29/22 Date of Discharge: 10/04/22 Primary Care Physician: Dr. Yohannes Acosta, DO Reason For Visit: FALLS, DEBILITY Diagnosis Discharge Diagnosis (1) Recurrent falls: Status: Acute Code(s): R29.6 - Repeated falls Plan Patient is an 87-year-old lady admitted with multiple falls currently being managed admitted to regular nursing floor with plans for patient to be transf erred to a prison facility 1. Physical deconditioning - Requested for PT OT eval and social sciences lecturer to assist with discharge planning 2. History of pulmonary embolism ? Patient is on apixaban 3. Chronic kidney disease stage III ? Kidney function at baseline 4.. Mild dementia ? Patient is on memantine 5. Hypertension - Blood pressure controlled, home medications continued with dose adjustment as needed 6. Recent urinary tract infection ? Patient was managed with Bactrim 7. GERD ? On PPI 8. Dyslipidemia -Patient is on statin therapy, continued at home dose 9. Depression ? Patient is on sertraline . DVT prophylaxis ? On apixaban Medications at Discharge Home Medications cholecalciferol (vitamin D3) 1,250 mcg (50,000 unit) capsule 1,250 mcg PO FR SUPPLEMENT 09/30/21 cyanocobalamin (vitamin B-12) 1,000 mcg tablet 1,000 mcg PO DAILY SUPPLEMENT 09/30/21 metoprolol tartrate 50 mg tablet 50 mg PO BID HEART 09/30/21 omeprazole 40 mg capsule,delayed release 40 mg PO DAILY GERD 09/30/21 oxybutynin chloride 10 mg tablet,extended release 24 hr 10 mg PO BID OAB 09/30/21 acetaminophen 500 mg capsule 1,000 mg PO TID PRN pain 12/23/21 melatonin 3 mg tablet 6 mg PO QHS SLEEP 12/23/21 apixaban 2.5 mg tablet (Eliquis) 2.5 mg PO BID BLOOD THINNER 06/19/22 amlodipine 10 mg tablet 10 mg PO DAILY BP 09/24/22 lisinopril 20 mg tablet 20 mg PO BID BP 09/24/22 memantine 10 mg tablet 10 mg PO BID MEMORY 09/24/22 nystatin 100,000 unit/gram topical powder (Nystop) 1 applic topical 4X/DAY PRN Skin Irritation 09/24/22 pravastatin 20 mg tablet 20 mg PO DAILY CHOLESTEROL 09/24/22 sertraline 100 mg tablet 100 mg PO DAILY DEPRESSION 09/24/22 albuterol sulfate 2.5 mg/3 mL (0.083 %) solution for nebulization 2.5 mg (3 mL) inhalation Q2H PRN PRN Shortness of Breath/Wheezing #0 mL 10/03/22 psyllium husk (aspartame) 3 gram oral powder packet (Daily Fiber (psyllium- aspartame)) 1 packet PO TID #0 ea 10/03/22 sennosides 8.6 mg-docusate sodium 50 mg tablet (Stool Softener-Stimulant Laxative) 2 tab PO BID PRN PRN Constipation #0 tabs 10/03/22 Hospital Course Summary of Care Provided Minutes Spent on Discharge: 35 Physical Exam Narrative GENERAL: cooperative HEENT: Atraumatic; normocephalic EYES; Anicteric, Normal Conjunctiva NECK; supple, normal thyroid, RESPIRATORY: Diminished to auscultation CARDIOVASCULAR: Regular S1 S2, GI: soft, normoactive bowel sounds, : No Renal angle tenderness; EXTREMITIES: No edema, no clubbing, MUSCULOSKELETAL: no muscle wasting NEURO: Awake; no lateralizing signs. SKIN: No Rash PSYCH; Flat affect Weight / BMI Weight Weight: 73.482 kg Body Mass Index (BMI) 29.6 ABG / Lab / Microbiology Data Result Diagrams: 10/04/22 05:50 10/04/22 05:50 Laboratory: Laboratory Results - last 24 hr 10/04/22 05:50: WBC 6.2, RBC 3.47 L, Hgb 10.3 L, Hct 32.1 L, MCV 92.5, MCH 29.7, MCHC 32.1, RDW Std Deviation 44.9 H, RDW Coeff of Beena 13.4, Plt Count 223, MPV 8.9, Immature Gran % (Auto) 0.600, Neut % (Auto) 61.5, Lymph % (Auto) 24.4, [place] % (Auto) 7.4, Eos % (Auto) 5.6 H, Baso % (Auto) 0.5, Absolute Neuts (auto) 3.8, Absolute Lymphs (auto) 1.52, Nucleated RBC % 0 10/04/22 05:50: Sodium 138, Potassium 3.8, Chloride 108 H, Carbon Dioxide 22.0, Anion Gap 8, BUN 33 H, Creatinine 1.45 H, Estim Creat Clear Calc 22.43, Est GFR (MDRD) Af Amer 44 L, Est GFR (MDRD) Non-Af 36 L, BUN/Creatinine Ratio 22.8 H, Glucose 91, Calcium 9.2 D/C Instructions Discharge Diet: No restrictions Discharge Activity: Return to Normal Activity Call your doctor if you observe: Fever of 101 or Higher, Shortness of breath, Fainting spells and Chest pain Meaningful Use Info Meaningful Use Diagnoses (Choose all that apply): None applicable Discharge Plan Admission Admit Date/Time: 09/29/22 11:18 Attending Provider: Eamon Brooke Primary Care Provider: Yohannes Acosta Consulting Providers: Melly Couch Discharge Orders/Prescriptions Prescriptions: New albuterol sulfate 2.5 mg /3 mL (0.083 %) Solution For Nebulization 2.5 mg inhalation Q2H PRN PRN (Reason: Shortness of Breath/Wheezing) Qty: 0 0RF sennosides-docusate sodium [Stool Softener-Stimulant Laxat] 8.6-50 mg Tablet 2 tab PO BID PRN PRN (Reason: Constipation) Qty: 0 0RF Daily Fiber (psyllium-aspart) 3 gram Powder In Packet 1 packet PO TID Qty: 0 0RF Continued melatonin 3 mg tablet 6 mg PO QHS acetaminophen 500 mg capsule 1,000 mg PO TID PRN (Reason: pain) metoprolol tartrate 50 mg tablet 50 mg PO BID omeprazole 40 mg capsule,delayed release(DR/EC) 40 mg PO DAILY oxybutynin chloride 10 mg tablet extended release 24hr 10 mg PO BID cyanocobalamin (vitamin B-12) 1,000 mcg tablet 1,000 mcg PO DAILY cholecalciferol (vitamin D3) 1,250 mcg (50,000 unit) capsule 1,250 mcg PO FR Eliquis 2.5 mg tablet 2.5 mg PO BID sertraline 100 mg tablet 100 mg PO DAILY amlodipine 10 mg tablet 10 mg PO DAILY nystatin [Nystop] 100,000 unit/gram Powder 1 applic TOPICAL 4X/DAY PRN (Reason: Skin Irritation) memantine 10 mg tablet 10 mg PO BID lisinopril 20 mg tablet 20 mg PO BID pravastatin 20 mg tablet 20 mg PO DAILY Referrals / Follow Up: Yohannes Acosta DO [Primary Care Provider] - Disposition Disposition (needs filled in before D/C Order can be placed): Longterm Facility Charges/Coding Visit Charges Inpatient E&M: 90586 Disch Hosp >30min
--- NOTE | 2022-10-04 12:35 | CASEMGMT ---
Addendum entered by Mari Segundo 10/04/22 12:53: Social Work Pt's son Rich called back, SW let him know pt is going to [facility], to the skilled side, let him know she is leaving by wheelchair van at 2:30. Son states understanding an in agreement. SHWETA Irby Original Note: Social Work Pt is ready for discharge today. PAS/RR and results along w/all discharge instructions sent to [facility] via [employer] along with negative COVID test. SW faxed discharge summary to [facility]. SW set up a wheelchair van with [facility] for 2pm. SW let [facility] know time via [employer] and left a message. SW called son and left him a message as well with time of pickup. SW let clinic charge nurse and pt know time of pickup. No further needs, pt to [facility] skilled today. SHWETA Irby
[2022-10-04 13:18] VITALS: BP 121/59; PULSE 64; RESP 16; TEMP 36.8; O2SAT 98
== END 2022-10-04 14:00 ==
LOC: ED 09-29 04:00 → MS3 09-29 11:30
PROVIDERS: Admitting Provider Internal Medicine; Emergency Provider Emergency Medicine; PCP Student in an Organized Health Care Education/Training Program; Visit Provider Internal Medicine
DX: R53.81 Other malaise (principal); F03.90 Unspecified dementia, unspecified severity, without behavioral disturbance, psychotic disturbance, mood disturbance, and anxiety; E10.22 Type 1 diabetes mellitus with diabetic chronic kidney disease; N18.30 Chronic kidney disease, stage 3 unspecified; Z86.16 Personal history of COVID-19; E78.5 Hyperlipidemia, unspecified; I12.9 Hypertensive chronic kidney disease with stage 1 through stage 4 chronic kidney disease, or unspecified chronic kidney disease; S01.01XD Laceration without foreign body of scalp, subsequent encounter; E86.0 Dehydration; Z79.01 Long term (current) use of anticoagulants; I25.10 Atherosclerotic heart disease of native coronary artery without angina pectoris; K21.9 Gastro-esophageal reflux disease without esophagitis; Z79.899 Other long term (current) drug therapy; N39.0 Urinary tract infection, site not specified; W19.XXXD Unspecified fall, subsequent encounter; I25.2 Old myocardial infarction; Z86.711 Personal history of pulmonary embolism
CPT/HCPCS: 36415; 70450; 72170; 73552; 73560; 80048; 80053; 83735; 84100; 85025; 87426; 96360; 96361; 97110; 97116; 97162; 97166; 97530; 97535; 99221; 99285; A4216; G0378

== ENCOUNTER 2022-12-28 20:07 | Emergency (ER) | payer MEDICAID, MEDICARE, SELFPAY ==
[2022-12-28 20:09] VITALS: BP 104/75; PULSE 74; RESP 16; TEMP 36.4; O2SAT 96; BMI 29.0
--- NOTE | 2022-12-28 20:16 | ED.RN ---
Patient alert and able to answer questions appropriately. Denies new pain. C/O burning with urination.
--- NOTE | 2022-12-28 20:52 | EKG12_ITS ---
Test Reason : DYSRHYTHMIA Blood Pressure : / mmHG Vent. Rate : 073 BPM Atrial Rate : 073 BPM P-R Int : 146 ms QRS Dur : 082 ms QT Int : 404 ms P-R-T Axes : 015 063 069 degrees QTc Int : 445 ms Sinus rhythm with Premature supraventricular complexes Nonspecific ST abnormality Abnormal ECG Confirmed by PEPPER NEWMAN, BRYON ([id number]), photo editor LEANDRO BARCENAS ([id number]) on 12/29/2022 9:24:52 AM Referred By: LUCINA Confirmed By:BRYON PABON MD
[2022-12-28 21:14] LABS: Absolute Lymphocyte Count 1.76 X10^3/uL (0.83-4.51); Absolute Neutrophil Count 4.7 X10^3/uL (2.0-7.7); Basophil# 0.05 X10^3/uL; Basophil% 0.7 % (0-1); Eosinophil# 0.22 X10^3/uL; Hematocrit 32.7 % (37-47); Hemoglobin 10.5 g/dL (12.0-15.0); Lymphocyte # 1.76 X10^3/ul (0.83-4.51); Mean Corp Hgb Conc 32.1 g/dL (32-36); Mean Corpuscular Hgb 28.6 pg (27.0-32.0); Mean Corpuscular Volume 89.1 fL (81-99); Mean Platelet Vol. 9.8 fl (6.2-12.0); Monocyte# 0.52 X10^3/uL; Monocyte% 7.1 % (0-10); NRBC Flagged by Analyzer 0 % (0-5); Neutrophil # 4.72 X10^3/uL (2.7-7.7); Neutrophil % 64.4 % (47-70); Platelet Count 230 K/mm3 (150-450); RBC Distribution Width CV 13.2 % (11.6-14.6); RBC Distribution Width SD 42.9 fl (35.1-43.9); Red Blood Count 3.67 M/mm3 (4.2-5.4); White Blood Count 7.3 K/mm3 (4.4-11.0)
[2022-12-28 21:25] LABS: Mucous, Urine 0 SEEN /hpf (<or=2+); Squamous Epithelial Cells - UA 0 SEEN /hpf (5-10)
--- NOTE | 2022-12-28 21:25 | CT_ITS ---
STUDY: CT BRAIN WITHOUT CONTRAST REASON FOR EXAM: Female, 87 years old. Mental status change RADIATION DOSAGE (If Supplied By Facility): CTDIvol = ( 44.99 ) mGy, DLP = ( 796.11 ) mGycm TECHNIQUE: Transaxial CT imaging of the brain was performed without administration of intravenous contrast material. Individualized dose optimization techniques were used for this CT. COMPARISON: 09/29/2022 FINDINGS: Normal soft tissue structures. Normal calvarium. Normal size ventricles and extra-axial spaces for the patient''s age. Normal white matter tracts of the cerebral hemispheres. Normal basal ganglia and thalami. Normal brainstem. Normal cerebellum. There is no intracranial hemorrhage. There are no findings of an acute ischemic infarction. Normal visualized paranasal sinuses. CT/Brain/Head without Contrast IMPRESSION: Normal unenhanced CT scan of the brain. Electronically Signed: Roberto Welch MD at 21:40 EDT ,
[2022-12-28 21:26] LABS: Anion Gap 8 (5-15); BUN 35 mg/dL (7-18); BUN/Creat Ratio 19.8 RATIO (10-20); Calcium,Total 9.1 mg/dL (8.5-10.1); Chloride 105 mmol/L (98-107); Creatinine, Serum 1.77 mg/dL (0.55-1.02); EST Glomerular Filtration Rate 29 mL/min (>60); Est Glom Filt Rate - Afr Amer 35 mL/min (>60); Estimated Creatinine Clearance 18.38 ml/min; Glucose 106 mg/dL (74-106); Potassium 4.2 mmol/L (3.5-5.1); Sodium Level 137 mmol/L (136-145)
[2022-12-28 21:36] LABS: Color, Urine Yellow (Yellow); Glucose, Dipstick Normal (Normal); Ketone-Dipstick Negative (Negative); Leukocyte Esterase-Dipstick 500 /ul (Negative); Nitrite-Dipstick Negative (Negative); Occult Blood-Urine 50 /ul (Negative); Protein-Dipstick 100 mg/dl (Negative); Specific Gravity, Urine 1.015 (1.002-1.030); Urine Bilirubin Dipstick Negative (Negative); Urine Clarity Cloudy (Clear); Urine Urobilinogen Normal (Normal)
[2022-12-28 21:45] LABS: Bacteria 2+ /hpf (None Seen); Red Blood Cells-Urine 0-5 SEEN /hpf (0-5); White Blood Cells >100 SEEN /hpf (0-5)
[2022-12-28 21:46] LABS: Transitional Epithelial - Ur 0-5 SEEN /hpf (0-5)
[2022-12-28] MEDS: Ceftriaxone 1 GM/50 ML BAG IV (23:27)
[2022-12-28 23:45] VITALS: BP 122/83; PULSE 71; RESP 16; O2SAT 95
--- NOTE | 2022-12-28 23:50 | EDS_ITS ---
HPI History of Present Illness Chief Complaint: Mental Status Change Informant: patient and family Onset/Context/Timing Onset: Today Context: Gradual Onset Timing: Continuous Worsened by: Nothing Relieved by: Nothing Narrative Narrative: Patient presents with some increasing confusion that became worse today. Patient has a history of Alzheimer's dementia but only lives at an assisted living. Patient has a urinary tract infection but has been having difficulty getting the antibiotics. Patient denies any fevers or chills. Patient denies any nausea or vomiting. Son reports that the patient walked away from the assisted living facility today and told the staff that she was walking to work. Patient is alert and oriented to person place, year, and month. [facility] staff told nurse here that they sent her in to be admitted because they are unable to watch her at the assisted living. 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 Nonspecific abnormal unspecified cardiovascular function study NSTEMI (non-ST elevated myocardial infarction) Old myocardial infarction Palpitations Precordial chest pain Pulmonary emboli Thyroid nodule Type 1 diabetes mellitus without complications Ventricular premature depolarization Home Medications cholecalciferol (vitamin D3) 1,250 mcg (50,000 unit) capsule 1,250 mcg PO FR SUPPLEMENT 09/30/21 [History Last Taken 09/22/22] cyanocobalamin (vitamin B-12) 1,000 mcg tablet 1,000 mcg PO DAILY SUPPLEMENT 09/30/21 [History Last Taken 09/23/22] metoprolol tartrate 50 mg tablet 50 mg PO BID HEART 09/30/21 [History Last Taken 09/23/22] omeprazole 40 mg capsule,delayed release 40 mg PO DAILY GERD 09/30/21 [History Last Taken 09/23/22] oxybutynin chloride 10 mg tablet,extended release 24 hr 10 mg PO BID OAB 09/30/21 [History Last Taken 09/23/22] acetaminophen 500 mg capsule 1,000 mg PO TID PRN pain 12/23/21 [History Last Taken 09/23/22] melatonin 3 mg tablet 6 mg PO QHS SLEEP 12/23/21 [History Last Taken 09/23/22] apixaban 2.5 mg tablet (Eliquis) 2.5 mg PO BID BLOOD THINNER 06/19/22 [History Last Taken 09/23/22] amlodipine 10 mg tablet 10 mg PO DAILY BP 09/24/22 [History Last Taken 09/23/22] lisinopril 20 mg tablet 20 mg PO BID BP 09/24/22 [History Last Taken 09/23/22] nystatin 100,000 unit/gram topical powder (Nystop) 1 applic topical 4X/DAY PRN Skin Irritation 09/24/22 [History Last Taken Unknown] pravastatin 20 mg tablet 20 mg PO DAILY CHOLESTEROL 09/24/22 [History Last Taken 09/23/22] sertraline 100 mg tablet 100 mg PO DAILY DEPRESSION 09/24/22 [History Last Taken 09/23/22] albuterol sulfate 2.5 mg/3 mL (0.083 %) solution for nebulization 2.5 mg (3 mL) inhalation Q2H PRN PRN Shortness of Breath/Wheezing #0 mL 10/03/22 [Rx Last Taken Unknown] psyllium husk (aspartame) 3 gram oral powder packet (Daily Fiber (psyllium- aspartame)) 1 packet PO TID #0 ea 10/03/22 [Rx Last Taken Unknown] sennosides 8.6 mg-docusate sodium 50 mg tablet (Stool Softener-Stimulant Laxative) 2 tab PO BID PRN PRN Constipation #0 tabs 10/03/22 [Rx Last Taken Unknown] methimazole 5 mg tablet 2.5 mg (1/2 x 5 mg) PO .M,W,F only #6 tabs 11/23/22 [Rx Last Taken Unknown] Allergy/AdvReac Type Severity Reaction Status Date / Time paroxetine HCl [From Paxil] AdvReac Mild Nausea Verified 12/12/22 08:38 rosuvastatin calcium AdvReac Mild Nausea Verified 12/12/22 08:38 [From Crestor] simvastatin [From Zocor] AdvReac Mild Nausea Verified 12/12/22 08:38 Family History (Reviewed 12/12/22 @ 08:49 by Jamal Elena GRADUATE STUDENT INSTRUCTOR, GRADUATE STUDENT INSTRUCTOR-C) Brother Heart disease Father Myocardial infarction Other Clotting disorder Surgical History History of bladder suspension procedure History of hernia repair History of partial hysterectomy History of thoracic aortic aneurysm repair (~06/22/06) Social History housing: assisted living facility Smoking Status: Never smoker second hand exposure: No alcohol intake: never substance use type: does not use caffeine: Yes Type: carbonated beverages Number of servings: 2 dia/scientology: Rastafari seatbelt use: always do you feel safe at home: Yes ROS ROS ED Constitutional Constitutional ED: Denies chills or fever(s) Eyes Eyes: Denies blurry vision or change in vision ENT ENT ED: Denies rhinorrhea or sore throat Cardiovascular Cardiovascular: Denies chest pain or palpitations Respiratory/Chest Respiratory/Chest: Denies cough or dyspnea Gastrointestinal Gastrointestinal: Denies nausea or vomiting Genitourinary Genitourinary ED: Denies dysuria or hematuria Musculoskeletal Musculoskeletal: Denies back pain or neck pain Integumentary Denies abscess or rash Neurologic Neurologic: Denies headache(s) or weakness Allergic/Immunologic Allergic/Immunologic ED: Denies mouth swelling or urticaria EXAM Physical Exam Const Vital Signs: 12/28/22 20:09 12/28/22 23:45 Temperature 97.5 F L Temperature Source Oral Pulse Rate 74 71 Respiratory Rate 16 16 Blood Pressure 104/75 122/83 H Blood Pressure Mean 84 96 Pulse Ox 96 95 Oxygen Delivery Method Room Air Positive well nourished and well developed General Appearance ED: well developed and NAD HEENT Reports moist mucous membranes Neck supple and no JVD Resp normal respiratory effort and clear to auscultation bilaterally Cardio regular rate and regular rhythm GI normal to inspection, nondistended, normoactive bowel sounds and non-tender Palpation: soft Extremity normal to inspection General Extremety ED: Negative for edema or tenderness General Extremity: Negative for edema Neuro oriented x3, CN's II-XII intact bilaterally and no sensory deficits noted Sensorium / Orientation: alert Motor Exam: strength 5/5 throughout Psych mental status grossly normal Skin no rashes or lesions noted MDM MDM MDM Narrative Medical decision making narrative: Differential diagnosis includes urinary tract infection, sepsis, cardiac dysrhythmia, cardiac ischemia, electrolyte abnormality, stroke, and intracranial bleeding, CT scan of the brain will be obtained to assess for intracranial bl eeding. EKG will be obtained to assess for cardiac dysrhythmia and cardiac ischemia. CBC will be obtained to assess for leukocytosis and anemia. Basic metabolic profile will be obtained to assess for renal function and electrolyte abnormality. Urinalysis will be obtained to assess for urinary tract infection and hematuria. Blood cultures will be obtained to assess for sepsis. Urine culture will be obtained to assess for urinary tract infection. History & Record Review Discussion w/independent historian: Patient and Family Additional record(s) reviewed:: Prior labs Lab Data Attestation: I reviewed the patient's lab results. Lab results narrative: CBC was reviewed. There is a slight anemia with a hemoglobin of 10.5 and hematocrit 32.7. This is stable compared to previous results. Basic metabolic profile was reviewed. BUN was 35 and creatinine was 1.77. These are stable compared to previous results. Urinalysis was reviewed. Leukocyte esterase was 500 with greater than 100 white blood cells and 2+ bacteria. Labs: Laboratory Results - last 24 hr 12/28/22 12/28/22 20:55 21:18 WBC 7.3 RBC 3.67 L Hgb 10.5 L Hct 32.7 L MCV 89.1 MCH 28.6 MCHC 32.1 RDW Std Deviation 42.9 RDW Coeff of Beena 13.2 Plt Count 230 MPV 9.8 Immature Gran % (Auto) 0.800 Neut % (Auto) 64.4 Lymph % (Auto) 24.0 [place]ven % (Auto) 7.1 Eos % (Auto) 3.0 Baso % (Auto) 0.7 Absolute Neuts (auto) 4.7 Absolute Lymphs (auto) 1.76 Nucleated RBC % 0 Sodium 137 Potassium 4.2 Chloride 105 Carbon Dioxide 24.0 Anion Gap 8 BUN 35 H Creatinine 1.77 H Estim Creat Clear Calc 18.38 Est GFR (MDRD) Af Amer 35 L Est GFR (MDRD) Non-Af 29 L BUN/Creatinine Ratio 19.8 Glucose 106 Lactic Acid 1.0 Calcium 9.1 Urine Color Yellow Urine Clarity Cloudy Urine pH 6.0 Ur Specific [place] 1.015 Urine Protein 100 H Urine Glucose (UA) Normal Urine Ketones Negative Urine Occult Blood 50 H Urine Nitrite Negative Urine Bilirubin Negative Urine Urobilinogen Normal Ur Leukocyte Esterase 500 H Urine RBC 0-5 SEEN Urine WBC >100 SEEN Ur Squamous Epith Cells 0 SEEN Ur Transition Epith Cell 0-5 SEEN Urine Bacteria 2+ Urine Mucus 0 SEEN Radiography Diagnostic Testing: Clinical Impression(s) from Imaging Studies Brain CT 12/28/22 21:25 IMPRESSION: Normal unenhanced CT scan of the brain. Electronically Signed: Roberto Welch MD at 21:40 EDT , CT scan of the brain was obtained. There is no acute intracranial abnormality. This was interpreted by the radiologist and was also independently reviewed by myself. EKG Initial EKG: Attestation: I personally reviewed and interpreted this EKG as follows: Interpretation: Sinus Rhythm (With occasional PACs with a rate of 73) and Non-Specific ST Changes Comments: EKG was obtained. On my independent interpretation, it showed a normal sinus rhythm with occasional PACs with a rate of 73. DE interval, QRS interval, and QTc intervals were all normal. [place] was normal. There are nonspecific ST-T wave changes. Prior EKG tracings: available for review Prior: Unchanged (07/09/2020) Treatment and Re-Evaluation :: Urine culture was ordered. Patient was given a dose of Rocephin here. Was instructed to continue her antibiotic as previously prescribed. Patient and family were advised of the findings. Patient does not meet criteria for inpatient admission. Nursing staff called the [facility] who stated that the patient would stay in the assisted living side tonight and then tomorrow morning, the social work staff would work to get the patient admitted to the dementia unit. Family understands and is agreeable with this plan. All questions were answered. Discharge Plan Triage Chief Complaint: Mental Status Change ED Provider: Scottie Caicedo Dx/Rx/DC Orders Clinical Impression: Urinary tract infection Instructions: ED Cystitis Female Adult Prescriptions: No Action melatonin 3 mg tablet 6 mg PO QHS acetaminophen 500 mg capsule 1,000 mg PO TID PRN (Reason: pain) metoprolol tartrate 50 mg tablet 50 mg PO BID omeprazole 40 mg capsule,delayed release(DR/EC) 40 mg PO DAILY oxybutynin chloride 10 mg tablet extended release 24hr 10 mg PO BID cyanocobalamin (vitamin B-12) 1,000 mcg tablet 1,000 mcg PO DAILY cholecalciferol (vitamin D3) 1,250 mcg (50,000 unit) capsule 1,250 mcg PO FR Eliquis 2.5 mg tablet 2.5 mg PO BID methimazole 5 mg tablet 2.5 mg PO .M,W,F only Qty: 6 4RF sertraline 100 mg tablet 100 mg PO DAILY amlodipine 10 mg tablet 10 mg PO DAILY nystatin [Nystop] 100,000 unit/gram Powder 1 applic TOPICAL 4X/DAY PRN (Reason: Skin Irritation) lisinopril 20 mg tablet 20 mg PO BID pravastatin 20 mg tablet 20 mg PO DAILY albuterol sulfate 2.5 mg /3 mL (0.083 %) Solution For Nebulization 2.5 mg inhalation Q2H PRN PRN (Reason: Shortness of Breath/Wheezing) Qty: 0 0RF sennosides-docusate sodium [Stool Softener-Stimulant Laxat] 8.6-50 mg Tablet 2 tab PO BID PRN PRN (Reason: Constipation) Qty: 0 0RF Daily Fiber (psyllium-aspart) 3 gram Powder In Packet 1 packet PO TID Qty: 0 0RF Primary Care Provider: Yohannes Acosta Referrals: Yohannes Acosta DO [Primary Care Provider] - 3-5 Days Disposition Disposition: Home, Self Care
[2022-12-29 00:44] VITALS: BP 122/81
--- NOTE | 2022-12-29 00:44 | ED.RN ---
SPOKE TO ROSE AT [facility], SHE REPORTS BETZY IS ON TOTE TO BE DELIVERED THIS EVENING FOR UTI. SHE ALSO REPORTS TOMORROW JUNO WILL BE ASSESSED FOR TRANSFER OVER TO [facility] SIDE. DR JIMENEZ INFORMED OF SAME AND FAMILY AGREEABLE WITH PLAN.
== END 2022-12-29 00:45 | disposition home or self-care (01) ==
PROVIDERS: Emergency Provider Emergency Medicine; PCP Student in an Organized Health Care Education/Training Program; Visit Provider Emergency Medicine
DX: N39.0 Urinary tract infection, site not specified (principal); G30.9 Alzheimer's disease, unspecified; F02.80 Dementia in other diseases classified elsewhere, unspecified severity, without behavioral disturbance, psychotic disturbance, mood disturbance, and anxiety; E10.9 Type 1 diabetes mellitus without complications; I25.10 Atherosclerotic heart disease of native coronary artery without angina pectoris; I10 Essential (primary) hypertension; E78.5 Hyperlipidemia, unspecified
CPT/HCPCS: 36415; 70450; 80048; 81001; 83605; 85025; 87040; 87077; 87086; 87088; 87186; 93005; 96365; 99285; J7040; A4216

== ENCOUNTER 2023-07-23 11:57 | Emergency (ER) | payer MEDICAID, MEDICARE, SELFPAY ==
[2023-07-23 11:59] VITALS: BP 114/71; PULSE 70; RESP 16; TEMP 36.5; O2SAT 95; BMI 29.8
--- NOTE | 2023-07-23 12:08 | EKG12_ITS ---
Test Reason : Blood Pressure : / mmHG Vent. Rate : 066 BPM Atrial Rate : 066 BPM P-R Int : 150 ms QRS Dur : 076 ms QT Int : 412 ms P-R-T Axes : 038 062 070 degrees QTc Int : 431 ms Normal sinus rhythm Normal ECG Confirmed by PEPPER NEWMAN, BRYON ([id number]), features editor LEANDRO BARCENAS ([id number]) on 07/24/2023 9:42:25 AM Referred By: Confirmed By:BRYON PABON MD
--- NOTE | 2023-07-23 12:13 | CT_ITS ---
INDICATION: trauma EXAMINATION: CT BRAIN - CT Head or Brain W/O Contrast Injection TECHNIQUE: Multiple axial images were obtained of the head without intravenous contrast. A radiation dose optimization technique was used for this scan. IV Contrast dosage and agent: None. RADIATION DOSAGE (If Supplied By Facility): CTDIvol = ( 44.99 ) mGy, DLP = ( 745.49 ) mGycm COMPARISON: Prior study dated: 12/28/2022 FINDINGS: BRAIN PARENCHYMA: No intra- or extra-axial hemorrhage. No evidence of acute infarct. No intracranial mass or mass effect. There is preservation of the chaney/white matter interface. Posterior fossa structures are unremarkable. CSF SPACES: Appropriate for age. No hydrocephalus. Basal cisterns are patent. CALVARIUM, SKULL BASE, PARANASAL SINUSES AND MASTOID AIR CELLS: The sinuses are essentially clear. No discrete lytic or blastic abnormalities. ORBITS: Both globes, extraocular muscles, optic nerves and retrobulbar fat appear unremarkable. CT/Brain/Head without Contrast IMPRESSION: No acute intracranial process. Electronically Signed: Yohan Grey MD at 12:38 EST ,
--- NOTE | 2023-07-23 12:13 | RAD_ITS ---
INDICATION: Fracture on outpatient x-ray EXAMINATION/TECHNIQUE: X-RAY - XR Hip Unilateral with Pelvis when performed; 2-3 Views COMPARISON: Radiographs of the femur of 09/21/2022 FINDINGS: PELVIC BONES: No displaced fracture, destructive or sclerotic lesions. Note that overlapping bowel shadows may however obscure fine detail. Sacroiliac joints are unremarkable. No widening of the pubic symphysis. HIPS: Mild narrowing of the hip joints bilaterally. No displaced fracture seen in this frontal view. SOFT TISSUES: Surgical clips overlying the symphysis pubis. Pelvic calcifications likely due to phleboliths. RAD/HIP, UNI W/ Pelvis 2-3 Views IMPRESSION: No evidence of displaced pelvic or hip fracture. Electronically Signed: Yohan Grey MD at 12:32 EST ,
[2023-07-23 12:33] LABS: Absolute Lymphocyte Count 1.22 X10^3/uL (0.83-4.51); Absolute Neutrophil Count 4.1 X10^3/uL (2.0-7.7); Basophil# 0.02 X10^3/uL; Basophil% 0.3 % (0-1); Eosinophil# 0.21 X10^3/uL; Eosinophils% 3.5 % (0-5); Hematocrit 31.1 % (37-47); Hemoglobin 9.9 g/dL (12.0-15.0); Lymphocyte # 1.22 X10^3/ul (0.83-4.51); Lymphocyte % 20.2 % (19-41); Mean Corp Hgb Conc 31.8 g/dL (32-36); Mean Corpuscular Volume 91.2 fL (81-99); Mean Platelet Vol. 9.3 fl (6.2-12.0); Monocyte# 0.44 X10^3/uL; Monocyte% 7.3 % (0-10); NRBC Flagged by Analyzer 0 % (0-5); Neutrophil # 4.13 X10^3/uL (2.7-7.7); Neutrophil % 68.2 % (47-70); Platelet Count 219 K/mm3 (150-450); RBC Distribution Width CV 15.1 % (11.6-14.6); RBC Distribution Width SD 50.6 fl (35.1-43.9); Red Blood Count 3.41 M/mm3 (4.2-5.4); White Blood Count 6.1 K/mm3 (4.4-11.0)
--- NOTE | 2023-07-23 12:34 | CT_ITS ---
STUDY: CT LEFT HIP REASON FOR EXAM: Female, 88 years old. Left hip pain, concern for occult fracture CONTRAST: None. TECHNIQUE: Transaxial imaging of the hip was performed with reformatted sagittal and coronal images. Individualized dose optimization techniques were used for this CT. COMPARISON: Prior study dated: Plain radiographs done earlier today. FINDINGS: HIP Mild degree of joint space narrowing. Normal acetabulum. Normal femoral neck and intertrochanteric region. Tiny bony densities are seen overlying the greater trochanter of the proximal left femur suggestive of a possible calcific bursitis. VISUALIZED OSSEOUS PELVIS Normal superior and inferior pubic rami. Normal pubic symphysis. Normal bilateral ischial tuberosity. Degenerative changes of the sacroiliac joint. Sclerosis of the symphysis pubis. Atherosclerotic calcification of the common iliac arteries. CT/Extremity Lower without Contra IMPRESSION: Degenerative changes of the left sacroiliac joint as well as mild degree of joint space narrowing of the hip joint. Findings suggestive of possible calcific bursitis overlying the left greater trochanter. Sclerosis of the symphysis pubis. Electronically Signed: Compa Roach MD at 12:56 EST ,
[2023-07-23 12:44] LABS: International Normalized Ratio 1.3; Prothrombin Time (Protime)PT. 15.9 SECONDS (11.7-14.9)
[2023-07-23 12:55] LABS: Anion Gap 3 (5-15); BUN 35 mg/dL (7-18); BUN/Creat Ratio 24.6 RATIO (10-20); Calcium,Total 8.9 mg/dL (8.5-10.1); Chloride 111 mmol/L (98-107); Creatinine, Serum 1.42 mg/dL (0.55-1.02); EST Glomerular Filtration Rate 37 mL/min (>60); Est Glom Filt Rate - Afr Amer 45 mL/min (>60); Estimated Creatinine Clearance 26.78 ml/min; Glucose 94 mg/dL (74-106); Potassium 4.8 mmol/L (3.5-5.1); Sodium Level 140 mmol/L (136-145)
--- OUTSIDE RECORDS SUMMARY | 2023-07-23 13:44 | XMS RPT_ITS | CCD ---
Author Name Unknown Address [id number] [place] [address] Organization [facility] Care Team Providers Care Cutter Banana Room Name Role Phone KINGS LORD Attending Unavailable MOODISKINGS DYER Admitting Unavailable MOODISPALennie, KINGS Jennings Primary Care Unavailable CATHY, YOHANNES DO Consulting Unavailable PROVIDER, UNKNOWN Consulting Unavailable CATHY, YOHANNES DO Consulting Unavailable MENDOZA, DR TRIPP Henriquez Primary Care Unavaila ble MENDOZA, DR TRIPP Henriquez Admitting Unavaila ble MENDOZA, DR TRIPP Henriquez Attending Unavaila ble PROVIDER, UNKNOWN Consulting Unavailable SUKHDEVPAKINGS Hogue Attending Unavailable MOODISKINGS DYER Admitting Unavailable MOODISPAW, KINGS Jennings Primary Care Unavailable CATHY, YOHANNES DO Consulting Unavailable PROVIDER, UNKNOWN Consulting Unavailable MOODKINGS PINA Attending Unavailable MOODISKINGS DYER Admitting Unavailable MOODISPAW, KINGS Jennings Primary Care Unavailable MORGAN, YOHANNES DO Consulting Unavailable PROVIDER, UNKNOWN Consulting Unavailable KINGS LORD Attending Unavailable KINGS LORD Admitting Unavailable CATHY, YOHANNES DO Consulting Unavailable MOODISPAKINGS Hogue Primary Care Unavailable PROVIDER, UNKNOWN Consulting Unavailable MOODISPAKINGS Hogue Attending Unavailable MORGAN, YOHANNES DO Consulting Unavailable MOODISPAKINGS Hogue Admitting Unavailable MOODISPAW, KINGS Jennings Primary Care Unavailable PROVIDER, UNKNOWN Consulting Unavailable KINGS LORD Attending Unavailable CATHY, YOHANNES DO Consulting Unavailable MOODISPAKINGS Hogue Admitting Unavailable MOODISPAW, KINGS Jennings Primary Care Unavailable PROVIDER, UNKNOWN Consulting Unavailable KINGS LORD Attending Unavailable CATHY, YOHANNES DO Consulting Unavailable MOODISKINGS DYER Admitting Unavailable MOODISPALennie, KINGS Jennings Primary Care Unavailable PROVIDER, UNKNOWN Consulting Unavailable FARRUKH BURGER DO Attending Unavailable FARRUKH BURGER DO Admitting Unavailable MORGANYOHANNES DO Referring Unavailable MORGANYOHANNES DO Consulting Unavailable FARRUKH BURGER DO Primary Care Unavailable PROVIDER, UNKNOWN Consulting Unavailable YOHANNES MORGAN DO Referring Unavailable JUSTIN, DR JONATHAN Montero Primary Care Unavailable MORGANYOHANNES DO Consulting Unavailable JUSTIN, DR JONATHAN Montero Admitting Unavailable ANDERSON, DR JONATHAN Montero Attending Unavailable PROVIDER, UNKNOWN Consulting Unavailable MOODISPAW, KINGS Jennings Attending Unavailable YOHANNES MORGAN DO Consulting Unavailable MOODISPAW, KINGS Jennings Admitting Unavailable MOODISPAW, KINGS Jennings Primary Care Unavailable PROVIDER, UNKNOWN Consulting Unavailable MOODISPAW, KINGS Jennings Admitting Unavailable MORGANYOHANNES MORENO DO Consulting Unavailable MOODISPAW, KINGS Jennings Attending Unavailable MOODISPAW, KINGS Jennings Primary Care Unavailable PROVIDER, UNKNOWN Consulting Unavailable MOODISPAW, KINGS Jennings Admitting Unavailable MOODISPAW, KINGS Jennings Primary Care Unavailable MOODISPAW, KINGS Jennings Attending Unavailable YOHANNES MORGAN DO Consulting Unavailable PROVIDER, UNKNOWN Consulting Unavailable MOODISPAW, KINGS Jennings Admitting Unavailable MOODISPAW, KINGS Jennings Primary Care Unavailable MOODISPAW, KINGS Jennings Attending Unavailable MORGANYOHANNES MORENO DO Consulting Unavailable PROVIDER, UNKNOWN Consulting Unavailable MOODISPAW, KINGS Jennings Attending Unavailable MOODISPAW, KINGS Jennings Admitting Unavailable MOODISPAW, KINGS Jennings Primary Care Unavailable YOHANNES MORGAN DO Consulting Unavailable PROVIDER, UNKNOWN Consulting Unavailable Yohannes Morgan DO Primary Care Provider Yohannes Morgan DO Primary Care Provider YOHANNES MORGAN Primary Care Unavailable LAURIE DAWSON Attending Unavailable YOHANNES MORGAN Primary Care Unavailable MERRY BUSTAMANTE Referring Unavailable LAURIE DAWSON Attending Unavailable Allergies Allergy Classification Reported Allergen(s) Allergy Type Date of Onset Reaction(s) Facility (7 sources) HMG-CoA reductase inhibitor; Translations: [ZGIOEAP-ASH-NJY REDUCTASE INHIBITORS] Propensity to adverse reactions to drug 10-31-2017 Intolerance [facility] Work Phone: (7 sources) PARoxetine; Translations: [PAROXETINE] Drug Allergy 08-30-2006 [facility] Work Phone: (7 sources) rosuvastatin; Translations: [ROSUVASTATIN CALCIUM] Drug Allergy 08-30-2006 Intolerance [facility] Work Phone: (7 sources) Simvastatin; Translations: [SIMVASTATIN] Drug Allergy 10-08-2009 Intolerance [facility] Work Phone: Medications Completed/Discontinued Medications Medication Drug Class(es) Dates Sig (Normalized) Sig (Original) acetaminophen 500 mg oral tablet (6 sources) ACETAMINOPHEN OR AL Take 500 mg by mouth as needed. 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] Onset: 01-23-2020 Chronic Aortic; peripheral; and visceral artery aneurysms (6 sources) Aneurysm of thoracic aorta; Translations: [Thoracic aortic aneurysm, without rupture] Onset: 08-21-2005 08-21-2005 Chronic Cataract (6 sources) Bilateral cataracts; Translations: [Unspecified cataract] Onset: 08-23-2011 08-23-2011 Chronic Chronic kidney disease (12 sources) Chronic kidney disease stage 3; Translations: [CKD (chronic kidney disease) stage 3, GFR 30-59 ml/min] Onset: 08-08-2017 11-01-2016 Chronic Delirium, dementia, and amnestic and other cognitive disorders (1 source) Dementia; Translations: [Unspecified dementia without behavioral disturbance] Chronic Disorders of lipid metabolism (6 sources) Pure hypercholesterolemia; Translations: [Pure hypercholesterolemia, unspecified] Onset: 04-28-2005 07-09-2015 Chronic Esophageal disorders (6 sources) Gastroesophageal reflux disease without esophagitis; Translations: [Gastro-esophageal reflux disease without esophagitis] Onset: 08-08-2017 08-08-2017 Chronic Essential hypertension (6 sources) Benign essential hypertension; Translations: [Essential (primary) hypertension] Onset: 02-08-2012 02-08-2012 Chronic Gastritis and duodenitis (6 sources) Chronic gastritis; Translations: [Unspecified chronic gastritis without bleeding] 11-01-2016 Chronic Nonmalignant breast conditions (6 sources) Fibrocystic disease of breast; Translations: [Diffuse cystic mastopathy of unspecified breast] 11-01-2016 Chronic Other aftercare (4 sources) intermission coordinator (current) use of anticoagulants; Translations: [correction (current) use of anticoagulants] Onset: 01-23-2020 Episodic Other nervous system disorders (6 sources) Neuropathy; Translations: [Polyneuropathy, unspecified] Onset: 05-16-2013 05-16-2013 Chronic Other nutritional; endocrine; and metabolic disorders (6 sources) Obesity; Translations: [Obesity, unspecified] Onset: 04-28-2005 04-28-2005 Chronic Residual codes; unclassified (2 sources) Memory impairment; Translations: [Other amnesia] Episodic Spondylosis; intervertebral disc disorders; other back problems (20 sources) Degeneration of lumbar intervertebral disc; Translations: [Other intervertebral disc degeneration, lumbar region] Onset: 09-10-2013 09-10-2013 Chronic Thyroid disorders (12 sources) Multinodular goiter; Translations: [Nontoxic multinodular goiter] Onset: 06-14-2012 06-14-2012 Chronic Past or Other Problems Problem Classification Problem Date Documented Da te Episodic/Chronic Abdominal pain (6 sources) Generalized abdominal pain; Translations: [Generalized abdominal pain] Onset: 08-08-2017 08-08-2017 Episodic Cardiac dysrhythmias (6 sources) Palpitations; Translations: [Palpitations] Onset: 11-23-2006 11-23-2006 Episodic Immunizations and screening for infectious disease (3 sources) Contact with and (suspected) exposure to other viral communicable diseases; Translations: [Contact with and (suspected) exposure to other viral communicable diseases] Onset: 06-08-2020 Episodic Nausea and vomiting (6 sources) Nausea; Translations: [Nausea] Onset: 01-22-2019 01-22-2019 Episodic Nonspecific chest pain (6 sources) Chest pain; Translations: [Chest pain, unspecified] Onset: 04-28-2005 04-28-2005 Episodic Other connective tissue disease (6 sources) Cramp; Translations: [Cramp and spasm] Onset: 10-26-2017 10-26-2017 Episodic Other gastrointestinal disorders (6 sources) Constipation; Translations: [Constipation, unspecified] Onset: 05-16-2013 05-16-2013 Episodic Other gastrointestinal disorders (1 source) Alteration in bowel elimination; Translations: [Change in bowel habit] Onset: 08-08-2017 08-08-2017 Episodic Other gastrointestinal disorders (6 sources) Abdominal bloating; Translations: [Abdominal distension (gaseous)] Onset: 08-08-2017 08-08-2017 Episodic Other gastrointestinal disorders (5 sources) Altered bowel function; Translations: [Change in bowel habit] Onset: 08-08-2017 08-08-2017 Episodic Other non-traumatic joint disorders (6 sources) Shoulder joint pain; Translations: [Pain in unspecified shoulder] Onset: 02-11-2007 02-11-2007 Episodic Other non-traumatic joint disorders (6 sources) Pain in right knee; Translations: [Pain in joint, lower leg] Onset: 07-19-2010 07-19-2010 Episodic Other non-traumatic joint disorders (6 sources) Hip pain; Translations: [Pain in right hip] Onset: 08-08-2017 08-08-2017 Episodic Pulmonary heart disease (6 sources) Pulmonary embolism; Translations: [Other pulmonary embolism without acute cor pulmonale] Onset: 02-20-2018 02-20-2018 Episodic Residual codes; unclassified (6 sources) Insomnia; Translations: [Insomnia, unspecified] Onset: 08-17-2006 08-17-2006 Episodic Spondylosis; intervertebral disc disorders; other back problems (12 sources) Low back pain; Translations: [Lumbago] Onset: 04-01-2007 04-01-2007 Episodic Urinary tract infections (6 sources) Acute cystitis; Translations: [Acute cystitis without hematuria] Onset: 02-20-2018 02-20-2018 Episodic Results Test Name Value Interpretation Reference Range Facil ity Vital Signs Date Time Vital Sign Value Performing Clinician Corina gallegos 08-02-2022 14:19-0500 Body weight 75.75 kg Laurie Dawson PA-C Work Phone: [facility] 08-02-2022 14:19-0500 Diastolic blood pressure 59 mm[Hg] Laurie Dawson PA-C Work Phone: [facility] 08-02-2022 14:19-0500 Heart rate 65 /min Laurie Dawson PA-C Work Phone: [facility] 08-02-2022 14:19-0500 Systolic blood pressure 118 mm[Hg] Laurie Dawson PA-C Work Phone: [facility] 02-02-2022 14:11-0400 Body weight 74.07 kg Laurie Dawson HARSH-C Work Phone: [facility] 02-02-2022 14:11-0400 Diastolic blood pressure 55 mm[Hg] Laurie Dawson HARSH-C Work Phone: [facility] 02-02-2022 14:11-0400 Heart rate 66 /min Laurie Montemayorpaula HOUSE-C Work Phone: [facility] 02-02-2022 14:11-0400 Systolic blood pressure 118 mm[Hg] Laurie Montemayorpaula HOUSE-C Work Phone: [facility] Encounters Encounter Date Encounter Type Care Provider Facility Start: 10-10-2022 Telephone encounter Yohannes lockwood DO Work Phone: [facility] Procedures Date Procedure Procedure Detail Performing Clinician Start: 06-10-2020 Urinalysis KINGS VIDAL Plan of Treatment Date Care Activity Detail Author Start: 10-07-2023 DIABETES SCREEN DIABETES SCREEN [facility] Start: 02-02-2023 Influenza vaccination [facility] Start: 06-04-2022 ADVANCE DIRECTIVE DISCUSSION ADVANCE DIRECTIVE DISCUSSION [facility] Start: 06-04-2022 DEPRESSION ASSESSMENT DEPRESSION ASS ESSMENT [facility] Start: 02-02-2022 Influenza vaccination INFLUENZA (#1) [facility] Start: 06-04-2021 ADVANCE DIRECTIVE DISCUSSION ADVANCE DIRECTIVE DISCUSSION [facility] Start: 12-18-2020 COVID-19 VACCINE (3 - Booster for Pfizer series) COVID-19 VACCINE (3 - Booster for Pfizer series) [facility] Start: 09-15-2020 COVID-19 VACCINE (3 - Booster for Pfizer series) COVID-19 VACCINE (3 - Booster for Pfizer series) [facility] Start: 09-15-2020 COVID-19 VACCINE (3 - Pfizer series) COVID-19 VACCINE (3 - Pfizer series) [facility] Start: 01-22-2009 Urine microalbumin profile DTAP,TDAP ,TD (1 - Tdap) [facility] Start: 1987 SHINGRIX VACCINE (1 of 2) DONALD GRIX VACCINE (1 of 2) [facility] Immunizations Immunization Date Immunization Notes Care Provider Linda luisradha 02-28-2020 influenza, high-dose , quadrivalent vaccine (FLUZONE HIGH DOSE QUADRIVALENT) Laurietrent Dawson PA-C Work Phone: [facility] 04-04-2019 influenza, seasonal, injectable, preservative free [place] Christirin PA-C Work Phone: [facility] 03-20-2019 pneumococcal polysaccharide vaccine, 23 valent [place] Barrazarin PA-C Work Phone: [facility] 03-20-2019 Seasonal, quadrivale nt, recombinant, injectable influenza vaccine, preservative free [place] Bar[place] PA-C Work Phone: [facility] 02-17-2019 influenza, high dose seasonal, preservative-free Laurie Christirin PA-C Work Phone: [facility] Work Phone: 02-18-2018 influenza, high dose seasonal, preservative-free Laurie Loughrin PA-C Work Phone: [facility] Work Phone: 02-26-2017 influenza, high dose seasonal, preservative-free [place] Loughrin PA-C Work Phone: [facility] 02-26-2017 pneumococcal conjuga te vaccine, 13 valent [place] Christirin PA-C Work Phone: [facility] 03-17-2016 influenza, high dose seasonal, preservative-free Laurie Christirin PA-C Work Phone: [facility] 01-06-2015 pneumococcal conjuga te vaccine, 13 valent [place] Loughrin PA-C Work Phone: [facility] Work Phone: 05-03-2012 influenza virus vacc ine, unspecified formulation [place] Christirin PA-C Work Phone: [facility] 03-04-2010 influenza virus vacc ine, unspecified formulation [place] Barraz[place] PA-C Work Phone: [facility] Work Phone: 03-04-2010 pneumococcal polysaccharide vaccine, 23 valent Laurie Loughrin PA-C Work Phone: [facility] Work Phone: 01-21-2009 tetanus and diphther ia toxoids, adsorbed, preservative free, for adult use (2 Lf of tetanus toxoid and 2 Lf of diphtheria toxoid) [place] Loughrin PA-C Work Phone: [facility] 04-07-2008 influenza virus vacc ine, unspecified formulation [place] Loughrin PA-C Work Phone: [facility] 03-28-2007 influenza virus vacc ine, unspecified formulation Laurie Loughrin PA-C Work Phone: [facility] Work Phone: 05-02-2006 influenza virus vacc ine, unspecified formulation Laurie Loughrin PA-C Work Phone: [facility] Work Phone: 08-30-2005 pneumococcal polysaccharide vaccine, 23 valent Laurie Barrazarin PA-C Work Phone: [facility] Work Phone: Payers Date Payer Category Payer Medicaid [facility] MEDICAID [id number] 2021-Present [phone] [address] [place] [address] Medicaid [id number] 2021 Medicare [facility] FOR[facility]LY [facility] [id number] 2021-Present [phone] [address] [place] [address] Medicare [id number] 2021 Medicare [id number] 1935 Unknown [id number] 1935 Unknown [id number] 1937 Unknown [id number] [id number] 1937 Unknown [id number] [id number] 1937 Unknown [id number] [id number] 1937 Unknown [id number] [id number] 1937 Unknown [id number] [id number] 1937 Unknown [id number] [id number] 1937 Unknown [id number] [id number] 1937 Unknown [id number] [id number] 1937 Unknown [id number] [id number] 1937 Unknown [id number] [id number] 1937 Unknown [id number] [id number] 1937 Unknown [id number] [id number] 1935 Unknown [id number] [id number] Medicare [id number] Unknown [id number] Social History Date Type Detail Facility Start: 02-02-2022 Tobacco smoking stat us WYIS Never smoked tobacco [facility] Start: 02-02-2022 Tobacco use and exposure Smoke less tobacco non-user [facility] Start: 02-02-2022 End: 08-02-2022 Alcohol intake Current non-drinker of alcohol (finding) [facility] Start: 1935 Sex Assigned At Not on file [facility] Start: 01-23-2022 End: 02-02-2022 Exposure to SARS-CoV-2 (event) Not sure [facility] Start: 08-02-2022 End: 10-04-2022 History of Social function [facility] Start: 08-02-2022 End: 10-04-2022 Tobacco use panel [facility] National Score (1-10 0), lower number is lower risk 62 [facility] Clinical Notes 06-18-2007 to 10-10-2022 Telephone Encounter - Susan Stern RN - 10/10/2022 10:09 AM EDTTelephone Encounter - Delphine De Los Santos RN - 09/29/2022 10:32 AM EDTTelephone Encounter - Delphine De Los Santos RN - 09/29/2022 8:45 AM EDT Note Date & Type Note Facility 10-10-2022 Miscellaneous Notes Patient has been identified by name and date of : Yes, Provider Dr. Orozco Date 10/10/2022 Time 10:09 Type of form: Home Health Care Orders Form received via: Fax When form is completed, fax form to fax number provided. [phone]. Form has been forwarded to: Provider's desk. Provider name: Dr. Cathy Stern RN documented in this encounter [facility] 09-29-2022 Miscellaneous Notes RN called son back to inform him that Laurie is willing to decrease the Zoloft, but it is unlikely contributing to the recent falls. He was informed that we can decrease medication if he would like. He stated for now that he thinks he would just like to keep it the same dose. They are going to transfer her to skill floor at [facility], which is the same facility as the Assisted Living. RN informed him that if she improves she may be able to return to DC. He was informed that that she may experience confusion, agitation etc related to ER visits, injuries, and new unit. He said she is currently seeing tree's on the TV screen in the ER. He will call us if he decides to change the Zoloft dose. He was encouraged to set up REPPhart so he can have virtual appointment if needed and offered [employer] support phone for assistance with set up. Delphine De Los Santos RN RN received call back from son. Ashia fell again last night. She fell earlier this week,with injury---ania to her head. With last night fall she suffered bruising to her left hip and leg --no fracture. Assisted Living Facility transported her to [facility]. Son is waiting for case management social worker to evaluate her in ER, to determine if her current living situation is meeting her current needs. She receives minimal assistance at the facility. Son expressed that the falls are related to dementia or possibly increase in Zoloft. Zoloft was increased 08/02 to 100mg daily from 50 mg daily). He will update us on Adult Protective Caseworker's recommendation, but would also like advice on medications. Delphine De Los Santos RN documented in this encounter [facility] 09-26-2022 Miscellaneous Notes Phoned Maria Luz at [facility] Home Health and left detailed message with information below on secure voicemail. Okay for below Yohannes Morgan DO Maria Luz with [facility] HH calling and states patient is discharging from [facility] today with [facility] orders for PT, OT and C Aide. Reports patient had recent fall with head laceration and intracranial hemorrhage. [facility] plans to see her 09/27/22. Maria Luz asking if PCP is willing to follow patient for these orders? Call Maria Luz at [phone]. Thank you. documented in this encounter [facility] 09-25-2022 Miscellaneous Notes RN returned call to Michele. She had fall Sunday at 330 am . She suffered a head injury --10 ania to her head. Per son - CT of head was negative. [facility] Son states she refuses to follow directions and use her walker. RN encouraged him to encourage her to use the walker to prevent falls. They have a follow with Laurie 02/02/2023. RN will call him back if Laurie would like to see her sooner. Son stated that Laurie wanted to know about falls at last visit. Son is fine with 02/02/2023 fu. Delphine De Los Santos RN 09/25/2022 Pr son called back, MG RN returned call to son Michele. No answer, VM left for son with call back number for Leather Grainer. Delphine De Los Santos RN 09/25/2022 Pt son called in wanted to give update pt is doing well on medication change, however she did recently has a Bad fall, but seems to be doing better. MG documented in this encounter [facility] 08-02-2022 Note HNO ID: [id number] Author: Grace Thomson Service: ? Author Type: ? Type: Progress Notes Filed: 08/02/2022 2:21 PM Note Text: Ashia Stephenson is a 87 year old year old woman accompanied by: son. Do you have any changes or new concerns you would like to address at the visit today? Per son, She said she has woke up a few times and not know where she is at. She is also gillis and argues with me. Vital Signs: BP 118/59 Pulse 65 Wt 75.8 kg (167 lb) BMI 30.54 kg/m? [facility] 08-02-2022 Note HNO ID: [id number] Author: Laurie Dawson PA-C Service: ? Author Type: Physician Attending Psychiatrist Type: Progress Notes Filed: 08/02/2022 3:16 PM Note Text: Ashia Stephenson 1935 [address] [facility] [address] August 02, 2022 Time: 2:07 PM [facility] FOLLOW-UP NOTE Accompanied by: son SUBJECTIVE Ashia Stephenson is a pleasant 87 year old year old female seen today for a follow up visit. She is being followed for probable late onset AD, although functioning independently. Patient was last seen in Feb 2022. At that time we discussed drinking more water to try to help prevent HAs, we also increased the Zoloft to 75mg daily to help with anxiety. Today we planned to discuss possibly adding Namenda. She did not tolerate Aricept due to rash and dizziness. Today, patient presents for recheck. Sometimes she wakes up at night and she does not know where she is. Son does feel that memory is worse, but mood seems like the biggest issue. She plays cards and does walk at facility. Other interval history: Living Situation: assisted living Falls: negative Sleep: mostly good, but in the last week not sleeping through the night. ADL's is independent with all ADL's. PAST MEDICAL HISTORY Diagnosis Date Adjustment disorder with depressed mood Arrhythmia Cardiomegaly Cholelithiasis 10/08/[address] Apple, EGD 08/2015 CKD (chronic kidney disease) stage 3, GFR 30-59 ml/min (HCC) Diffuse cystic mastopathy Diverticulitis of colon (without mention of hemorrhage)(562.11) Gallstones 06/27/2013 Goiter, unspecified Headache(784.0) 09/25/2006 Hiatal hernia History of nuclear stress test 09/28/2021 completed at [facility] by Dr. Lord-EF 80% Hypertension Hypertensive heart and kidney disease, benign Multinodular goiter Osteoarthrosis, unspecified whether generalized or localized, other specified sites lumbar spine Osteoarthrosis, unspecified whether generalized or localized, other specified sites c-spine Other abnormalities in shape or position of gravid uterus and of neighboring structures, antepartum 3+ Other and unspecified hyperlipidemia Phlebitis and thrombophlebitis of other site Predominant disturbance of emotions 08/17/2006 Rectal bleeding 02/26/2012 Rheumatoid arthritis(714.0) Syncope Thoracic aortic aneurysm (HCC) 2006 Umbilical hernia SOCIAL HISTORY Social History Tobacco Use Smoking status: Never Smokeless tobacco: Never Substance Use Topics Alcohol use: No Drug use: No Social History reviewed by Laurie Dawson PA-C Current Outpatient Medications on File Prior to Visit Medication Sig nystatin (MYCOSTATIN) powder four times daily. sertraline (ZOLOFT) 50 mg tablet Take 1.5 tablets by mouth once daily. ACETAMINOPHEN ORAL Take 500 mg by mouth as needed. amLODIPine (NORVASC) 10 mg tablet Take 10 mg by mouth once daily. oxybutynin ER (DITROPAN XL) 10 mg 24 hr tablet twice daily. 1 tablet po two times daily cyanocobalamin (VITAMIN B-12) 1,000 mcg tab cholecalciferol, Vitamin D3, (VITAMIN D3) 1,250 mcg (50,000 unit) cap capsule melatonin 3 mg tablet Take 6 mg by mouth once daily. omeprazole (PRILOSEC) 40 mg capsule Take 1 capsule by mouth once daily. Take at least 30 minutes before breakfast (Patient taking differently: Take 40 mg by mouth twice daily. Take at least 30 minutes before breakfast) metoprolol succinate ER (TOPROL XL) 50 mg 24 hr tablet Take 1 tablet by mouth twice daily. wheat dextrin (BENEFIBER HEALTHY SHAPE) 5 gram/7.4 gram powd Take 1 teaspoonful by mouth once daily. pravastatin (PRAVACHOL) 10 mg tablet Take 1 tablet by mouth daily at bedtime. (Patient taking differently: Take 20 mg by mouth daily at bedtime.) warfarin (COUMADIN) 4 mg tablet 2 mg four times a week. Managed by [employer] As of 06/13/21 Taking 1 mg tablet po every other day in the evening. Alternating with Warafin 2 mg lisinopril (ZESTRIL, PRINIVIL) 20 mg tablet Take 1 tablet by mouth once daily. (Patient taking differently: Take 20 mg by mouth twice daily.) No current facility-administered medications on file prior to visit. Patient-Reported No flowsheet data found. Activities of Daily Living (ADL) No flowsheet data found. PROMIS-10 No flowsheet data found. PHQ-9 PHQ-9 All Questions 04/29/2018 04/23/2017 Little interest or pleasure in doing things 0 Several days Feeling down, depressed, or hopeless 0 Several days (0-4) minimal depression (5-9) mild depression (10-14) moderate depression (15-19) moderately severe depression (20-27) severe depression Full History of PHQ-9 Scores No flowsheet data found. Sleep 03/11/2021 What is your average total sleep time per night over the past 4 weeks? 6 Hours Insomnia Severity Index 03/11/2021 Difficulty falling asleep 0 Difficulty stayi (more content not included)... [facility] 08-02-2022 Instructions Laurie Dawson PA-C - 08/02/2022 2:54 PM EST -Increase the Zoloft to 100mg daily, starting tomorrow Start Namenda (this is a medication for your memory) -watch for headache or dizziness week one: take 1/2 tablet (5mg) in the morning week two: take 1/2 tablet (5mg) in the morning and take 1/2 tablet (5mg) in the evening week three: take 1 tablet (10mg) in the morning and take 1/2 tablet (5mg) in the evening week four: take 1 tablet (10mg) in the morning and take 1 tablet (10mg) in the evening -this is the full dose Call Laurie in about one month to let me know how you are doing. [phone] -we may add a medication at night that helps with sleep and is a little stronger as far as mood/calmer Plan a 6 months follow up documented in this encounter [facility] 08-02-2022 History of Presen t illness Narrative Ashia Stephenson is a 87 year old year old woman accompanied by: son. Do you have any changes or new concerns you would like to address at the visit today? Per son, She said she has woke up a few times and not know where she is at. She is also gillis and argues with me. Vital Signs: BP 118/59 Pulse 65 Wt 75.8 kg (167 lb) BMI 30.54 kg/m [facility] 1935 [id number] [facility] [address] August 02, 2022 Time: 2:07 PM [facility] FOLLOW-UP NOTE Accompanied by: son SUBJECTIVE Ashia Stephenson is a pleasant 87 year old year old female seen today for a follow up visit. She is being followed for probable late onset AD, although functioning independently. Patient was last seen in Feb 2022. At that time we discussed drinking more water to try to help prevent HAs, we also increased the Zoloft to 75mg daily to help with anxiety. Today we planned to discuss possibly adding Namenda. She did not tolerate Aricept due to rash and dizziness. Today, patient presents for recheck. Sometimes she wakes up at night and she does not know where she is. Son does feel that memory is worse, but mood seems like the biggest issue. She plays cards and does walk at facility. Other interval history: Living Situation: assisted living Falls: negative Sleep: mostly good, but in the last week not sleeping through the night. ADL's is independent with all ADL's. PAST MEDICAL HISTORY Diagnosis Date Adjustment disorder with depressed mood Arrhythmia Cardiomegaly Cholelithiasis 10/08/[address] Apple, EGD 08/2015 CKD (chronic kidney disease) stage 3, GFR 30-59 ml/min ([facility]) Diffuse cystic mastopathy Diverticulitis of colon (without mention of hemorrhage)(562.11) Gallstones 06/27/2013 Goiter, unspecified Headache(784.0) 09/25/2006 Hiatal hernia History of nuclear stress test 09/28/2021 completed at [facility] by Dr. Lord-EF 80% Hypertension Hypertensive heart and kidney disease, benign Multinodular goiter Osteoarthrosis, unspecified whether generalized or localized, other specified sites lumbar spine Osteoarthrosis, unspecified whether generalized or localized, other specified sites c-spine Other abnormalities in shape or position of gravid uterus and of neighboring structures, antepartum 3+ Other and unspecified hyperlipidemia Phlebitis and thrombophlebitis of other site Predominant disturbance of emotions 08/17/2006 Rectal bleeding 02/26/2012 Rheumatoid arthritis(714.0) Syncope Thoracic aortic aneurysm (HCC) 2006 Umbilical hernia SOCIAL HISTORY Social History Tobacco Use Smoking status: Never Smokeless tobacco: Never Substance Use Topics Alcohol use: No Drug use: No Social History reviewed by Laurie Dawson PA-C Current Outpatient Medications on File Prior to Visit Medication Sig nystatin (MYCOSTATIN) powder four times daily. sertraline (ZOLOFT) 50 mg tablet Take 1.5 tablets by mouth once daily. ACETAMINOPHEN ORAL Take 500 mg by mouth as needed. amLODIPine (NORVASC) 10 mg tablet Take 10 mg by mouth once daily. oxybutynin ER (DITROPAN XL) 10 mg 24 hr tablet twice daily. 1 tablet po two times daily cyanocobalamin (VITAMIN B-12) 1,000 mcg tab cholecalciferol, Vitamin D3, (VITAMIN D3) 1,250 mcg (50,000 unit) cap capsule melatonin 3 mg tablet Take 6 mg by mouth once daily. omeprazole (PRILOSEC) 40 mg capsule Take 1 capsule by mouth once daily. Take at least 30 minutes before breakfast (Patient taking differently: Take 40 mg by mouth twice daily. Take at least 30 minutes before breakfast) metoprolol succinate ER (TOPROL XL) 50 mg 24 hr tablet Take 1 tablet by mouth twice daily. wheat dextrin (BENEFIBER HEALTHY SHAPE) 5 gram/7.4 gram powd Take 1 teaspoonful by mouth once daily. pravastatin (PRAVACHOL) 10 mg tablet Take 1 tablet by mouth daily at bedtime. (Patient taking differently: Take 20 mg by mouth daily at bedtime.) warfarin (COUMADIN) 4 mg tablet 2 mg four times a week. Managed by [employer] As of 06/13/21 Taking 1 mg tablet po every other day in the evening. Alternating with Warafin 2 mg lisinopril (ZESTRIL, PRINIVIL) 20 mg tablet Take 1 tablet by mouth once daily. (Patient taking differently: Take 20 mg by mouth twice daily.) No current facility-administered medications on file prior to visit. Patient-Reported No flowsheet data found. Activities of Daily Living (ADL) No flowsheet data found. PROMIS-10 No flowsheet data found. PHQ-9 PHQ-9 All Questions 04/29/2018 04/23/2017 Little interest or pleasure in doing things 0 Several days Feeling down, depressed, or hopeless 0 Several days (0-4) minimal depression (5-9) mild depression (10-14) moderate depression (15-19) moderately severe depression (20-27) severe depression Full History of PHQ-9 Scores No flowsheet data found. Sleep 03/11/2021 What is your average total sleep time per night over the past 4 weeks? 6 Hours Insomnia Severity Index 03/11/2021 Difficulty falling asleep 0 Difficulty staying asleep 1 Problem waking up too early 1 Satisfied/dissatisfied with current sleep pattern 1 Sleep interferes with daily functions 0 Sleep problems noticeable to others 0 Worried/distressed about current sleep problems 0 Score 3 Caregiver-Reported No flowsheet data found. Dementia Severity Rating Scale (DSRS) No flowsheet data found. OBJECTIVE MoCA Past Scores MoCA 02/02/2022 10/04/2020 MOCA TOTAL SCORE 7 13 out of 30 30 Visuospatial/ Executive 1 2 Naming 1 3 Attention 1 2 Language 0 0 Abstraction 1 0 Delayed Recall 0 0 Orientation 3 5 Education Level - 1 Physical Exam: Vital Signs: BP 118/59 Pulse 65 Wt 75.8 kg (167 lb) BMI 30.54 kg/m General: WDWN, NAD. Awake, alert. HEENT: NC/AT. 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 Requested Prescriptions Signed Prescriptions Disp Refills sertraline (ZOLOFT) 100 mg tablet 30 tablet 5 Sig: Take 1 tablet by mouth once daily. memantine (NAMENDA) 10 mg tablet 60 tablet 5 Sig: Take 1 tablet by mouth once daily. -Increase the Zoloft to 100mg daily, starting tomorrow Start Namenda (this is a medication for your memory) -watch for headache or dizziness week one: take 1/2 tablet (5mg) in the morning week two: take 1/2 tablet (5mg) in the morning and take 1/2 tablet (5mg) in the evening week three: take 1 tablet (10mg) in the morning and take 1/2 tablet (5mg) in the evening week four: take 1 tablet (10mg) in the morning and take 1 tablet (10mg) in the evening -this is the full dose Call Laurie in about one month to let me know how you are doing. [phone] -we may add a medication at night that helps with sleep and is a little stronger as far as mood/calmer -Follow up in 6 months I spent a total of 45 minutes on the date of service which included preparing to see the patient, [id number] patient care, completing clinical documentation, and counseling and educating the patient/family/caregiver. VENICE Tate PA-C [facility] documented in this encounter [facility] 02-02-2022 Note HNO ID: [id number] Author: Laurie Dawson PA-C Service: ? Author Type: Physician Attending Psychiatrist Type: Progress Notes Filed: 02/02/2022 4:01 PM Note Text: Ashia Stephenson 1935 [id number] [facility] [address] February 02, 2022 Time: 1:47 PM [facility] FOLLOW-UP NOTE Accompanied by: son SUBJECTIVE Ashia Stephenson is a pleasant 86 year old year old female seen today for a follow up visit. She is being followed for probable late onset AD. Patient was last seen in August 2021. At that time Aricept was already stopped due to rash and dizziness. She was having anxiety, on low dose Zoloft. She also did previously describe WALKER. Today, patient presents for recheck. She initially described nightmares to RN with rooming, but after further discussion states, I don't have nightmares - sounded more like increased confusion upon waking up as far as what has happened or what is real. Residents are on lock down right now for the last 3 weeks due to COVID. She enjoys coloring, word searches. She worries about everything. Gets a lot of scam phone calls. She is still complaining of WALKER. Other interval history: Living Situation: lives in assisted living, typically communal dining, but currently getting meals in room ADL's is independent with all ADL's. PAST MEDICAL HISTORY Diagnosis Date Adjustment disorder with depressed mood Arrhythmia Cardiomegaly Cholelithiasis 10/08/[address] Apple, EGD 08/2015 CKD (chronic kidney disease) stage 3, GFR 30-59 ml/min ([facility]) Diffuse cystic mastopathy Diverticulitis of colon (without mention of hemorrhage)(562.11) Gallstones 06/27/2013 Goiter, unspecified Headache(784.0) 09/25/2006 Hiatal hernia History of nuclear stress test 09/28/2021 completed at [facility] by Dr. Lord-EF 80% Hypertension Hypertensive heart and kidney disease, benign Multinodular goiter Osteoarthrosis, unspecified whether generalized or localized, other specified sites lumbar spine Osteoarthrosis, unspecified whether generalized or localized, other specified sites c-spine Other abnormalities in shape or position of gravid uterus and of neighboring structures, antepartum 3+ Other and unspecified hyperlipidemia Phlebitis and thrombophlebitis of other site Predominant disturbance of emotions 08/17/2006 Rectal bleeding 02/26/2012 Rheumatoid arthritis(714.0) Syncope Thoracic aortic aneurysm (HCC) 2007 Umbilical hernia SOCIAL HISTORY Social History Tobacco Use Smoking status: Never Smokeless tobacco: Never Substance Use Topics Alcohol use: No Drug use: No Social History reviewed by Laurie Dawson PA-C Current Outpatient Medications on File Prior to Visit Medication Sig ACETAMINOPHEN ORAL Take 500 mg by mouth as needed. (Patient not taking: Reported on 08/11/2021 ) amLODIPine (NORVASC) 10 mg tablet Take 10 mg by mouth once daily. oxybutynin ER (DITROPAN XL) 10 mg 24 hr tablet twice daily. 1 tablet po two times daily cyanocobalamin (VITAMIN B-12) 1,000 mcg tab cholecalciferol, Vitamin D3, (VITAMIN D3) 1,250 mcg (50,000 unit) cap capsule melatonin 3 mg tablet Take 6 mg by mouth once daily. sertraline (ZOLOFT) 50 mg tablet Take 1 tablet by mouth once daily. omeprazole (PRILOSEC) 40 mg capsule Take 1 capsule by mouth once daily. Take at least 30 minutes before breakfast famotidine (PEPCID) 20 mg tablet Take 20 mg by mouth once daily. (Patient not taking: Reported on 08/11/2021 ) traMADol (ULTRAM) 50 mg tablet TAKE 1 TO 2 TABLETS BY MOUTH TWICE DAILY NEEDED FOR PAIN FOR UP TO 30 DAYS metoprolol succinate ER (TOPROL XL) 50 mg 24 hr tablet Take 1 tablet by mouth twice daily. polyethylene glycol 3350 (MIRALAX, GLYCOLAX) 17 gram/dose powder Use as directed for Miralax / Gatorade Bowel Prep Kit (Patient not taking: Reported on 08/11/2021 ) Gatorade Sports Drink Use as directed for Miralax / Gatorade Bowel Prep Kit (Patient not taking: Reported on 08/11/2021 ) wheat dextrin (BENEFIBER HEALTHY SHAPE) 5 gram/7.4 gram powd Take 1 teaspoonful by mouth once daily. (Patient not taking: Reported on 08/11/2021 ) traMADol (ULTRAM) 50 mg tablet Take 1-2 tablets by mouth twice daily as needed for Pain for up to 30 days. Do not start before August 27, 2019. traMADol (ULTRAM) 50 mg tablet Take 1-2 tablets by mouth twice daily as needed for Pain for up to 92 days. Do not start before September 27, 2019. pravastatin (PRAVACHOL) 10 mg tablet Take 1 tablet by mouth daily at bedtime. (Patient taking differently: Take 20 mg by mouth daily at bedtime. ) warfarin (COUMADIN) 4 mg tablet 2 mg four times a week. Managed by [employer] As of 06/13/21 Taking 1 mg tablet po every other day in the evening. Alternating with Warafin 2 mg lisinopril (ZESTRIL, PRINIVIL) 20 mg tablet Take 1 tablet by mouth once (more content not included)... [facility] 02-02-2022 Instructions Laurie Dawson PA-C - 02/02/2022 3:05 PM EDT -Make sure you are drinking enough water, this may be contributing to your headaches -a little less pepsi and more water -Increase the Zoloft to 75mg daily to help with anxiety -We will consider adding on Namenda (memory medication) at next visit. I am concerned about the potential side effect of headaches, so I would prefer that those are resolved before trying this medication -We will plan on follow up in about 6 months -you call me anytime if needed Laurie [phone] documented in this encounter [facility] 02-02-2022 Nurse Note Ashia Stephenson is a 86 year old year old woman accompanied by: son. Do you have any changes or new concerns you would like to address at the visit today? Patient reports having nightmares. Outburst of laughter Vital Signs: BP 118/55 Pulse 66 Wt 74.1 kg (163 lb 4.8 oz) BMI 29.87 kg/m documented in this encounter [facility] 02-02-2022 History of Presen t illness Narrative Ashia Stephenson 1935 [id number] [facility] [address] February 02, 2022 Time: 1:47 PM [facility] FOLLOW-UP NOTE Accompanied by: son SUBJECTIVE Ashia Stephenson is a pleasant 86 year old year old female seen today for a follow up visit. She is being followed for probable late onset AD. Patient was last seen in August 2021. At that time Aricept was already stopped due to rash and dizziness. She was having anxiety, on low dose Zoloft. She also did previously describe WALKER. Today, patient presents for recheck. She initially described nightmares to RN with rooming, but after further discussion states, I don't have nightmares - sounded more like increased confusion upon waking up as far as what has happened or what is real. Residents are on lock down right now for the last 3 weeks due to COVID. She enjoys coloring, word searches. She worries about everything. Gets a lot of scam phone calls. She is still complaining of WALKER. Other interval history: Living Situation: lives in assisted living, typically communal dining, but currently getting meals in room ADL's is independent with all ADL's. PAST MEDICAL HISTORY Diagnosis Date Adjustment disorder with depressed mood Arrhythmia Cardiomegaly Cholelithiasis 10/08/[address] Apple, EGD 08/2015 CKD (chronic kidney disease) stage 3, GFR 30-59 ml/min ([facility]) Diffuse cystic mastopathy Diverticulitis of colon (without mention of hemorrhage)(562.11) Gallstones 06/27/2013 Goiter, unspecified Headache(784.0) 09/25/2006 Hiatal hernia History of nuclear stress test 09/28/2021 completed at [facility] by Dr. Lord-EF 80% Hypertension Hypertensive heart and kidney disease, benign Multinodular goiter Osteoarthrosis, unspecified whether generalized or localized, other specified sites lumbar spine Osteoarthrosis, unspecified whether generalized or localized, other specified sites c-spine Other abnormalities in shape or position of gravid uterus and of neighboring structures, antepartum 3+ Other and unspecified hyperlipidemia Phlebitis and thrombophlebitis of other site Predominant disturbance of emotions 08/17/2006 Rectal bleeding 02/26/2012 Rheumatoid arthritis(714.0) Syncope Thoracic aortic aneurysm (HCC) 2006 Umbilical hernia SOCIAL HISTORY Social History Tobacco Use Smoking status: Never Smokeless tobacco: Never Substance Use Topics Alcohol use: No Drug use: No Social History reviewed by Laurie Dawson PA-C Current Outpatient Medications on File Prior to Visit Medication Sig ACETAMINOPHEN ORAL Take 500 mg by mouth as needed. (Patient not taking: Reported on 08/11/2021 ) amLODIPine (NORVASC) 10 mg tablet Take 10 mg by mouth once daily. oxybutynin ER (DITROPAN XL) 10 mg 24 hr tablet twice daily. 1 tablet po two times daily cyanocobalamin (VITAMIN B-12) 1,000 mcg tab cholecalciferol, Vitamin D3, (VITAMIN D3) 1,250 mcg (50,000 unit) cap capsule melatonin 3 mg tablet Take 6 mg by mouth once daily. sertraline (ZOLOFT) 50 mg tablet Take 1 tablet by mouth once daily. omeprazole (PRILOSEC) 40 mg capsule Take 1 capsule by mouth once daily. Take at least 30 minutes before breakfast famotidine (PEPCID) 20 mg tablet Take 20 mg by mouth once daily. (Patient not taking: Reported on 08/11/2021 ) traMADol (ULTRAM) 50 mg tablet TAKE 1 TO 2 TABLETS BY MOUTH TWICE DAILY NEEDED FOR PAIN FOR UP TO 30 DAYS metoprolol succinate ER (TOPROL XL) 50 mg 24 hr tablet Take 1 tablet by mouth twice daily. polyethylene glycol 3350 (MIRALAX, GLYCOLAX) 17 gram/dose powder Use as directed for Miralax / Gatorade Bowel Prep Kit (Patient not taking: Reported on 08/11/2021 ) Gatorade Sports Drink Use as directed for Miralax / Gatorade Bowel Prep Kit (Patient not taking: Reported on 08/11/2021 ) wheat dextrin (BENEFIBER HEALTHY SHAPE) 5 gram/7.4 gram powd Take 1 teaspoonful by mouth once daily. (Patient not taking: Reported on 08/11/2021 ) traMADol (ULTRAM) 50 mg tablet Take 1-2 tablets by mouth twice daily as needed for Pain for up to 30 days. Do not start before August 27, 2019. traMADol (ULTRAM) 50 mg tablet Take 1-2 tablets by mouth twice daily as needed for Pain for up to 92 days. Do not start before September 27, 2019. pravastatin (PRAVACHOL) 10 mg tablet Take 1 tablet by mouth daily at bedtime. (Patient taking differently: Take 20 mg by mouth daily at bedtime. ) warfarin (COUMADIN) 4 mg tablet 2 mg four times a week. Managed by [employer] As of 06/13/21 Taking 1 mg tablet po every other day in the evening. Alternating with Warafin 2 mg lisinopril (ZESTRIL, PRINIVIL) 20 mg tablet Take 1 tablet by mouth once daily. (Patient taking differently: Take 20 mg by mouth twice daily. ) calcium carbonate-mag hydroxid 1,000-200 mg chew Take 1 tablet by mouth once daily. Taking calcium carbonate 1000 mg daily [id number] (Patient not taking: Reported on 08/11/2021 ) Cholecalciferol, Vitamin D3, 1,000 unit cap Take 1 capsule by mouth once daily. (Patient not taking: Reported on 08/11/2021 ) No current facility-administered medications on file prior to visit. Patient-Reported No flowsheet data found. Activities of Daily Living (ADL) No flowsheet data found. PROMIS-10 No flowsheet data found. PHQ-9 PHQ-9 All Questions 04/29/2018 04/23/2017 Little interest or pleasure in doing things 0 Several days Feeling down, depressed, or hopeless 0 Several days (0-4) minimal depression (5-9) mild depression (10-14) moderate depression (15-19) moderately severe depression (20-27) severe depression Full History of PHQ-9 Scores No flowsheet data found. Sleep 03/11/2021 What is your average total sleep time per night over the past 4 weeks? 6 Hours Insomnia Severity Index 03/11/2021 Difficulty falling asleep 0 Difficulty staying asleep 1 Problem waking up too early 1 Satisfied/dissatisfied with current sleep pattern 1 Sleep interferes with daily functions 0 Sleep problems noticeable to others 0 Worried/distressed about current sleep problems 0 Score 3 Caregiver-Reported No flowsheet data found. Dementia Severity Rating Scale (DSRS) No flowsheet data found. OBJECTIVE [place] Cognitive Assessment (MoCA) Version 1 Total Score: 12/31 Visuospatial/Executive Alternating Edna Making: Patient is unable to successfully complete the task. (0) Visuoconstructional Skills (Shape): Patient is unable to successfully complete the task. (0) Visuoconstructional Skills (Clock): Abnormal-Hands, Numbers Visuospatial/Executive Score: 1/5 Naming The patient was able to name: Camel or Dromedary Naming Score: 1/ Memory Trials Memory Trial (1): The patient was able to correctly register: 5 Memory Trial (2): The patient was able to correctly register: /5 Attention Forward Digit Span: Incorrect (0) Backward Digit Span: Correct (+1) Vigilance: Incorrect (0) Attention - Serial 7's: Zero (0) Correct subtractions (0) Attention Score: 16 Language Sentence Repetition (1): Incorrect (0) Sentence Repetition (2): Incorrect (0) Verbal Fluency: Patient produced 9 words. (+0) Language Score: 0/3 Abstraction Abstraction (1): Patient unable to relate similarity. (0) Abstraction (2): Patient successfully related similarity. (+1) Abstraction Score: 1/2 Delayed Recall Word 1: Unable to recall (0) Word 2: Unable to recall (0) Word 3: Unable to recall (0) Word 4: Unable to recall (0) Word 5: Required multiple choice- 'red, blue, green' (0) Delayed Recall Score: 0/5 Orientation The patient was able to answer correctly: year, city, exact place (name of hospital, clinic, office). Orientation Score: 6 Education less than or equal to 12th grade: + Semantic Fluency Patient produced words. MoCA Past Scores MoCA 02/02/2022 10/04/2020 [facility] TOTAL SCORE 7 13 out of 30 30 Visuospatial/ Executive 1 2 Naming 1 3 Attention 1 2 Language 0 0 Abstraction 1 0 Delayed Recall 0 0 Orientation 3 5 Education Level - 1 Physical Exam: Vital Signs: BP 118/55 Pulse 66 Wt 74.1 kg (163 lb 4.8 oz) BMI 29.87 kg/m General: WDWN, NAD. Awake, alert. HEENT: NC/AT. Neurological Exam: Cognition & Orientation:alert Appearance: normal grooming Eye contact: normal Facial expression: appropriate Psychomotor: normal, uses rollator Speech/Language: responds appropriately, softer speech Mood: see HPI Affect: pleasant PDW: no SI: no Self-injurious behavior: no Emotional state: calm but she does laugh nervously in my opinion Thought Process: logical Thought Content: appropriate Hallucinations: Patient Denies, None Noted Judgment: impaired due to lack of insight Insight: fair ------- ASSESSMENT: Dementia from probable late onset AD functioning independently with basic ADLs, living in assisted living Daily HAs Dehydration? Increased anxiety PLAN: -Make sure you are drinking enough water, this may be contributing to your headaches -a little less pepsi and more water -Increase the Zoloft to 75mg daily to help with anxiety -We will consider adding on Namenda (memory medication) at next visit. I am concerned about the potential side effect of headaches, so I would prefer that those are resolved before trying this medication -We will plan on follow up in about 6 months -you call me anytime if needed Laurie [phone] I spent a total of 45 minutes on the date of service which included preparing to see the patient, [id number] patient care, completing clinical documentation, performing a medically appropriate examination, counseling and educating the patient/family/caregiver, and ordering medications, tests, or procedures. VENICE Tate PA-C [facility] documented in this encounter [facility] documented as of this encounter (statuses as of 02/02/2022) [facility]01-[facility]-2008 History of Past illness Narrative* Problem Noted Date Resolved Date Syncope and collapse 06/18/2007 03/07/2016 Counseling for marital and partner problems, uns pecified 09/29/2006 06/09/2009 PAIN ABDOMEN GENERALIZED 03/19/2006 008 Essential hypertension, benign 04/28/2005 0 06/18/2007 Cardiomegaly 02/27/2005 04/28/2005 documented as of this encounter (statuses as of 08/02/2022) [facility] History of Past illness Narrative* Problem Noted Date Resolved Date Syncope and collapse 06/18/2007 03/07/2016 Counseling for marital and partner problems, uns pecified 09/29/2006 06/09/2009 PAIN ABDOMEN GENERALIZED 03/19/2006 008 Essential hypertension, benign 04/28/2005 0 06/18/2007 Cardiomegaly 02/27/2005 04/28/2005 documented as of this encounter (statuses as of 09/26/2022) [facility] History of Past illness Narrative* Problem Noted Date Resolved Date Syncope and collapse 06/18/2007 03/07/2016 Counseling for marital and partner problems, uns pecified 09/29/2006 06/09/2009 PAIN ABDOMEN GENERALIZED 03/19/2006 008 Essential hypertension, benign 04/28/2005 0 06/18/2007 Cardiomegaly 02/27/2005 04/28/2005 documented as of this encounter (statuses as of 10/17/2022) [facility] History of Past illness Narrative* Problem Noted Date Diagnosed Date Resolved Date Syncope and collapse 06/18/2007 016 Counseling for marital and p artner problems, unspecified 09/29/2006 06/09/2009 PAIN ABDOMEN GENERALIZED 03/19/2006 Essential hypertension, benign 04/28/2005 06/18/2007 Cardiomegaly 02/27/2005 04/28/2005 documented as of this encounter (statuses as of 12/16/2022) [facility] Dementia without behavioral disturbance, unspecified dementia type (HCC) Anxiety Anxiety state, unspecified Memory change Memory loss documented in this encounter [facility] Memory change- Primary Memory loss documented in this encounter [facility] Summary Purpose Family History No Family History Records FoundNo Family History Records FoundNo Family History Records FoundNo Family History Records FoundNo Family History Records FoundNo Family History Records Found Advance Directives No Advanced Directives Records FoundNo Advanced Directives Records FoundNo Advanced Directives Records FoundNo Advanced Directives Records FoundNo Advanced Directives Records FoundNo Advanced Directives Records Found Additional Source Comments INFORMATION SOURCE (unrecogn ized section and content) DATE CREATED AUTHOR AUTHOR'S ORGANIZ ATION 09/24/2020 [facility] DATE CREATED AUTHOR AUTHOR'S ORGANIZ ATION 03/01/2021 [facility] ([place]) DATE CREATED AUTHOR AUTHOR'S ORGANIZ ATION 03/20/2021 [facility] DATE CREATED AUTHOR AUTHOR'S ORGANIZ ATION 12/16/2022 [facility] DATE CREATED AUTHOR AUTHOR'S ORGANIZ ATION 01/10/2023 [facility] Source Comments (unrecognize d section and content) In the event this informatio n is protected by the Federal Confidentiality of Alcohol and Drug Abuse Patient Records regulations: The Federal rules restrict any use of the information to criminally investigate or prosecute any alcohol or drug abuse patient.[facility] the event this information is protected by the Federal Confidentiality of Alcohol and Drug Abuse Patient Records regulations: The Federal rules restrict any use of the information to criminally investigate or prosecute any alcohol or drug abuse patient.[facility] the event this information is protected by the Federal Confidentiality of Alcohol and Drug Abuse Patient Records regulations: The Federal rules restrict any use of the information to criminally investigate or prosecute any alcohol or drug abuse patient.[facility] the event this information is protected by the Federal Confidentiality of Alcohol and Drug Abuse Patient Records regulations: The Federal rules restrict any use of the information to criminally investigate or prosecute any alcohol or drug abuse patient.[facility] the event this information is protected by the Federal Confidentiality of Alcohol and Drug Abuse Patient Records regulations: The Federal rules restrict any use of the information to criminally investigate or prosecute any alcohol or drug abuse patient.[facility] the event this information is protected by the Federal Confidentiality of Alcohol and Drug Abuse Patient Records regulations: The Federal rules restrict any use of the information to criminally investigate or prosecute any alcohol or drug abuse patient.[facility] Reason for Visit (unrecogniz ed section and content) Reason Comments Follow Up Established Patient Reason Comments Patient Update Reason Comments [facility] Orders Reason Comments Home Health Orders Form Reason Comments 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 (unrecognized sec tion and content) [facility] Relationship Specialty Start Date End Date Yohannes Morgan DO [address] [place] [address] PCP - General Family Medicine 08/11/14 [facility] Relationship Specialty Start Date End Date Yohnanes Morgan DO [address] [place] [address] PCP - General Family Medicine 08/11/14 [facility] Relationship Specialty Start Date End Date MorganYohannes DO [address] [place] [address] PCP - General Family Medicine 08/11/14 [facility] Relationship Specialty Start Date End Date Yohannes Morgan DO [address] [place] [address] PCP - General Family Medicine 08/11/14 FOR RECORDS PERTAINING TO PATIENTS WHO ARE OR HAVE BEEN ENROLLED IN A CHEMICAL DEPENDENCY/SUBSTANCEABUSE PROGRAM, SOME INFORMATION MAY BE OMITTED. This clinical summary was aggregated from multiple sources. Caution should be exercised in using it in the provision of clinical care. This summary normalizes information from multiple sources, and as a consequence, information in this document may materially change the coding, format and clinical context of patient data. In addition, data may be omitted in some cases. CLINICAL DECISIONS SHOULD BE BASED ON THE PRIMARY CLINICAL RECORDS. [email or web address] [facility]. provides no warranty or guarantee of the accuracy or completeness of information in this document.
[2023-07-23 13:57] VITALS: BP 134/78; PULSE 78; RESP 16; TEMP 36.4; O2SAT 98; O2SAT 99
--- NOTE | 2023-07-23 14:07 | EDS_ITS ---
HPI History of Present Illness Chief Complaint: Fall Narrative Narrative: Patient is an 88-year-old female presenting from nursing facility for concern of possible left hip x-ray. Patient had an x-ray performed on 07/22 (yesterday) which showed high suspicion of nondisplaced intertrochanteric fracture, better assessing by CT imaging as indicated. Patient was sent to the ER for further evaluation. Patient reportedly had a fall anywhere between 9 days and 3 days ago. Has not been able to walk and stand up but is having pain of her left hip with this. No other injuries reported. She does not think she hit her head but states that she might of hit her head over and other falls that she has had. Her son is at the bedside states he supposed use a walker but does not often use it. Patient does have some history of memory deficit and is on Eliquis at baseline. 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 Nonspecific abnormal unspecified cardiovascular function study NSTEMI (non-ST elevated myocardial infarction) Old myocardial infarction Palpitations Precordial chest pain Pulmonary emboli Thyroid nodule Type 1 diabetes mellitus without complications Ventricular premature depolarization Home Medications cholecalciferol (vitamin D3) 1,250 mcg (50,000 unit) capsule 1,250 mcg PO FR SUPPLEMENT 09/30/21 [History Last Taken 07/22/23] cyanocobalamin (vitamin B-12) 1,000 mcg tablet 1,000 mcg PO DAILY SUPPLEMENT 09/30/21 [History Last Taken 09/23/22] metoprolol tartrate 50 mg tablet 50 mg PO BID HEART 09/30/21 [History Last Taken 07/22/23] omeprazole 40 mg capsule,delayed release 40 mg PO DAILY GERD 09/30/21 [History Last Taken 09/23/22] oxybutynin chloride 10 mg tablet,extended release 24 hr 10 mg PO BID OAB 2 [History Last Taken 09/23/22] acetaminophen 500 mg capsule 1,000 mg PO TID PRN pain 12/23/21 [History Last Taken 07/22/23] melatonin 3 mg tablet 6 mg PO QHS SLEEP 12/23/21 [History Last Taken 07/22/23] apixaban 2.5 mg tablet (Eliquis) 2.5 mg PO BID BLOOD THINNER 06/19/22 [History Last Taken 07/22/23] amlodipine 10 mg tablet 10 mg PO DAILY BP 09/24/22 [History Last Taken 07/22/23] lisinopril 20 mg tablet 20 mg PO BID BP 09/24/22 [History Last Taken 09/23/22] nystatin 100,000 unit/gram topical powder (Nystop) 1 applic topical 4X/DAY PRN Skin Irritation 09/24/22 [History Last Taken 07/22/23] pravastatin 20 mg tablet 20 mg PO DAILY CHOLESTEROL 09/24/22 [History Last Taken 09/23/22] sertraline 100 mg tablet 100 mg PO DAILY DEPRESSION 09/24/22 [History Last Taken 09/23/22] albuterol sulfate 2.5 mg/3 mL (0.083 %) solution for nebulization 2.5 mg (3 mL) inhalation Q2H PRN PRN Shortness of Breath/Wheezing #0 mL 10/03/22 [Rx Last Taken Unknown] psyllium husk (aspartame) 3 gram oral powder packet (Daily Fiber (psyllium- aspartame)) 1 packet PO TID #0 ea 10/03/22 [Rx Last Taken Unknown] sennosides 8.6 mg-docusate sodium 50 mg tablet (Stool Softener-Stimulant Laxative) 2 tab PO BID PRN PRN Constipation #0 tabs 10/03/22 [Rx Last Taken Unknown] methimazole 5 mg tablet 2.5 mg (1/2 x 5 mg) PO .M,W,F only #6 tabs 11/23/22 [Rx Last Taken Unknown] estradiol 0.01% (0.1 mg/gram) vaginal cream 1 g vaginal QWEEK 07/23/23 [History Last Taken 07/18/23] mirabegron 50 mg tablet,extended release 24 hr (Myrbetriq) 50 mg PO DAILY 07/23/23 [History Last Taken Unknown] prednisone 20 mg tablet 40 mg (2 x 20 mg) PO DAILY #10 tabs 07/23/23 [Rx Last Taken Unknown] Allergy/AdvReac Type Severity Reaction Status Date / Time paroxetine HCl [From Paxil] AdvReac Mild Nausea Verified 07/23/23 11:58 rosuvastatin calcium AdvReac Mild Nausea Verified 07/23/23 11:58 [From Crestor] simvastatin [From Zocor] AdvReac Mild Nausea Verified 07/23/23 11:58 Family History Brother Heart disease Father Myocardial infarction Other Clotting disorder Surgical History History of bladder suspension procedure History of hernia repair History of partial hysterectomy History of thoracic aortic aneurysm repair (~06/22/06) Social History housing: assisted living facility Smoking Status: Never smoker second hand exposure: No alcohol intake: never substance use type: does not use caffeine: Yes Type: carbonated beverages Number of servings: 2 dia/rastafari: Congregational seatbelt use: always do you feel safe at home: Yes ROS ROS ED Constitutional Constitutional ED: Denies chills or fever(s) Eyes Eyes: Denies change in vision Gastrointestinal Gastrointestinal: Denies abdominal pain, nausea or vomiting Musculoskeletal Musculoskeletal: Reports other Details: left hip pain Integumentary Denies Abrasions or rash Neurologic Neurologic: Denies headache(s), paresthesias or weakness Psychiatric Psychiatric: Denies anxiety Hematologic/Lymphatic Hematologic/Lymphatic: Reports easy bleeding and easy bruising EXAM Physical Exam Const Vital Signs: 07/23/23 11:59 07/23/23 12:08 Temperature 97.7 F L Temperature Source Temporal Pulse Rate 70 Respiratory Rate 16 Respiratory Effort Normal Respiratory Depth Normal Respiratory Pattern Normal Blood Pressure 114/71 Blood Pressure Mean 85 Pulse Ox 95 Oxygen Delivery Method Room Air Room Air Positive well nourished and well developed General Appearance ED: well developed and NAD HEENT Reports moist mucous membranes HEENT Narrative: No hemotympanum appreciated normocephalic and atraumatic Neck full ROM and supple Chest Wall inspection of chest normal and palpation of chest normal Resp normal respiratory effort and clear to auscultation bilaterally Cardio regular rate and regular rhythm GI non-tender and non-distended Extremity Extremity Narrative: Pelvis is stable. No rotational deformity of the lower extremities. No pain with logroll of the left lower extremity but she does have pain with range of motion over the greater trochanter with range of motion of the left hip. No significant pain with direct palpation of the greater trochanter. No pain or deformity of the upper extremities appreciated. Neuro moves all extremities and no sensory deficits noted Sensorium / Orientation: alert, oriented to person and oriented to place Motor Exam: Negative for general weakness Psych mental status grossly normal Skin no wounds Rashes: no rashes MDM MDM MDM Narrative Medical decision making narrative: Patient is evaluated for abnormal x-ray in the setting of a recent fall and left hip pain. X-ray here reviewed by myself as well as radiology does not show any acute fracture. Because of the questionable fracture on the outside x-ray which I do not have access to the images, did obtain a CT of the hip. This does not show any acute fracture but does show calcific bursitis overlying the left greater trochanter which is consistent with her pain. Preoperative labs including an EKG had been obtained which were all largely normal. Patient be started on a burst of prednisone to help with her hip bursitis and given outpatient follow-up with orthopedics. Her son is at the bedside is agreeable with plan of care and will drive her back to her nursing facility. Counseled importance of her using her walker is much as possible to help limit her falls. Because of this question of other fall and her anticoagulation, CT of the brain was obtained which did not show any acute intracranial process. Lab Data Labs: Laboratory Results - last 24 hr 07/23/23 07/23/23 12:06 12:26 WBC 6.1 RBC 3.41 L Hgb 9.9 L Hct 31.1 L MCV 91.2 MCH 29.0 MCHC 31.8 L RDW Std Deviation 50.6 H RDW Coeff of Beena 15.1 H Plt Count 219 MPV 9.3 Immature Gran % (Auto) 0.500 Neut % (Auto) 68.2 Lymph % (Auto) 20.2 Barrow % (Auto) 7.3 Eos % (Auto) 3.5 Baso % (Auto) 0.3 Absolute Neuts (auto) 4.1 Absolute Lymphs (auto) 1.22 Nucleated RBC % 0 PT 15.9 H INR 1.3 Sodium 140 Potassium 4.8 Chloride 111 H Carbon Dioxide 26.0 Anion Gap 3 L BUN 35 H Creatinine 1.42 H Estim Creat Clear Calc 26.78 Est GFR (MDRD) Af Amer 45 L Est GFR (MDRD) Non-Af 37 L BUN/Creatinine Ratio 24.6 H Glucose 94 Calcium 8.9 Radiography Diagnostic Testing: Clinical Impression(s) from Imaging Studies Brain CT 07/23/23 12:13 IMPRESSION: No acute intracranial process. Electronically Signed: Yohan Grey MD at 12:38 EST , Hip/Pelvis X-Ray 07/23/23 12:13 IMPRESSION: No evidence of displaced pelvic or hip fracture. Electronically Signed: Yohan Grey MD at 12:32 EST Reading Location ID and State: [facility] / [place] Tel , Service support , Lower Extremity CT 07/23/23 12:34 IMPRESSION: Degenerative changes of the left sacroiliac joint as well as mild degree of joint space narrowing of the hip joint. Findings suggestive of possible calcific bursitis overlying the left greater trochanter. Sclerosis of the symphysis pubis. Electronically Signed: Compa Roach MD at 12:56 EST , Rhythm Strip Rhythm Strip: Sinus Rhythm Rate: 66 Ectopy: None EKG Initial EKG: Attestation: I personally reviewed and interpreted this EKG as follows: Interpretation: Sinus Rhythm Comments: Normal sinus rhythm at a rate of 66 bpm Normal axis Normal intervals Normal ST segments Discharge Plan Triage Chief Complaint: Fall ED Provider: Allison Garcia Dx/Rx/DC Orders Clinical Impression: Bursitis of left hip Instructions: ED Bursitis, ED Fall Prevention Prescriptions: New prednisone 20 mg tablet 40 mg PO DAILY Qty: 10 0RF No Action melatonin 3 mg tablet 6 mg PO QHS acetaminophen 500 mg capsule 1,000 mg PO TID PRN (Reason: pain) metoprolol tartrate 50 mg tablet 50 mg PO BID omeprazole 40 mg capsule,delayed release(DR/EC) 40 mg PO DAILY oxybutynin chloride 10 mg tablet extended release 24hr 10 mg PO BID Hold Instructions: Order Changed cyanocobalamin (vitamin B-12) 1,000 mcg tablet 1,000 mcg PO DAILY cholecalciferol (vitamin D3) 1,250 mcg (50,000 unit) capsule 1,250 mcg PO FR Eliquis 2.5 mg tablet 2.5 mg PO BID methimazole 5 mg tablet 2.5 mg PO .M,W,F only Qty: 6 4RF sertraline 100 mg tablet 100 mg PO DAILY amlodipine 10 mg tablet 10 mg PO DAILY nystatin [Nystop] 100,000 unit/gram Powder 1 applic TOPICAL 4X/DAY PRN (Reason: Skin Irritation) lisinopril 20 mg tablet 20 mg PO BID pravastatin 20 mg tablet 20 mg PO DAILY albuterol sulfate 2.5 mg /3 mL (0.083 %) Solution For Nebulization 2.5 mg inhalation Q2H PRN PRN (Reason: Shortness of Breath/Wheezing) Qty: 0 0RF sennosides-docusate sodium [Stool Softener-Stimulant Laxat] 8.6-50 mg Tablet 2 tab PO BID PRN PRN (Reason: Constipation) Qty: 0 0RF Daily Fiber (psyllium-aspart) 3 gram Powder In Packet 1 packet PO TID Qty: 0 0RF estradiol 0.01 % (0.1 mg/gram) cream 1 g VAGINAL QWEEK Patient Comments: APPLY VAGINALLY THREE TIMES A WEEK BEFORE BED. Myrbetriq 50 mg tablet extended release 24 hr 50 mg PO DAILY Primary Care Provider: Yohannes Acosta Referrals: Yohannes Acosta DO [Primary Care Provider] - Jareth Hughes MD [Med Staff - Active Staff] - 3-5 Days if not improving Activity Restrictions/Additional Instructions: X-ray and CT of the hip. Do not show acute fracture. CT did show calcific bursitis of the left hip which I suspect is the cause of her pain. She continue to walk on it. She has been prescribed steroids (prednisone) to see if this will calm down the inflammation and help with her pain. Please follow-up with orthopedics as needed. Disposition Disposition: Home, Self Care
== END 2023-07-23 14:54 | disposition home or self-care (01) ==
PROVIDERS: Emergency Provider Emergency Medicine; PCP Student in an Organized Health Care Education/Training Program; Visit Provider Emergency Medicine
DX: M70.62 Trochanteric bursitis, left hip (principal); E10.9 Type 1 diabetes mellitus without complications; I25.10 Atherosclerotic heart disease of native coronary artery without angina pectoris; I10 Essential (primary) hypertension; E78.5 Hyperlipidemia, unspecified; Z79.899 Other long term (current) drug therapy; W19.XXXA Unspecified fall, initial encounter
CPT/HCPCS: 70450; 73502; 73700; 80048; 85025; 85610; 93005; 99284; A4216

== ENCOUNTER 2023-07-27 21:10 | Emergency (ER) | payer MEDICAID, MEDICARE, SELFPAY ==
[2023-07-27 21:10] VITALS: BP 128/68
[2023-07-27 21:11] VITALS: BP 120/54; PULSE 69; RESP 12; TEMP 36.4; O2SAT 96
--- NOTE | 2023-07-27 21:29 | CT_ITS ---
STUDY: CT BRAIN WITHOUT CONTRAST REASON FOR EXAM: Female, 88 years old. Fall on blood thinners RADIATION DOSAGE (If Supplied By Facility): CTDIvol = ( 44.99 ) mGy, DLP = ( 779.24 ) mGycm TECHNIQUE: Transaxial CT imaging of the brain was performed without administration of intravenous contrast material. Individualized dose optimization techniques were used for this CT. COMPARISON: 07/23/2023 FINDINGS: Small left occipital scalp hematoma. Normal calvarium. There is mild cerebral atrophy with widening of the extra-axial spaces and ventricular dilatation. There are areas of decreased attenuation within the white matter tracts of the supratentorial brain, consistent with microvascular disease changes. Normal basal ganglia and thalami. Normal brainstem. Normal cerebellum. There is no intracranial hemorrhage. There are no findings of an acute ischemic infarction. Normal visualized paranasal sinuses. CT/Brain/Head without Contrast IMPRESSION: Small left occipital scalp hematoma. No acute intracranial hemorrhage. Electronically Signed: Ash Prater MD at 22:20 EST ,
--- OUTSIDE RECORDS SUMMARY | 2023-07-27 21:44 | XMS RPT_ITS | CCD ---
Author Name Unknown Address [address] [place] [address] Organization [facility] Care Team Providers Care Qa Tech Name Role Phone KINGS LORD Attending Unavailable [...] Facility (7 sources) HMG-CoA reductase inhibitor; Translations: [PVGACNA-UDH-FAX REDUCTASE INHIBITORS] Propensity to adverse reactions to drug 10-31-2017 Intolerance [facility] Work Phone: (7 sources) PARoxetine; Translations: [PAROXETINE] Drug Allergy 08-30-2006 [facility] Work Phone: (7 sources) rosuvastatin; Translations: [ROSUVASTATIN CALCIUM] Drug Allergy 08-30-2006 Intolerance [facility] Work Phone: (7 sources) Simvastatin; Translations: [SIMVASTATIN] Drug Allergy 10-08-2009 Intolerance [facility] Work Phone: Medications Completed/Discontinued Medications Medication [...] breast] 11-01-2016 Chronic Other 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; Translations: [MCC (current) use of anticoagulants] Onset: 01-23-2020 Episodic [...] 75.75 kg Laurie Dawson PA-C Work Phone: [facility] 08-02-2022 14:19-0500 Diastolic blood pressure 59 mm[Hg] Laurie Dawson PA-C Work Phone: [facility] 08-02-2022 14:19-0500 Heart rate 65 /min Laurie Dawson PA-C Work Phone: [facility] 08-02-2022 14:19-0500 Systolic blood pressure 118 mm[Hg] Laurie Dawson PA-C Work Phone: [facility] 02-02-2022 14:11-0400 Body weight 74.07 kg Laurie Dawson HARSH-C Work Phone: [facility] 02-02-2022 14:11-0400 Diastolic blood pressure 55 mm[Hg] Laurie Dawson HARSH-C Work Phone: [facility] 02-02-2022 14:11-0400 Heart rate 66 /min Laurie Montemayorpuala HOUSE-C Work Phone: [facility] 02-02-2022 14:11-0400 Systolic blood pressure 118 mm[Hg] Laurie Montemayorpaula HOUSE-C Work Phone: [facility] Encounters Encounter Date Encounter Type Care Provider Facility Start: 10-10-2022 Telephone encounter Yohannes lockwood DO Work Phone: [facility] [place] Procedures Date Procedure Procedure Detail Performing Clinician Start: 06-10-2020 Urinalysis KINGS VIDAL Plan of Treatment Date Care Activity Detail Author Start: 10-07-2023 DIABETES SCREEN DIABETES SCREEN [facility] Start: 02-02-2023 Influenza vaccination [facility] Start: 06-04-2022 ADVANCE DIRECTIVE DISCUSSION ADVANCE DIRECTIVE DISCUSSION [facility] Start: 06-04-2022 DEPRESSION ASSESSMENT DEPRESSION ASS ESSMENT [facility] Start: 02-02-2022 Influenza vaccination INFLUENZA (#1) [facility] Start: 06-04-2021 ADVANCE DIRECTIVE DISCUSSION ADVANCE DIRECTIVE DISCUSSION [facility] Start: 12-18-2020 COVID-19 VACCINE (3 - Booster for Pfizer series) COVID-19 VACCINE (3 - Booster for Pfizer series) [facility] Start: 09-15-2020 COVID-19 VACCINE (3 - Booster for Pfizer series) COVID-19 VACCINE (3 - Booster for Pfizer series) [facility] Start: 09-15-2020 COVID-19 VACCINE (3 - Pfizer series) COVID-19 VACCINE (3 - Pfizer series) [facility] Start: 01-22-2009 Urine microalbumin profile DTAP,TDAP ,TD (1 - Tdap) [facility] Start: 1987 SHINGRIX VACCINE (1 of 2) DONALD GRIX VACCINE (1 of 2) [facility] Immunizations Immunization Date Immunization Notes Care Provider Linda luisradha 02-28-2020 influenza, high-dose , quadrivalent vaccine (FLUZONE HIGH DOSE QUADRIVALENT) Laurietrent Dawson PA-C Work Phone: [facility] 04-04-2019 influenza, seasonal, injectable, preservative free Stella Christirin PA-C Work Phone: [facility] 03-20-2019 pneumococcal polysaccharide vaccine, 23 valent Stellatrent Barrazarin PA-C Work Phone: [facility] 03-20-2019 Seasonal, quadrivale nt, recombinant, injectable influenza vaccine, preservative free Stellatrent Barrazarin PA-C Work Phone: [facility] 02-17-2019 influenza, high dose seasonal, preservative-free Laurie Christirin PA-C Work Phone: [facility] Work Phone: 02-18-2018 influenza, high dose seasonal, preservative-free Laurie Loughrin PA-C Work Phone: [facility] Work Phone: 02-26-2017 influenza, high dose seasonal, preservative-free Stella Loughrin PA-C Work Phone: [facility] 02-26-2017 pneumococcal conjuga te vaccine, 13 valent Stella Christirin PA-C Work Phone: [facility] 03-17-2016 influenza, high dose seasonal, preservative-free Laurie Christirin PA-C Work Phone: [facility] 01-06-2015 pneumococcal conjuga te vaccine, 13 valent Stella Loughrin PA-C Work Phone: [facility] Work Phone: 05-03-2012 influenza virus vacc ine, unspecified formulation Stella Christirin PA-C Work Phone: [facility] 03-04-2010 influenza virus vacc ine, unspecified formulation Stellatrent Barrazarin PA-C Work Phone: [facility] Work Phone: 03-04-2010 pneumococcal polysaccharide vaccine, 23 valent Laurie Loughrin PA-C Work Phone: [facility] Work Phone: 01-21-2009 tetanus and diphther ia toxoids, adsorbed, preservative free, for adult use (2 Lf of tetanus toxoid and 2 Lf of diphtheria toxoid) Stella Loughrin PA-C Work Phone: [facility] 04-07-2008 influenza virus vacc ine, unspecified formulation Stella Loughrin PA-C Work Phone: [facility] 03-28-2007 influenza virus vacc ine, unspecified formulation Laurie Loughrin PA-C Work Phone: [facility] Work Phone: 05-02-2006 influenza virus vacc ine, unspecified formulation Laurie Loughrin PA-C Work Phone: [facility] Work Phone: 08-30-2005 pneumococcal polysaccharide vaccine, 23 valent Laurie Barrazarin PA-C Work Phone: [facility] Work Phone: Payers Date Payer Category Payer Medicaid [facility] A[facility] MEDICAID [id number] 2021-Present [phone] [address] [place] [address] Medicaid [id number] 2021 Medicare [facility] ARE [facility] [id number] 2021-Present [phone] [address] [place] [address] Medicare [id number] 2021 Medicare [id number] 1935 Unknown [id number] 1935 Unknown [id number] 1935 Unknown [id number] [id number] 1937 Unknown [id number] [id number] 1937 Unknown [id number] [id number] 1937 Unknown [id number] [id number] 1937 Unknown [id number] [id number] 1937 Unknown [id number] [id number] 1937 Unknown [id number] [id number] 1937 Unknown [id number] [id number] 1937 Unknown [id number] [id number] 1937 Unknown [id number] [id number] 1937 Unknown [id number] [id number] 1937 Unknown [id number] [id number] 1935 Unknown [id number] [id number] Medicare [id number] Unknown [id number] Social History Date Type Detail Facility Start: 02-02-2022 Tobacco smoking stat us INIS Never smoked tobacco [facility] Start: 02-02-2022 Tobacco use and exposure Smoke less tobacco non-user [facility] Start: 02-02-2022 End: 08-02-2022 Alcohol intake Current non-drinker of alcohol (finding) [facility] Start: 1935 Sex Assigned At Not on file [facility] Start: 01-23-2022 End: 02-02-2022 Exposure to SARS-CoV-2 (event) Not sure [facility] Start: 08-02-2022 End: 10-04-2022 History of Social function [facility] Start: 08-02-2022 End: 10-04-2022 Tobacco use panel [facility] National Score (1-10 0), lower number is lower risk 62 [facility] Clinical Notes 06-18-2007 to 10-10-2022 Telephone [...] completed, fax form to fax number provided. [phone]. Form has been forwarded to: Provider's desk. Provider name: Dr. Cathy Stenr RN documented in this encounter [facility] 09-29-2022 Miscellaneous Notes RN called son [...] to transfer her to skill floor at [facility], which is the same facility as the Assisted Living. RN informed him that if she improves she may be able to return to [place]. He was informed that that she may experience confusion, agitation etc related to ER visits, injuries, and new unit. He said she is currently seeing tree's on the TV screen in the ER. He will call us if he decides to change the Zoloft dose. He was encouraged to set up [employer] so he can have virtual appointment if needed and offered [employer] support phone for assistance with set up. Delphine De Los Santos RN RN received call back from son. Ashia fell again last night. She fell earlier this week,with injury---ania to her head. With last night fall she suffered bruising to her left hip and leg --no fracture. Assisted Living Facility transported her to [facility]. Son is waiting for professor of social work to evaluate her in ER, to determine if her current living situation is meeting her current needs. She receives minimal assistance at the facility. Son expressed that the falls are related to dementia or possibly increase in Zoloft. Zoloft was increased 08/02 to 100mg daily from 50 mg daily). He will update us on Director Emergency Services's recommendation, but would also like advice on medications. Delphine De Los Santos RN documented in this encounter [facility] 09-26-2022 Miscellaneous Notes Phoned Maria Luz at [facility] and left detailed message with information below on secure voicemail. Okay for below Yohannes Morgan DO Maria Luz with [facility] HH calling and states patient is discharging from [facility] today with [facility] orders for PT, OT and C Aide. Reports patient had recent fall with head laceration and intracranial hemorrhage. [facility] plans to see her 09/27/22. Maria Luz asking if PCP is willing to follow patient for these orders? Call Maria Luz at [phone]. Thank you. documented in this encounter [facility] 09-25-2022 Miscellaneous Notes RN returned call to Michele. She had fall Sunday at 330 am . She suffered a head injury --10 ania to her head. Per son - CT of head was negative. [facility] Son states she refuses to [...] for son with call back number for [employer]. Delphine De Los Santos RN 09/25/2022 Pt son called in wanted to give update pt is doing well on medication change, however she did recently has a Bad fall, but seems to be doing better. MG documented in this encounter [facility] 08-02-2022 Note HNO ID: [id number] Author: Grace Thomson Service: ? Author Type: [...] 75.8 kg (167 lb) BMI 30.54 kg/m? [facility] 08-02-2022 Note HNO ID: [id number] Author: Laurie Dawson PA-C Service: ? Author Type: Physician Senior Investment Manager Type: Progress Notes Filed: 08/02/2022 3:16 PM Note Text: Ashia Stephenson 1935 [address] [facility] [address] August 02, 2022 Time: 2:07 PM [facility] FOLLOW-UP NOTE Accompanied by: [...] of nuclear stress test 09/28/2021 completed at [facility] by Dr. Lord-EF 80% Hypertension Hypertensive heart [...] 0 Difficulty stayi (more content not included)... [facility] 08-02-2022 Instructions Laurie Dawson PA-C - 08/02/2022 [...] let me know how you are doing. [phone] -we may add a medication at night that helps with sleep and is a little stronger as far as mood/calmer Plan a 6 months follow up documented in this encounter [facility] 08-02-2022 History of Presen t illness [...] 30.54 kg/m Ashia Stephenson 1935 [address] [facility] [address] August 02, 2022 Time: 2:07 PM [facility] FOLLOW-UP NOTE Accompanied by: [...] kidney disease) stage 3, GFR 30-59 ml/min ([facility]) Diffuse cystic mastopathy Diverticulitis of colon (without mention of hemorrhage)(562.11) Gallstones 06/27/2013 Goiter, unspecified Headache(784.0) 09/25/2006 Hiatal hernia History of nuclear stress test 09/28/2021 completed at [facility] by Dr. Lord-EF 80% Hypertension Hypertensive heart [...] mg four times a week. Managed by [employer] As of 06/13/21 Taking 1 mg tablet [...] let me know how you are doing. [phone] -we may add a medication at night that helps with sleep and is a little stronger as far as mood/calmer -Follow up in 6 months I spent a total of 45 minutes on the date of service which included preparing to see the patient, [id number] patient care, completing clinical documentation, and counseling and educating the patient/family/caregiver. VENICE Tate PA-C [facility] documented in this encounter [facility] 02-02-2022 Note HNO ID: [id number] Author: Laurie Dawson PA-C Service: ? Author Type: Physician Senior Investment Manager Type: Progress Notes Filed: 02/02/2022 4:01 PM Note Text: Ashia Stephenson 1935 [address] [facility] [id number] February 02, 2022 Time: 1:[address] [facility] FOLLOW-UP NOTE Accompanied by: son SUBJECTIVE [...] kidney disease) stage 3, GFR 30-59 ml/min ([facility]) Diffuse cystic mastopathy Diverticulitis of colon (without mention of hemorrhage)(562.11) Gallstones 06/27/2013 Goiter, unspecified Headache(784.0) 09/25/2006 Hiatal hernia History of nuclear stress test 09/28/2021 completed at [facility] by Dr. Lord-EF 80% Hypertension Hypertensive heart [...] by mouth once (more content not included)... [facility] 02-02-2022 Instructions Laurie Dawson PA-C - 02/02/2022 [...] -you call me anytime if needed Laurie [phone] documented in this encounter [facility] 02-02-2022 Nurse Note Ashia Stephenson is a 86 year old year old woman accompanied by: son. Do you have any changes or new concerns you would like to address at the visit today? Patient reports having nightmares. Outburst of laughter Vital Signs: BP 118/55 Pulse 66 Wt 74.1 kg (163 lb 4.8 oz) BMI 29.87 kg/m documented in this encounter [facility] 02-02-2022 History of Presen t illness Narrative Ashia Stephenson 1935 [address] [facility] [id number] February 02, 2022 Time: 1:47 PM [facility] FOLLOW-UP NOTE Accompanied by: [...] kidney disease) stage 3, GFR 30-59 ml/min ([facility]) Diffuse cystic mastopathy Diverticulitis of colon (without mention of hemorrhage)(562.11) Gallstones 06/27/2013 Goiter, unspecified Headache(784.0) 09/25/2006 Hiatal hernia History of nuclear stress test 09/28/2021 completed at [facility] by Dr. Lord-EF 80% Hypertension Hypertensive heart [...] daily. Taking calcium carbonate 1000 mg daily [id number] (Patient not taking: Reported on 08/11/2021 ) [...] Scale (DSRS) No flowsheet data found. OBJECTIVE [place] Cognitive Assessment (MoCA) Version 1 Total Score: 12/31 Visuospatial/Executive Alternating [place] Making: Patient is unable to successfully complete [...] -you call me anytime if needed Laurie [phone] I spent a total of 45 minutes on the date of service which included preparing to see the patient, [id number] patient care, completing clinical documentation, performing a medically appropriate examination, counseling and educating the patient/family/caregiver, and ordering medications, tests, or procedures. VENICE Tate PA-C [facility] documented in this encounter [facility] documented as of this encounter (statuses as of 02/02/2022) [facility] History of Past illness Narrative* Problem Noted Date Resolved Date Syncope and collapse 06/18/2007 03/07/2016 Counseling for marital and partner problems, uns pecified 09/29/2006 06/09/2009 PAIN ABDOMEN GENERALIZED 03/19/2006 008 Essential hypertension, benign 04/28/2005 0 06/18/2007 Cardiomegaly 02/27/2005 04/28/2005 documented as of this encounter (statuses as of 08/02/2022) [facility] History of Past illness Narrative* Problem Noted Date Resolved Date Syncope and collapse 06/18/2007 03/07/2016 Counseling for marital and partner problems, uns pecified 09/29/2006 06/09/2009 PAIN ABDOMEN GENERALIZED 03/19/2006 008 Essential hypertension, benign 04/28/2005 0 06/18/2007 Cardiomegaly 02/27/2005 04/28/2005 documented as of this encounter (statuses as of 09/26/2022) [facility] History of Past illness Narrative* Problem Noted Date Resolved Date Syncope and collapse 06/18/2007 03/07/2016 Counseling for marital and partner problems, uns pecified 09/29/2006 06/09/2009 PAIN ABDOMEN GENERALIZED 03/19/2006 008 Essential hypertension, benign 04/28/2005 0 06/18/2007 Cardiomegaly 02/27/2005 04/28/2005 documented as of this encounter (statuses as of 10/17/2022) [facility] History of Past illness Narrative* Problem Noted Date Diagnosed Date Resolved Date Syncope and collapse 06/18/2007 016 Counseling for marital and p artner problems, unspecified 09/29/2006 06/09/2009 PAIN ABDOMEN GENERALIZED 03/19/2006 Essential hypertension, benign 04/28/2005 06/18/2007 Cardiomegaly 02/27/2005 04/28/2005 documented as of this encounter (statuses as of 12/16/2022) [facility] Diagnosis Dementia without behavioral disturbance, unspecified dementia type (HCC) Anxiety Anxiety state, unspecified Memory change Memory loss documented in [facility] Diagnosis Memory change- Primary Memory loss documented in this encounter [facility] Summary Purpose Family History No Family [...] DATE CREATED AUTHOR AUTHOR'S ORGANIZ ATION 09/24/2020 [facility] DATE CREATED AUTHOR AUTHOR'S ORGANIZ ATION 03/01/[address] [facility] ([place]) DATE CREATED AUTHOR AUTHOR'S ORGANIZ ATION 03/20/2021 [facility] DATE CREATED AUTHOR AUTHOR'S ORGANIZ ATION 12/16/2022 [facility] DATE CREATED AUTHOR AUTHOR'S ORGANIZ ATION 01/10/2023 [facility] Source Comments (unrecognize d section and content) In the event this informatio n is protected by the Federal Confidentiality of Alcohol and Drug Abuse Patient Records regulations: The Federal rules restrict any use of the information to criminally investigate or prosecute any alcohol or drug abuse patient.[facility] the event this information is protected by the Federal Confidentiality of Alcohol and Drug Abuse Patient Records regulations: The Federal rules restrict any use of the information to criminally investigate or prosecute any alcohol or drug abuse patient.[facility] the event this information is protected by the Federal Confidentiality of Alcohol and Drug Abuse Patient Records regulations: The Federal rules restrict any use of the information to criminally investigate or prosecute any alcohol or drug abuse patient.[facility] the event this information is protected by the Federal Confidentiality of Alcohol and Drug Abuse Patient Records regulations: The Federal rules restrict any use of the information to criminally investigate or prosecute any alcohol or drug abuse patient.[facility] the event this information is protected by the Federal Confidentiality of Alcohol and Drug Abuse Patient Records regulations: The Federal rules restrict any use of the information to criminally investigate or prosecute any alcohol or drug abuse patient.[facility] the event this information is protected by the Federal Confidentiality of Alcohol and Drug Abuse Patient Records regulations: The Federal rules restrict any use of the information to criminally investigate or prosecute any alcohol or drug abuse patient.[facility] Reason for Visit (unrecogniz ed section and content) Reason Comments Follow Up Established Patient Reason Comments Patient Update Reason Comments [facility] Orders Reason Comments Home Health Orders Form Reason Comments [facility] [employer] - Other Care Teams (unrecognized sec tion and content) Qa Tech Relationship Specialty Start Date End Date Yohannes Morgan DO [address] [place] [address] PCP - General Family Medicine 08/11/14 Qa Tech Relationship Specialty Start Date End Date Yohannes Morgan DO [address] [place] [address] PCP - General Family Medicine 08/11/14 Qa Tech Relationship Specialty Start Date End Date MorganYohannes DO [address] [place] [address] PCP - General Family Medicine 08/11/14 Qa Tech Relationship Specialty Start Date End Date Yohannes Morgan DO [address] [place] [address] PCP - General Family Medicine 08/11/14 FOR [...] BE BASED ON THE PRIMARY CLINICAL RECORDS. [employer] [facility]. provides no warranty or guarantee of the accuracy or completeness of information in this document.
[2023-07-27 22:22] LABS: Mucous, Urine 0 SEEN /hpf (<or=2+)
[2023-07-27 22:35] LABS: Color, Urine Yellow (Yellow); Glucose, Dipstick Normal (Normal); Ketone-Dipstick Negative (Negative); Leukocyte Esterase-Dipstick 500 /ul (Negative); Nitrite-Dipstick Positive (Negative); Occult Blood-Urine 10 /ul (Negative); Protein-Dipstick 15 mg/dl (Negative); Urine Bilirubin Dipstick Negative (Negative); Urine Urobilinogen Normal (Normal)
[2023-07-27 22:51] LABS: Red Blood Cells-Urine 0-5 SEEN /hpf (0-5); Squamous Epithelial Cells - UA 5-10 SEEN /hpf (5-10); Urine Clarity Sl Cldy (Clear); White Blood Cells 25-50 SEEN /hpf (0-5)
[2023-07-27 22:52] LABS: Bacteria RARE /hpf (None Seen)
[2023-07-27 23:10] VITALS: BP 131/78; PULSE 75; RESP 16; TEMP 36.7; O2SAT 93
--- NOTE | 2023-07-27 23:29 | ED.VIS.FALL ---
HPI HPI - Fall History of Present Illness Chief Complaint: Fall PFSH PFSH Medical History (Updated 07/27/23 @ 23:[address] 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 Nonspecific abnormal unspecified cardiovascular function study NSTEMI (non-ST elevated myocardial infarction) Old myocardial infarction Palpitations Precordial chest pain Pulmonary emboli Thyroid nodule Ventricular premature depolarization Home Medications cyanocobalamin (vitamin B-12) 1,000 mcg tablet 1,000 mcg PO DAILY SUPPLEMENT 09/30/21 [History Last Taken 09/23/22] metoprolol tartrate 50 mg tablet 50 mg PO BID HEART 09/30/21 [History Last Taken 07/22/23] omeprazole 40 mg capsule,delayed release 40 mg PO DAILY GERD 09/30/21 [History Last Taken 09/23/22] oxybutynin chloride 10 mg tablet,extended release 24 hr 10 mg PO BID OAB 09/30/21 [History Last Taken 09/23/22] melatonin 3 mg tablet 6 mg PO QHS SLEEP 12/23/21 [History Last Taken 07/22/23] apixaban 2.5 mg tablet (Eliquis) 2.5 mg PO BID BLOOD THINNER 06/19/22 [History Last Taken 07/22/23] amlodipine 10 mg tablet 10 mg PO DAILY BP 09/24/22 [History Last Taken 07/22/23] nystatin 100,000 unit/gram topical powder (Nystop) 1 applic topical 4X/DAY PRN Skin Irritation 09/24/22 [History Last Taken 07/22/23] pravastatin 20 mg tablet 20 mg PO DAILY CHOLESTEROL 09/24/22 [History Last Taken 09/23/22] estradiol 0.01% (0.1 mg/gram) vaginal cream 1 g vaginal QWEEK 07/23/23 [History Last Taken 07/18/23] mirabegron 50 mg tablet,extended release 24 hr (Myrbetriq) 50 mg PO DAILY 07/23/23 [History Last Taken Unknown] prednisone 20 mg tablet 40 mg (2 x 20 mg) PO DAILY #10 tabs 07/23/23 [Rx Last Taken Unknown] acetaminophen 500 mg capsule 1,000 mg PO TID pain 07/25/23 [History Last Taken Unknown] ascorbic acid (vitamin C) 500 mg tablet (Vitamin C) 500 mg PO DAILY 07/25/23 [History Last Taken Unknown] d-mannose 500 mg capsule (AZO D-Mannose) 2,000 mg PO DAILY 07/25/23 [History Last Taken Unknown] magnesium oxide 400 mg (241.3 mg magnesium) tablet 400 mg PO BID 07/25/23 [History Last Taken Unknown] methimazole 5 mg tablet 2.5 mg PO MOWEFR 07/25/23 [History Last Taken Unknown] polyethylene glycol 3350 17 gram/dose oral powder (Miralax) 17 g PO DAILY 07/25/23 [History Last Taken Unknown] sertraline 100 mg tablet 100 mg PO DAILY DEPRESSION 07/25/23 [History Last Taken Unknown] sertraline 25 mg tablet 25 mg PO DAILY 07/25/23 [History Last Taken Unknown] cephalexin 500 mg capsule 500 mg PO Q12 #14 CAPSULES 07/27/23 [Rx Last Taken Unknown] Allergy/AdvReac Type Severity Reaction Status Date / Time paroxetine HCl [From Paxil] AdvReac Mild Nausea Verified 07/27/23 08:23 rosuvastatin calcium AdvReac Mild Nausea Verified 07/27/23 08:23 [From Crestor] simvastatin [From Zocor] AdvReac Mild Nausea Verified 07/27/23 08:23 Family History Brother Heart disease Father Myocardial infarction Other Clotting disorder Surgical History History of bladder suspension procedure History of hernia repair History of partial hysterectomy History of thoracic aortic aneurysm repair (~06/22/06) Social History housing: assisted living facility Smoking Status: Never smoker second hand exposure: No alcohol intake: never substance use type: does not use caffeine: Yes Type: carbonated beverages Number of servings: 2 dia/christianity: Rastafarian seatbelt use: always do you feel safe at home: Yes EXAM Physical Exam Const Vital Signs: 07/27/23 21:11 07/27/23 21:40 Temperature 97.6 F L Temperature Source Temporal Pulse Rate 69 Respiratory Rate 12 Respiratory Effort Normal Blood Pressure 120/54 L Blood Pressure Mean 76 Pulse Ox 96 Oxygen Delivery Method Room Air [facility] Lab Data Labs: Laboratory Results - last 24 hr 07/27/23 22:10 Urine Color Yellow Urine Clarity Sl Cldy Urine pH 6.0 Ur Specific [place] 1.010 Urine Protein 15 H Urine Glucose (UA) Normal Urine Ketones Negative Urine Occult Blood 10 H Urine Nitrite Positive H Urine Bilirubin Negative Urine Urobilinogen Normal Ur Leukocyte Esterase 500 H Urine RBC 0-5 SEEN Urine WBC 25-50 SEEN Ur Squamous Epith Cells 5-10 SEEN Urine Bacteria RARE Urine Mucus 0 SEEN Radiography Diagnostic Testing: Clinical Impression(s) from Imaging Studies Brain CT 07/27/23 21:29 IMPRESSION: Small left occipital scalp hematoma. No acute intracranial hemorrhage. Electronically Signed: Ash Prater MD at 22:20 EST Reading Location ID and State: [facility] / [place] Tel , Service support , Discharge Plan Triage Chief Complaint: Fall ED Provider: Isidra Westfall Dx/Rx/DC Orders Clinical Impression: UTI (urinary tract infection), Contusion of scalp, Fall Instructions: ED Scalp Contusion, ED Cystitis Female Adult, ED Fall Prevention Prescriptions: New cephalexin 500 mg capsule 500 mg PO Q12 Qty: 14 0RF No Action melatonin 3 mg tablet 6 mg PO QHS acetaminophen 500 mg capsule 1,000 mg PO TID metoprolol tartrate 50 mg tablet 50 mg PO BID omeprazole 40 mg capsule,delayed release(DR/EC) 40 mg PO DAILY oxybutynin chloride 10 mg tablet extended release 24hr 10 mg PO BID Hold Instructions: Order Changed cyanocobalamin (vitamin B-12) 1,000 mcg tablet 1,000 mcg PO DAILY Eliquis 2.5 mg tablet 2.5 mg PO BID AZO D-Mannose 500 mg capsule 2,000 mg PO DAILY magnesium oxide 400 mg (241.3 mg magnesium) tablet 400 mg PO BID methimazole 5 mg tablet 2.5 mg PO MOWEFR polyethylene glycol 3350 [Miralax] 17 gram/dose powder 17 g PO DAILY sertraline 25 mg tablet 25 mg PO DAILY Rx Instructions: Take with 100 mg to = 125 mg daily ascorbic acid (vitamin C) [Vitamin C] 500 mg tablet 500 mg PO DAILY amlodipine 10 mg tablet 10 mg PO DAILY nystatin [Nystop] 100,000 unit/gram Powder 1 applic TOPICAL 4X/DAY PRN (Reason: Skin Irritation) pravastatin 20 mg tablet 20 mg PO DAILY sertraline 100 mg tablet 100 mg PO DAILY Rx Instructions: Take with 25 mg to = 125 mg daily estradiol 0.01 % (0.1 mg/gram) cream 1 g VAGINAL QWEEK Patient Comments: APPLY VAGINALLY THREE TIMES A WEEK BEFORE BED. Myrbetriq 50 mg tablet extended release 24 hr 50 mg PO DAILY prednisone 20 mg tablet 40 mg PO DAILY Qty: 10 0RF Primary Care Provider: Yohannes Acosta Referrals: Yohannes Acosta DO [Primary Care Provider] - 1-2 Weeks Disposition Disposition: Home, Self Care
--- NOTE | 2023-07-27 23:56 | ED.VIS.FALL ---
HPI <June Lund RN - Last Filed: 07/28/23 00:16> HPI - Fall History of Present Illness Chief Complaint: Fall Informant: patient Occured/Mechanism Occurred: Today Mechanism/Context: Yes same level fall Pain/Injury Pain Location: head Quality of Pain: Aching Current Severity: Mild Maximum Severity: Mild Worsened by: Palpation Associated Symptoms Associated Symptoms: Negative for Parasthesias, Weakness, Loss of function or Loss of consciousness Narrative Narrative: Patient presented to the ED via EMS from [facility] status post fall on Lis. Patient's states she was sitting on her walker fixing a curtain and bent over falling backwards hitting her head on a carpeted floor. Patient denies LOC. Reports pain to the back of her head. Patient denies other injuries. She does report urinary frequency and dysuria. She reports a history of UTIs. Patient denies any recent illness. 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 Nonspecific abnormal unspecified cardiovascular function study NSTEMI (non-ST elevated myocardial infarction) Old myocardial infarction Palpitations Precordial chest pain Pulmonary emboli Thyroid nodule Ventricular premature depolarization Home Medications cyanocobalamin (vitamin B-12) 1,000 mcg tablet 1,000 mcg PO DAILY SUPPLEMENT 09/30/21 [History Last Taken 09/23/22] metoprolol tartrate 50 mg tablet 50 mg PO BID HEART 09/30/21 [History Last Taken 07/22/23] omeprazole 40 mg capsule,delayed release 40 mg PO DAILY GERD 09/30/21 [History Last Taken 09/23/22] oxybutynin chloride 10 mg tablet,extended release 24 hr 10 mg PO BID OAB 09/30/21 [History Last Taken 09/23/22] melatonin 3 mg tablet 6 mg PO QHS SLEEP 12/23/21 [History Last Taken 07/22/23] apixaban 2.5 mg tablet (Eliquis) 2.5 mg PO BID BLOOD THINNER 06/19/22 [History Last Taken 07/22/23] amlodipine 10 mg tablet 10 mg PO DAILY BP 09/24/22 [History Last Taken 07/22/23] nystatin 100,000 unit/gram topical powder (Nystop) 1 applic topical 4X/DAY PRN Skin Irritation 09/24/22 [History Last Taken 07/22/23] pravastatin 20 mg tablet 20 mg PO DAILY CHOLESTEROL 09/24/22 [History Last Taken 09/23/22] estradiol 0.01% (0.1 mg/gram) vaginal cream 1 g vaginal QWEEK 07/23/23 [History Last Taken 07/18/23] mirabegron 50 mg tablet,extended release 24 hr (Myrbetriq) 50 mg PO DAILY 07/23/23 [History Last Taken Unknown] prednisone 20 mg tablet 40 mg (2 x 20 mg) PO DAILY #10 tabs 07/23/23 [Rx Last Taken Unknown] acetaminophen 500 mg capsule 1,000 mg PO TID pain 07/25/23 [History Last Taken Unknown] ascorbic acid (vitamin C) 500 mg tablet (Vitamin C) 500 mg PO DAILY 07/25/23 [History Last Taken Unknown] d-mannose 500 mg capsule (AZO D-Mannose) 2,000 mg PO DAILY 07/25/23 [History Last Taken Unknown] magnesium oxide 400 mg (241.3 mg magnesium) tablet 400 mg PO BID 07/25/23 [History Last Taken Unknown] methimazole 5 mg tablet 2.5 mg PO MOWEFR 07/25/23 [History Last Taken Unknown] polyethylene glycol 3350 17 gram/dose oral powder (Miralax) 17 g PO DAILY 07/25/23 [History Last Taken Unknown] sertraline 100 mg tablet 100 mg PO DAILY DEPRESSION 07/25/23 [History Last Taken Unknown] sertraline 25 mg tablet 25 mg PO DAILY 07/25/23 [History Last Taken Unknown] cephalexin 500 mg capsule 500 mg PO Q12 #14 CAPSULES 07/27/23 [Rx Last Taken Unknown] Allergy/AdvReac Type Severity Reaction Status Date / Time paroxetine HCl [From Paxil] AdvReac Mild Nausea Verified 07/27/23 08:23 rosuvastatin calcium AdvReac Mild Nausea Verified 07/27/23 08:23 [From Crestor] simvastatin [From Zocor] AdvReac Mild Nausea Verified 07/27/23 08:23 Family History Brother Heart disease Father Myocardial infarction Other Clotting disorder Surgical History History of bladder suspension procedure History of hernia repair History of partial hysterectomy History of thoracic aortic aneurysm repair (~06/22/06) Social History housing: assisted living facility Smoking Status: Never smoker second hand exposure: No alcohol intake: never substance use type: does not use caffeine: Yes Type: carbonated beverages Number of servings: 2 dia/mormon: Jainism seatbelt use: always do you feel safe at home: Yes ROS <June Lund RN - Last Filed: 07/28/23 00:16> ROS ED Eyes Eyes: Denies change in vision ENT ENT ED: Denies rhinorrhea or sore throat Cardiovascular Cardiovascular: Denies chest pain, palpitations or racing heartbeat Respiratory/Chest Respiratory/Chest: Denies cough, dyspnea or dyspnea on exertion Gastrointestinal Gastrointestinal: Denies abdominal pain, diarrhea, nausea or vomiting Genitourinary Genitourinary ED: Reports dysuria and urinary frequency; Denies hematuria Musculoskeletal Musculoskeletal: Denies arthralgias or myalgias Neurologic Neurologic: Reports headache(s), weakness and other Details: Generalized weakness Psychiatric Psychiatric: Reports other Details: History of dementia ; Denies anxiety or depression EXAM <June Lund RN - Last Filed: 07/28/23 00:16> Physical Exam Narrative Exam Narrative: Patient is well dressed, appears stated age. Const Vital Signs: 07/27/23 21:11 07/27/23 21:40 07/27/23 23:10 Temperature 97.6 F L 98.1 F Temperature Source Temporal Temporal Pulse Rate 69 75 Respiratory Rate 12 16 Respiratory Effort Normal Blood Pressure 120/54 L 131/78 H Blood Pressure Mean 76 95 Pulse Ox 96 93 Oxygen Delivery Method Room Air Room Air 07/27/23 21:10 07/28/23 00:42 Temperature 98.1 F Temperature Source Pulse Rate 73 Respiratory Rate 16 Respiratory Effort Blood Pressure 128/68 H 131/78 H Blood Pressure Mean 88 95 Pulse Ox 93 Oxygen Delivery Method Positive well nourished and well developed General Appearance ED: well developed and NAD HEENT Reports normocephalic contusion Contusion Size: ~4 cm to left occipital area Eyes PERRL and EOMs intact bilaterally Neck full ROM General: Negative for tenderness Chest Wall inspection of chest normal and palpation of chest normal Resp normal respiratory effort and clear to auscultation bilaterally Auscultation: Negative for rales, rhonchi or wheezes Cardio regular rate, S1 normal heart sound and S2 normal heart sound GI non-tender, non-distended and no masses Auscultation: normoactive bowel sounds Palpation: soft Narrative: Patient reports dysuria and urinary frequency. Denies hematuria Back/Spine Cervical Spine: Negative for cervical spine tenderness Thoracic Spine / Upper Back: Negative for thoracic spinal tenderness Lumbar Spine / Lower Back: Negative for lumbar spinal tenderness Neuro Neuro Narrative: Patient oriented to person, year, president. States she is in [place] and the month is December. Sensorium / Orientation: alert and oriented to person Motor Exam: general weakness Psych mental status grossly normal Skin Lesions: no lesions Rashes: no rashes Trauma: abrasion <Dr. Isidra Westfall MD - Last Filed: 07/28/23 01:04> Physical Exam Const Vital Signs: 07/27/23 21:11 07/27/23 21:40 07/27/23 23:10 Temperature 97.6 F L 98.1 F Temperature Source Temporal Temporal Pulse Rate 69 75 Respiratory Rate 12 16 Respiratory Effort Normal Blood Pressure 120/54 L 131/78 H Blood Pressure Mean 76 95 Pulse Ox 96 93 Oxygen Delivery Method Room Air Room Air 07/27/23 21:10 07/28/23 00:42 Temperature 98.1 F Temperature Source Pulse Rate 73 Respiratory Rate 16 Respiratory Effort Blood Pressure 128/68 H 131/78 H Blood Pressure Mean 88 95 Pulse Ox 93 Oxygen Delivery Method MDM <June Lund RN - Last Filed: 07/28/23 00:16> [facility] Narrative Medical decision making narrative: CT of the head obtained to evaluate for hemorrhage due to fall on anticoagulants. UA obtained to evaluate for UTI due to dysuria and urinary frequency. History & Record Review Discussion w/independent historian: Patient and Family Lab Data Attestation: I reviewed the patient's lab results. Labs: Laboratory Results - last 24 hr 07/27/23 22:10 Urine Color Yellow Urine Clarity Sl Cldy Urine pH 6.0 Ur Specific [place] 1.010 Urine Protein 15 H Urine Glucose (UA) Normal Urine Ketones Negative Urine Occult Blood 10 H Urine Nitrite Positive H Urine Bilirubin Negative Urine Urobilinogen Normal Ur Leukocyte Esterase 500 H Urine RBC 0-5 SEEN Urine WBC 25-50 SEEN Ur Squamous Epith Cells 5-10 SEEN Urine Bacteria RARE Urine Mucus 0 SEEN Radiography Diagnostic Testing: Clinical Impression(s) from Imaging Studies Brain CT 07/27/23 21:29 IMPRESSION: Small left occipital scalp hematoma. No acute intracranial hemorrhage. Electronically Signed: Ash Prater MD at 22:20 EST , CT of the head shows a small left occipital scalp hematoma. Negative for intracranial hemorrhage. Differential Diagnosis Differential Diagnosis: Intracranial hemorrhage Differential Diagnosis: UTI Differential Diagnosis: Skull fracture Management Discussion w/another healthcare provider: Other (Dr Westfall, ED provider) Treatment and Re-Evaluation Narrative: Urinalysis is consistent with a UTI showing hematuria, positive for nitrites, and 25-50 WBCs. Patient given Keflex 500 mg while here in the ED. Prescription will be provided for continued antibiotics. CT of the head shows a small left occipital scalp hematoma. Negative for intracranial hemorrhage. <Dr. Isidra Westfall MD - Last Filed: 07/28/23 01:04> [facility] Lab Data Labs: Laboratory Results - last 24 hr 07/27/23 22:10 Urine Color Yellow Urine Clarity Sl Cldy Urine pH 6.0 Ur Specific [place] 1.010 Urine Protein 15 H Urine Glucose (UA) Normal Urine Ketones Negative Urine Occult Blood 10 H Urine Nitrite Positive H Urine Bilirubin Negative Urine Urobilinogen Normal Ur Leukocyte Esterase 500 H Urine RBC 0-5 SEEN Urine WBC 25-50 SEEN Ur Squamous Epith Cells 5-10 SEEN Urine Bacteria RARE Urine Mucus 0 SEEN Radiography Diagnostic Testing: Clinical Impression(s) from Imaging Studies Brain CT 07/27/23 21:29 IMPRESSION: Small left occipital scalp hematoma. No acute intracranial hemorrhage. Electronically Signed: Ash Prater MD at 22:20 EST , Treatment and Re-Evaluation Narrative: Urinalysis is consistent with a UTI showing hematuria, positive for nitrites, and 25-50 WBCs. Patient given Keflex 500 mg while here in the ED. Prescription will be provided for continued antibiotics. CT of the head shows a small left occipital scalp hematoma. Negative for intracranial hemorrhage. Patient seen and evaluated with TAYLOR. I personally interviewed and examined the patient. I was involved in all aspects of patient's orders, interpretation of results, and treatment. Patient presents after fall at [facility]. She reportedly was sitting on her rollator, leaning forward to fixing curtains when she fell backwards striking her head on carpeted floor. There was no reported loss of consciousness. Patient is currently on Eliquis. She also complains of some mild dysuria with history of UTIs. Patient lying in bed no acute distress. Head and neck examination reveals scalp contusion to the left posterior parietal scalp. No laceration noted. No C-spine tenderness noted on exam. Heart is regular rate and rhythm. Lung sounds are clear. Abdomen is soft and nontender. Lower extremity semination reveals equal leg lengths bilaterally. No hip pain with leg rotation. Neuro exam reveals patient to be pleasantly confused with history of dementia. She appears to be at baseline per records. CT scan of the head reveals left occipital scalp hematoma. No intracranial injury noted. Urinalysis reveals evidence of infection with 25-50 white cells and positive nitrates. Review of prior urine cultures revealed Klebsiella that was pansensitive. Patient be treated with a course of Keflex, first dose given here. Patient be discharged back to [facility] with return instructions. Discharge Plan Triage Chief Complaint: Fall ED Provider: Isidra Westfall Dx/Rx/DC Orders Clinical Impression: UTI (urinary tract infection), Contusion of scalp, Fall Instructions: ED Scalp Contusion, ED Cystitis Female Adult, ED Fall Prevention Prescriptions: New cephalexin 500 mg capsule 500 mg PO Q12 Qty: 14 0RF No Action melatonin 3 mg tablet 6 mg PO QHS acetaminophen 500 mg capsule 1,000 mg PO TID metoprolol tartrate 50 mg tablet 50 mg PO BID omeprazole 40 mg capsule,delayed release(DR/EC) 40 mg PO DAILY oxybutynin chloride 10 mg tablet extended release 24hr 10 mg PO BID Hold Instructions: Order Changed cyanocobalamin (vitamin B-12) 1,000 mcg tablet 1,000 mcg PO DAILY Eliquis 2.5 mg tablet 2.5 mg PO BID AZO D-Mannose 500 mg capsule 2,000 mg PO DAILY magnesium oxide 400 mg (241.3 mg magnesium) tablet 400 mg PO BID methimazole 5 mg tablet 2.5 mg PO MOWEFR polyethylene glycol 3350 [Miralax] 17 gram/dose powder 17 g PO DAILY sertraline 25 mg tablet 25 mg PO DAILY Rx Instructions: Take with 100 mg to = 125 mg daily ascorbic acid (vitamin C) [Vitamin C] 500 mg tablet 500 mg PO DAILY amlodipine 10 mg tablet 10 mg PO DAILY nystatin [Nystop] 100,000 unit/gram Powder 1 applic TOPICAL 4X/DAY PRN (Reason: Skin Irritation) pravastatin 20 mg tablet 20 mg PO DAILY sertraline 100 mg tablet 100 mg PO DAILY Rx Instructions: Take with 25 mg to = 125 mg daily estradiol 0.01 % (0.1 mg/gram) cream 1 g VAGINAL QWEEK Patient Comments: APPLY VAGINALLY THREE TIMES A WEEK BEFORE BED. Myrbetriq 50 mg tablet extended release 24 hr 50 mg PO DAILY prednisone 20 mg tablet 40 mg PO DAILY Qty: 10 0RF Primary Care Provider: Yohannes Acosta Referrals: Yohannes Acosta DO [Primary Care Provider] - 1-2 Weeks Activity Restrictions/Additional Instructions: Complete full course of antibiotics. Follow-up with Dr. Acosta as needed. Tylenol for headache as needed Disposition Disposition: Home, Self Care
[2023-07-28] MEDS: Cephalexin 250 MG Capsule 500 MG PO (00:18)
[2023-07-28 00:42] VITALS: BP 131/78; PULSE 73; RESP 16; TEMP 36.7; O2SAT 93
--- NOTE | 2023-07-28 19:40 | ED.RN ---
THIS HORSE WRANGLER CAME ON 07/28/23 183 AND FOUND SCRIPT IN MEDICAL RECORDS PILE. CALLED [facility], RECEIVED FAX NUMBER [phone]. SCRIPT FAXED TO NUMBER.
== END 2023-07-28 02:18 | disposition home or self-care (01) ==
PROVIDERS: Emergency Provider Emergency Medicine; PCP Student in an Organized Health Care Education/Training Program; Visit Provider Emergency Medicine
DX: S00.03XA Contusion of scalp, initial encounter (principal); F03.90 Unspecified dementia, unspecified severity, without behavioral disturbance, psychotic disturbance, mood disturbance, and anxiety; N39.0 Urinary tract infection, site not specified; Z79.01 Long term (current) use of anticoagulants; W18.30XA Fall on same level, unspecified, initial encounter; Z87.440 Personal history of urinary (tract) infections; R35.0 Frequency of micturition; R30.0 Dysuria; I25.10 Atherosclerotic heart disease of native coronary artery without angina pectoris; I10 Essential (primary) hypertension; E78.5 Hyperlipidemia, unspecified; Z79.899 Other long term (current) drug therapy; Z86.711 Personal history of pulmonary embolism
CPT/HCPCS: 70450; 81001; 99283

== ENCOUNTER → 2024-01-28 | Outpatient (CLI) | payer MEDICARE, MEDICAID, SELFPAY ==
[2024-01-28 11:24] LABS: Absolute Lymphocyte Count 1.27 X10^3/uL (0.83-4.51); Basophil# 0.03 X10^3/uL; Basophil% 0.4 % (0-1); Eosinophil# 0.17 X10^3/uL; Eosinophils% 2.1 % (0-5); Hematocrit 34.4 % (37-47); Hemoglobin 10.6 g/dL (12.0-15.0); Lymphocyte # 1.27 X10^3/ul (0.83-4.51); Lymphocyte % 15.8 % (19-41); Mean Corp Hgb Conc 30.8 g/dL (32-36); Mean Corpuscular Hgb 28.4 pg (27.0-32.0); Mean Corpuscular Volume 92.2 fL (81-99); Mean Platelet Vol. 9.2 fl (6.2-12.0); Monocyte# 0.58 X10^3/uL; Monocyte% 7.2 % (0-10); NRBC Flagged by Analyzer 0 % (0-5); Neutrophil # 5.95 X10^3/uL (2.7-7.7); Platelet Count 202 K/mm3 (150-450); RBC Distribution Width CV 15.2 % (11.6-14.6); RBC Distribution Width SD 51.6 fl (35.1-43.9); Red Blood Count 3.73 M/mm3 (4.2-5.4)
[2024-01-28 12:11] LABS: Anion Gap 6 (5-15); BUN 33 mg/dL (7-18); BUN/Creat Ratio 21.9 RATIO (10-20); Calcium,Total 9.6 mg/dL (8.5-10.1); Chloride 107 mmol/L (98-107); Creatinine, Serum 1.51 mg/dL (0.55-1.02); EST Glomerular Filtration Rate 35 mL/min (>60); Est Glom Filt Rate - Afr Amer 42 mL/min (>60); Glucose 78 mg/dL (74-106); Potassium 4.9 mmol/L (3.5-5.1); Sodium Level 139 mmol/L (136-145)
== END | disposition home or self-care (01) ==
PROVIDERS: PCP Internal Medicine; Referring Provider Internal Medicine Cardiovascular Disease; Visit Provider Internal Medicine Cardiovascular Disease
DX: D64.9 Anemia, unspecified (principal); Z79.01 Long term (current) use of anticoagulants
CPT/HCPCS: 36415; 80048; 85025